=== PATIENT | female | born 1980 | race African-American/Black ===

== ENCOUNTER 2016-06-10 09:58 | Emergency (ER) | payer OTHER ==
[~2016-06-10] VITALS: Ht 154.9 cm; Wt 81.6 kg
[~2016-06-10 09:58] MED LIST: AZIT250T PO; BENZ100C PO; HYDR-971 PO; PRED50TA PO; PROAIR HFA8.5 GM INH; PROM118S2 PO; SULF1TAB24 PO
--- NOTE | 2016-06-10 10:29 | PHYS DOC ---
Past Medical History Past Medical History: No Pertinent History Past Surgical History: No Surgical History, Alcohol Use: None Drug Use: None Adult General Chief Complaint Chief Complaint: HEADACHE HPI HPI Patient is a 36 year old female who presents with back pain and headache. She states also roughly 2 days ago she started having some generalized body aches with a headache behind her eyes. She denies any neck pain fevers chills nausea or vomiting. She states it felt like "the flu" she states her back hurts in her high lumbar area and she states is on each side is not in the middle. She denies any constipation or diarrhea or dysuria. She took 800 mg of Motrin and states the headache has resolved but she feels like it "could be coming back on now" she denies any confusion. She was around her son who also had similar symptoms last week. She states she does have a history of migraines but this headache felt different than her normal migraines. Review of Systems Review of Systems Constitutional: Denies fever or chills [] Eyes: Denies change in visual acuity, redness, or eye pain [] HENT: Denies nasal congestion or sore throat [] Respiratory: Denies cough or shortness of breath [] Cardiovascular: No additional information not addressed in HPI [] GI: Denies abdominal pain, nausea, vomiting, bloody stools or diarrhea [] : Denies dysuria or hematuria [] Musculoskeletal: Positive for back pain [] Integument: Denies rash or skin lesions [] Neurologic: Denies headache, focal weakness or sensory changes [] Endocrine: Denies polyuria or polydipsia [] Current Medications Current Medications Current Medications Medications (Trade) Dose Ordered Sig/[facility] Start Time Stop Time Status Last Admin Dose Admin Acetaminophen (Tylenol) 1,000 mg 1X ONCE 06/10/16 11:00 06/10/16 11:01 DC 06/10/16 11:03 1,000 MG Allergies Allergies Allergies Coded Allergies Type Severity Reaction Last Updated Verified No Known Drug Allergies 01/11/14 No Physical Exam Physical Exam Constitutional: Well developed, well nourished, no acute distress, non-toxic appearance. [] HENT: Normocephalic, atraumatic, bilateral external ears normal, oropharynx moist, no oral exudates, nose normal. [] Eyes: PERRLA, EOMI, conjunctiva normal, no discharge. [] Neck: Normal range of motion, no tenderness, supple, no stridor. [] Cardiovascular:Heart rate regular rhythm, no murmur [] Lungs & Thorax: Bilateral breath sounds clear to auscultation [] Abdomen: Bowel sounds normal, soft, no tenderness, no masses, no pulsatile masses. [] Skin: Warm, dry, no erythema, no rash. [] Back: No tenderness midline, no CVA tenderness. [] Extremities: No tenderness, no cyanosis, no clubbing, ROM intact, no edema. [] Neurologic: Alert and oriented X 3, normal motor function, normal sensory function, no focal deficits noted. [] Psychologic: Affect normal, judgement normal, mood normal. [] Current Patient Data Vital Signs Vital Signs Date Time Temp Pulse Resp B/P Pulse Ox O2 Delivery O2 Flow Rate FiO2 06/10/16 10:35 98.5 99 18 125/91 100 Room Air 98.5 Lab Values Laboratory Tests Test 06/10/16 10:50 06/10/16 11:02 06/10/16 11:15 Urine Collection Type Unknown Urine Color Yellow Urine Clarity Clear Urine pH 7.0 Urine Specific [place] >=1.030 Urine Protein Negativemg/dL (NEG-TRACE) Urine Glucose (UA) Negativemg/dL (NEG) Urine Ketones (Stick) Tracemg/dL (NEG) Urine Blood Negative (NEG) Urine Nitrite Negative (NEG) Urine Bilirubin Negative (NEG) Urine Urobilinogen Dipstick 1.0mg/dL (0.2 mg/dL) Urine Leukocyte Esterase Small (NEG) Urine RBC 0/HPF (0-2) Urine WBC 5-10/HPF (0-4) Urine Squamous Epithelial Cells Many/LPF Urine Bacteria Few/HPF (0-FEW) Urine Mucus Marked/LPF Urine Yeast Present/HPF Urine Test Negative (NEG) Influenza Type A Antigen Negative (NEGATIVE) Influenza Type B Antigen Negative (NEGATIVE) White Blood Count 7.5x10^3/uL (4.0-11.0) Red Blood Count 4.55x10^6/uL (3.50-5.40) Hemoglobin 14.1g/dL (12.0-15.5) Hematocrit 41.7% (36.0-47.0) Mean Corpuscular Volume 92fL (79-100) Mean Corpuscular Hemoglobin 31pg (25-35) Mean Corpuscular Hemoglobin Concent 34g/dL (31-37) Red Cell Distribution Width 14.0% (11.5-14.5) Platelet Count 278x10^3/uL (140-400) Sodium Level 142mmol/L (136-145) Potassium Level 3.8mmol/L (3.5-5.1) Chloride Level 103mmol/L (98-107) Carbon Dioxide Level 30mmol/L (21-32) Anion Gap 9 (6-14) Blood Urea Nitrogen 19mg/dL (7-20) Creatinine 0.7mg/dL (0.6-1.0) Estimated GFR (Cockcroft-Gault) 114.6 BUN/Creatinine Ratio 27 (6-20) H Glucose Level 97mg/dL (70-99) Calcium Level 9.2mg/dL (8.5-10.1) Total Bilirubin 0.7mg/dL (0.2-1.0) Aspartate Amino Transferase (AST) 11U/L (15-37) L Alanine Aminotransferase (ALT) 17U/L (14-59) Alkaline Phosphatase 47U/L (46-116) Total Protein 8.1g/dL (6.4-8.2) Albumin 4.4g/dL (3.4-5.0) Albumin/Globulin Ratio 1.2 (1.0-1.7) Laboratory Tests 06/10/16 11:15 Laboratory Tests 06/10/16 11:15 EKG EKG [] Radiology/Procedures Radiology/Procedures [facility] [address] [place], [place] [id number] IMAGING REPORT Signed PATIENT: KEZIA COLLINS ACCOUNT: [id number] : 1980 LOCATION: ER AGE: 36 SEX: F EXAM STATUS: REG ER ORD. PHYSICIAN: DIANNE DIOP MD REASON: headache WAITING ON UCG. PROCEDURE: HEAD WO CONTRAST CT of the head without contrast, 06/10/2016: History: Headache Comparison is made to a study from 02/10/2008. The ventricles are within normal limits in size. There is no shift of the midline structures. There is no evidence of acute intracranial hemorrhage or mass effect. IMPRESSION: No acute intracranial abnormality is detected. PQRS Compliance Statement: One or more of the following individualized dose reduction techniques were utilized for this examination: 1. Automated exposure control 2. Adjustment of the mA and/or kV according to patient size 3. Use of iterative reconstruction technique DICTATED and SIGNED BY: CIARRA TERRY MD DATE: 06/10/16 1150 CC: DIANNE DIOP MD; NO PCP ~ Impressions: body aches Headache Course & Med Decision Making Course & Med Decision Making Pertinent Labs and Imaging studies reviewed. (See chart for details) Labs show any acute maladies. She is to follow-up with her primary care physician. She is return ER for fevers, confusion, neck stiffness or other concerns. She is instructed to take [id number] analgesics. Dragon Disclaimer Dragon Disclaimer This electronic medical record was generated, in whole or in part, using a voice recognition dictation system. Departure Departure Impression: Primary Impression: Viral syndrome Disposition: HOME, SELF-CARE Condition: STABLE Referrals: NO PCP (PCP) Patient Instructions: Viral Syndrome Additional Instructions: Influenza is negative in addition to your labs and urinalysis. Your not . You being discharged home. You can follow-up with her primary care physician. If you don not have one, the nurses will provide to a pamphlet with providers that you can follow-up with. He can take [id number] medicines for her bodyaches and other concerns. Return the ER for fevers, confusion, neck stiffness or other concerns. DIANNE DIOP MD Jun 10, 2016 10:29
[2016-06-10 10:56] LABS: NEG OBC UR NEG; POS OBC UR POS
[2016-06-10 11:00] LABS: BILIRUBIN,URINE NEGATIVE (NEG); GLUCOSE,URINE NEGATIVE (NEG); NITRITE,URINE NEGATIVE (NEG); PROTEIN,URINE NEGATIVE (NEG-TRACE)
[2016-06-10] MEDS ORDERED: ACETAMINOPHEN 500 MG TABLET PO ONE (11:00)
[2016-06-10 11:09] LABS: BACTERIA,URINE FEW /HPF (0-FEW); RBC,URINE 0 /HPF (0-2); SQUAMOUS EPITHELIAL CELL,UR MANY /LPF
[2016-06-10 11:10] LABS: YEAST,URINE PRESENT /HPF
[2016-06-10 11:25] LABS: HEMATOCRIT 41.7 % (36.0-47.0); HEMOGLOBIN 14.1 g/dL (12.0-15.5); RED BLOOD COUNT 4.55 x10^6/uL (3.50-5.40); WHITE BLOOD COUNT 7.5 x10^3/uL (4.0-11.0)
[2016-06-10 11:31] LABS: OBC FLU VALID
[2016-06-10 11:33] VITALS: BP 123/80
[2016-06-10 11:41] LABS: CALCIUM 9.2 mg/dL (8.5-10.1); CREATININE 0.7 mg/dL (0.6-1.0); GFR 114.6; POTASSIUM 3.8 mmol/L (3.5-5.1)
[2016-06-10 11:47] LABS: ALBUMIN 4.4 g/dL (3.4-5.0); ALBUMIN/GLOBULIN RATIO 1.2 (1.0-1.7); TOTAL BILIRUBIN 0.7 mg/dL (0.2-1.0); TOTAL PROTEIN 8.1 g/dL (6.4-8.2)
--- NOTE | 2016-06-10 11:54 | RAD ---
CT of the head without contrast, 06/10/2016: History: Headache Comparison is made to a study from 02/10/2008. The ventricles are within normal limits in size. There is no shift of the midline structures. There is no evidence of acute intracranial hemorrhage or mass effect. IMPRESSION: No acute intracranial abnormality is detected. PQRS Compliance Statement: One or more of the following individualized dose reduction techniques were utilized for this examination: 1. Automated exposure control 2. Adjustment of the mA and/or kV according to patient size 3. Use of iterative reconstruction technique
== END 2016-06-10 12:40 | disposition home or self-care (01) ==
LOC: ER 09:58
DX: B34.9 Viral infection, unspecified (principal); R51 Headache; G43.909 Migraine, unspecified, not intractable, without status migrainosus
CPT/HCPCS: 36415; 70450; 80053; 81001; 81025; 85027; 87086; 87804; 99285-25

== ENCOUNTER 2016-11-13 16:13 | Inpatient (IN) | payer OTHER ==
[~2016-11-13] VITALS: Ht 154.9 cm; Wt 85.3 kg
--- NOTE | 2016-11-13 17:24 | PHYS DOC ---
Past Medical History Past Medical History: No Pertinent History Past Surgical History: No Surgical History, Alcohol Use: Occasionally Drug Use: Marijuana Adult General Chief Complaint Chief Complaint: ABDOMINAL PAIN HPI HPI Patient is a 36 year old female presents to the emergency department stating that she is having generalized abdominal pain with nausea vomiting. She states that she has had a fever at home although did not take her temperature. Patient states that she was seen at [facility] today and had lab work done an ultrasound with everything negative. Patient states she continues to have complete abdominal pain and discomfort in spite of been provided with Zofran and Bentyl. Patient states at this time she is having white vaginal discharge. She states that she is sexually active with one partner she is concern for sexual transmitted infections. Patient continues to state that she has vomited 6 times within the last 24 hours. She states that there is been some blood specks noted in the saliva. Patient denies normal bowel movements with the last one being yesterday. Patient does state that she's on Suboxone with the last dose being yesterday. Patient states she is not having withdrawal as she is only taking Suboxone 2 days ago. Review of Systems Review of Systems Constitutional: Denies fever or chills [] Eyes: Denies change in visual acuity, redness, or eye pain [] HENT: Denies nasal congestion or sore throat [] Respiratory: Denies cough or shortness of breath [] Cardiovascular: No additional information not addressed in HPI [] GI: abdominal pain, nausea, vomiting, denies bloody stools or diarrhea [] : Denies dysuria or hematuria [] Musculoskeletal: Denies back pain or joint pain [] Integument: Denies rash or skin lesions [] Neurologic: Denies headache, focal weakness or sensory changes [] Endocrine: Denies polyuria or polydipsia [] Current Medications Current Medications Current Medications Medications (Trade) Dose Ordered Sig/[facility] Start Time Stop Time Status Last Admin Dose Admin Azithromycin (Zithromax) 1,000 mg 1X ONCE 11/13/16 17:30 11/13/16 17:31 DC 11/13/16 17:41 1,000 MG Ceftriaxone Sodium (Rocephin Im) 250 mg 1X ONCE 11/13/16 17:30 11/13/16 17:31 DC 11/13/16 17:40 250 MG Fentanyl Citrate (Fentanyl 2ml Vial) 50 mcg PRN Q15MIN PRN 11/13/16 18:00 11/14/16 17:59 11/13/16 18:48 50 MCG Info (Do NOT chart on this entry -- for MONITORING) 1 each PRN DAILY PRN 11/13/16 18:00 11/15/16 17:59 Iohexol (Omnipaque 240 Mg/ml) 30 ml 1X ONCE 11/13/16 18:00 11/13/16 18:01 DC 11/13/16 18:00 30 ML Iohexol (Omnipaque 300 Mg/ml) 75 ml 1X ONCE 11/13/16 18:00 11/13/16 18:01 DC 11/13/16 19:21 75 ML Metronidazole (Flagyl) 2,000 mg 1X ONCE 11/13/16 17:30 11/13/16 17:31 DC 11/13/16 17:41 2,000 MG Ondansetron HCl (Zofran) 4 mg 1X ONCE 11/13/16 18:00 11/13/16 18:01 DC 11/13/16 18:09 4 MG Promethazine HCl (Phenergan Im) 25 mg 1X ONCE 11/13/16 17:30 11/13/16 17:31 DC 11/13/16 17:40 25 MG Sodium Chloride 1,000 ml @ 1,000 mls/hr 1X ONCE 11/13/16 18:00 11/13/16 18:59 DC 11/13/16 18:10 1,000 MLS/HR Allergies Allergies Allergies Coded Allergies Type Severity Reaction Last Updated Verified No Known Drug Allergies 01/11/14 No Physical Exam Physical Exam Constitutional: Well developed, well nourished, no acute distress, non-toxic appearance. [] HENT: Normocephalic, atraumatic, bilateral external ears normal, oropharynx moist, no oral exudates, nose normal. [] Eyes: PERRLA, EOMI, conjunctiva normal, no discharge. [] Neck: Normal range of motion, no tenderness, supple, no stridor. [] Cardiovascular:Heart rate regular rhythm, no murmur [] Lungs & Thorax: Bilateral breath sounds clear to auscultation [] Abdomen: Bowel sounds hypoactive, soft, generalized abdominal tenderness, no masses, no pulsatile masses. [] Skin: Warm, dry, no erythema, no rash. [] Back: No tenderness Extremities: No tenderness, no cyanosis, no clubbing, ROM intact, no edema. [] Neurologic: Alert and oriented X 3, normal motor function, normal sensory function, no focal deficits noted. [] Psychologic: Affect normal, judgement normal, mood normal. [] Vaginal exam completed: Speculum exam patient with foul odor noted with white vaginal discharge. Manual exam bilateral adnexal tenderness, seemed to the noted. Exam completed with Laura MEREDITH at bedside Current Patient Data Vital Signs Vital Signs Date Time Temp Pulse Resp B/P (MAP) Pulse Ox O2 Delivery O2 Flow Rate FiO2 11/13/16 19:26 88 22 158/83 (108) 98 Room Air 11/13/16 16:40 99.7 99.7 Lab Values Laboratory Tests Test 11/13/16 16:26 11/13/16 16:59 11/13/16 17:15 POC Urine HCG, Qualitative Hcg negative (Negative) White Blood Count 22.3 x10^3/uL (4.0-11.0) H Red Blood Count 4.12 x10^6/uL (3.50-5.40) Hemoglobin 13.1 g/dL (12.0-15.5) Hematocrit 39.1 % (36.0-47.0) Mean Corpuscular Volume 95 fL (79-100) Mean Corpuscular Hemoglobin 32 pg (25-35) Mean Corpuscular Hemoglobin Concent 34 g/dL (31-37) Red Cell Distribution Width 13.9 % (11.5-14.5) Platelet Count 256 x10^3/uL (140-400) Neutrophils (%) (Auto) 84 % (31-73) H Lymphocytes (%) (Auto) 9 % (24-48) L Monocytes (%) (Auto) 6 % (0-9) Eosinophils (%) (Auto) 0 % (0-3) Basophils (%) (Auto) 0 % (0-3) Neutrophils # (Auto) 18.8 x10^3uL (1.8-7.7) H Lymphocytes # (Auto) 2.1 x10^3/uL (1.0-4.8) Monocytes # (Auto) 1.4 x10^3/uL (0.0-1.1) H Eosinophils # (Auto) 0.0 x10^3/uL (0.0-0.7) Basophils # (Auto) 0.1 x10^3/uL (0.0-0.2) Segmented Neutrophils % 86 % (35-66) H Lymphocytes % 6 % (24-48) L Monocytes % 7 % (0-10) Basophils % 1 % (0-3) Platelet Estimate Adequate (ADEQUATE) Sodium Level 136 mmol/L (136-145) Potassium Level 3.4 mmol/L (3.5-5.1) L Chloride Level 100 mmol/L (98-107) Carbon Dioxide Level 24 mmol/L (21-32) Anion Gap 12 (6-14) Blood Urea Nitrogen 13 mg/dL (7-20) Creatinine 0.6 mg/dL (0.6-1.0) Estimated GFR (Cockcroft-Gault) 136.9 BUN/Creatinine Ratio 22 (6-20) H Glucose Level 104 mg/dL (70-99) H Calcium Level 9.1 mg/dL (8.5-10.1) Total Bilirubin 1.4 mg/dL (0.2-1.0) H Aspartate Amino Transferase (AST) 16 U/L (15-37) Alanine Aminotransferase (ALT) 17 U/L (14-59) Alkaline Phosphatase 58 U/L (46-116) Total Protein 8.1 g/dL (6.4-8.2) Albumin 4.2 g/dL (3.4-5.0) Albumin/Globulin Ratio 1.1 (1.0-1.7) Urine Collection Type U cath Urine Color Yellow Urine Clarity Clear Urine pH 7.0 Urine Specific [place] >=1.030 Urine Protein 30 mg/dL (NEG-TRACE) Urine Glucose (UA) Negative mg/dL (NEG) Urine Ketones (Stick) 15 mg/dL (NEG) Urine Blood Small (NEG) Urine Nitrite Negative (NEG) Urine Bilirubin Negative (NEG) Urine Urobilinogen Dipstick 1.0 mg/dL (0.2 mg/dL) Urine Leukocyte Esterase Negative (NEG) Urine RBC 6-10 /HPF (0-2) Urine WBC Occ /HPF (0-4) Urine Squamous Epithelial Cells Few /LPF Urine Bacteria Few /HPF (0-FEW) Urine Mucus Mod /LPF Urine Opiates Screen Pos (NEG) Urine Methadone Screen Neg (NEG) Urine Barbiturates Neg (NEG) Urine Phencyclidine Screen Neg (NEG) Urine Amphetamine/Methamphetamine Neg (NEG) Urine Benzodiazepines Screen Neg (NEG) Urine Cocaine Screen Neg (NEG) Urine Cannabinoids Screen Pos (NEG) Urine Ethyl Alcohol Neg (NEG) Laboratory Tests 11/13/16 16:59 Laboratory Tests 11/13/16 16:59 Microbiology 11/13/16 Wet Prep - Final, Complete EKG EKG [] Radiology/Procedures Radiology/Procedures [] Course & Med Decision Making Course & Med Decision Making Pertinent Labs and Imaging studies reviewed. (See chart for details) Patient will be provided with Phenergan IM for nausea vomiting, she'll be provided with a CT scan for abdominal evaluation. CBC, CMP, UA with vaginal cultures. Patient will be treated with Rocephin and Zithromax and Flagyl. 1944 CT report positive for appendicitis, diameter of the appendix is 13 mm with no perforation or abscess noted. Hospitalist was notified as well as surgery. Patient will be admitted into the hospital. Spoke with Dr. Tamez in regards to surgery for this patient. Patient is to remain nothing by mouth patient is to be started on Zosyn and at the current time he is unsure of his estimated time of surgery as he is currently in surgery at this time. Patient was provided with CT results. She is aware that she will be admitted for possible surgery for an appendicitis. Patient was instructed to not have anything to eat or drink. Patient states that she needed to contact her family. [] Dragon Disclaimer Dragon Disclaimer This electronic medical record was generated, in whole or in part, using a voice recognition dictation system. Departure Departure Impression: Primary Impression: Appendicitis Disposition: 09 ADMITTED INPATIENT (ERASED) Admitting Physician: Other (spoke with Dr. Corral in regards to admission) Condition: STABLE Referrals: NO PCP (PCP) MORGAN MEZA [employer] Nov 13, 2016 17:24
[2016-11-13] MEDS ORDERED: AZITHROMYCIN 250 MG TABLET. PO ONE (17:30)
[2016-11-13] MEDS ORDERED: cefTRIAXone IM 250 MG VIAL IM ONE (17:30)
[2016-11-13] MEDS ORDERED: PROMETHAZINE IM 25 MG/ML VIAL IM ONE (17:30)
[2016-11-13] MEDS ORDERED: metroNIDAZOLE 500 MG TABLET PO ONE (17:30)
[2016-11-13 17:38] LABS: BASO # 0.1 x10^3/uL (0.0-0.2); BASO % 0 % (0-3); EOS % 0 % (0-3); HEMATOCRIT 39.1 % (36.0-47.0); HEMOGLOBIN 13.1 g/dL (12.0-15.5); LYMPH # 2.1 x10^3/uL (1.0-4.8); LYMPH % 9 % (24-48); MEAN CORPUSCULAR HEMOGLOBIN 32 pg (25-35); MEAN CORPUSCULAR HGB CONC 34 g/dL (31-37); MEAN CORPUSCULAR VOLUME 95 fL (79-100); MONO % 6 % (0-9); NEUT % 84 % (31-73); PLATELET COUNT 256 x10^3/uL (140-400); RED BLOOD COUNT 4.12 x10^6/uL (3.50-5.40); RED CELL DISTRIBUTION WIDTH 13.9 % (11.5-14.5); WHITE BLOOD COUNT 22.3 x10^3/uL (4.0-11.0)
[2016-11-13 17:38] LABS: BILIRUBIN,URINE NEGATIVE (NEG); GLUCOSE,URINE NEGATIVE (NEG); NITRITE,URINE NEGATIVE (NEG); PROTEIN,URINE 30 mg/dL (NEG-TRACE)
[2016-11-13 17:43] LABS: CALCIUM 9.1 mg/dL (8.5-10.1); CREATININE 0.6 mg/dL (0.6-1.0); GFR 136.9; POTASSIUM 3.4 mmol/L (3.5-5.1)
[2016-11-13 17:45] LABS: BARBITURATES NEG (NEG); BENZODIAZEPINES NEG (NEG); CANNABINOIDS POS (NEG); COCAINE NEG (NEG); METHADONE NEG (NEG); OPIATES POS (NEG); PHENCYCLIDINE NEG (NEG)
[2016-11-13 17:47] LABS: BACTERIA,URINE FEW /HPF (0-FEW); SQUAMOUS EPITHELIAL CELL,UR FEW /LPF; WBC,URINE OCC /HPF (0-4)
[2016-11-13 17:49] LABS: ALBUMIN 4.2 g/dL (3.4-5.0); ALBUMIN/GLOBULIN RATIO 1.1 (1.0-1.7); TOTAL BILIRUBIN 1.4 mg/dL (0.2-1.0); TOTAL PROTEIN 8.1 g/dL (6.4-8.2)
[2016-11-13] MEDS ORDERED: IOHEXOL 300 MG/ML 75 ML VIAL IV ONE (18:00)
[2016-11-13] MEDS ORDERED: CONTRAST GIVEN MC PRN (18:00)
[2016-11-13] MEDS ORDERED: IOHEXOL 240 MG/ML 50ML VIAL. PO ONE (18:00)
[2016-11-13] MEDS ORDERED: ONDANSETRON PF 4 MG/2 ML VIAL. IV ONE (18:00)
[2016-11-13] MEDS ORDERED: IV NORMAL SALINE 1000ML BAG 1,000 ML IV ONE (18:00)
[2016-11-13] MEDS: fentaNYL PF VIAL 100 MCG/2 ML VIAL IV PRN ×3 (18:09→19:58)
[2016-11-13 18:25] LABS: % BASOS 1 % (0-3); PLT ESTIMATE ADEQUATE (ADEQUATE)
[2016-11-13] MEDS: IV NORMAL SALINE 1000ML BAG 1,000 ML IV SCH ×2 (19:50→21:34)
[2016-11-13] MEDS ORDERED: ONDANSETRON PF 4 MG/2 ML VIAL. IV PRN (20:00)
[2016-11-13] MEDS ORDERED: fentaNYL PF VIAL 100 MCG/2 ML VIAL IV PRN (20:00)
[2016-11-13] MEDS ORDERED: PIPERACILLIN/TAZOBACTAM 3.375 GM in IV NORMAL SALINE 50ML 50 ML IV ONE (20:15)
[2016-11-13 20:30] VITALS: BP 115/77
[2016-11-13] MEDS ORDERED: ZOLPIDEM 5 MG TABLET. PO PRN (21:30)
[2016-11-13] MEDS ORDERED: HYDROmorphone 2 MG/ML VIAL IVP PRN (21:30)
[2016-11-13] MEDS ORDERED: oxyCODONE ER 10 MG TAB.ER.12H PO ONE (21:45)
[2016-11-13] MEDS: NICOTINE 21MG PATCH. TD SCH (22:14)
--- NOTE | 2016-11-13 22:27 | RAD ---
CT Abdomen and Pelvis With Intravenous Contrast: History: Severe right lower quadrant pain and vomiting. Comparison: None. Technique: After administration of oral and intravenous contrast administration, 75 mL Omnipaque-300, CT of the abdomen and pelvis was performed. Exposure: One or more of the following individualized dose reduction techniques were utilized for this examination: 1. Automated exposure control 2. Adjustment of the mA and/or kV according to patient size 3. Use of iterative reconstruction technique Findings: Liver, spleen, pancreas, gallbladder, and bilateral adrenal glands unremarkable. Bilateral kidneys enhance symmetrically. No bowel obstruction or inflammation is identified. Uterus is unremarkable. Urinary bladder is unremarkable. No free air is seen in the abdomen or pelvis. No abscess is seen. Appendix is enlarged and inflamed. Appendiceal diameter is 13 mm. Findings indicate acute appendicitis. Impression: 1. CT evidence of acute appendicitis. No perforation or abscess is seen. Electronically signed by: Marvel Sandoval MD (11/13/2016 10:24 PM)
--- NOTE | 2016-11-13 22:41 | PDOC1 ---
History and Physical Date of Admission Date of Admission DATE: 11/13/16 TIME: 22:00 Identification/Chief Complaint Chief Complaint Abd pain Problems: Source Source: Patient History of Present Illness History of Present Illness Mrs Gamboa is a 36 y/o woman who awoke with generalized abd pain at 4 AM this morning. pain was severe, especially in right lower quadrant , but radiating all over. This was associated with nausea and vomiting as well as fever. She initially presented to [facility] in the [employer], but was sent home without any abnormal findings and was advised to return if symptoms were recurrent. She decided to come to [facility] when symptoms persisted. Here, WBC wer 22,000, and CT was consistent with acute appendicitis. Past Medical History Past Medical History none Past Surgical History Past Surgical History: Family History Family History no GI/ issue known Social History ALCOHOL: occassional Drugs: Marijuana Current Problem List Problem List Problems Medical Problems: (1) Appendicitis Status: Acute Problems: Current Medications Current Medications Current Medications Ceftriaxone Sodium (Rocephin Im) 250 mg 1X ONCE IM Last administered on 17:40; Start 11/13/16 at 17:30; Stop 11/13/16 at 17:31; Status DC Metronidazole (Flagyl) 2,000 mg 1X ONCE PO Last administered on 11/13/16 17: 41; Start 11/13/16 at 17:30; Stop 11/13/16 at 17:31; Status DC Azithromycin (Zithromax) 1,000 mg 1X ONCE PO Last administered on 11/13/16 17 :41; Start 11/13/16 at 17:30; Stop 11/13/16 at 17:31; Status DC Promethazine HCl (Phenergan Im) 25 mg 1X ONCE IM Last administered on 17:40; Start 11/13/16 at 17:30; Stop 11/13/16 at 17:31; Status DC Iohexol (Omnipaque 300 Mg/ml) 75 ml 1X ONCE IV Last administered on 11/13/16 19:21; Start 11/13/16 at 18:00; Stop 11/13/16 at 18:01; Status DC Iohexol (Omnipaque 240 Mg/ml) 30 ml 1X ONCE PO Last administered on 11/13/16 18:00; Start 11/13/16 at 18:00; Stop 11/13/16 at 18:01; Status DC Info (Do NOT chart on this entry -- for MONITORING) 1 each PRN DAILY PRN MC SEE COMMENTS; Start 11/13/16 at 18:00; Stop 11/15/16 at 17:59 Sodium Chloride 1,000 ml @ 1,000 mls/hr 1X ONCE IV Last administered on 18:10; Start 11/13/16 at 18:00; Stop 11/13/16 at 18:59; Status DC Ondansetron HCl (Zofran) 4 mg 1X ONCE IV Last administered on 11/13/16 18:09 ; Start 11/13/16 at 18:00; Stop 11/13/16 at 18:01; Status DC Fentanyl Citrate (Fentanyl 2ml Vial) 50 mcg PRN Q15MIN PRN IV PAIN GREATER THAN 3/10 Last administered on 11/13/16 19:58; Start 11/13/16 at 18:00; Stop at 17:59 Ondansetron HCl (Zofran) 4 mg PRN Q8HRS PRN IV NAUSEA/VOMITING Last administered on 11/13/16 22:33; Start 11/13/16 at 20:00; Stop 11/14/16 at 19:59 Fentanyl Citrate (Fentanyl 2ml Vial) 50 mcg PRN Q1HR PRN IV PAIN Last administered on 11/13/16 21:33; Start 11/13/16 at 20:00; Stop 11/14/16 at 19:59 Sodium Chloride 1,000 ml @ 125 mls/hr Q8H IV Last administered on 11/13/16 21 :34; Start 11/13/16 at 19:50; Stop 11/14/16 at 19:49 Piperacillin Sod/ Tazobactam Sod 3.375 gm/Sodium Chloride 50 ml @ 100 mls/hr Q6HRS IV ; Start 11/14/16 at 00:00 Piperacillin Sod/ Tazobactam Sod 3.375 gm/Sodium Chloride 50 ml @ 100 mls/hr 1X ONCE IV Last administered on 11/13/16 20:17; Start 11/13/16 at 20:15; Stop 11/13/16 at 20:44; Status DC Nicotine (Nicoderm Cq 21mg) 1 patch DAILY TD Last administered on 11/13/16 22: 14; Start 11/13/16 at 21:30 Oxycodone HCl (OxyCONTIN) 10 mg 1X ONCE PO Last administered on 11/13/16 22: 14; Start 11/13/16 at 21:45; Stop 11/13/16 at 21:46; Status DC Zolpidem Tartrate (Ambien) 5 mg PRN QHS PRN PO INSOMNIA Last administered on 22:14; Start 11/13/16 at 21:30 Hydromorphone HCl (Dilaudid) 0.5 mg PRN Q4HRS PRN IVP PAIN Last administered on 11/13/16 22:34; Start 11/13/16 at 21:30 Active Scripts Active Bactrim Ds Tablet (Sulfamethoxazole/Trimethoprim) 1 Each Tablet 1 Tab PO BID [place] 5-325 Tablet (Acetaminophen/Hydrocodone Bitart) 1 Each Tablet 1-2 Tab PO Q4-6HRS Promethazine-Codeine Syrup (Promethazine Hcl/Codeine) 118 Ml Syrup 5 Ml PO Q4- 6HRS Zithromax (Azithromycin) 250 Mg Tablet 1 Pkg PO UD Proair Hfa Inhaler (Albuterol Sulfate) 8.5 Gm Hfa.aer.ad 1 Puff INH PRN Q6HRS PRN Tessalon Perle (Benzonatate) 100 Mg Capsule 1 Cap PO TID Prednisone 50 Mg Tablet 1 Tab PO DAILY Allergies Allergies: Coded Allergies: No Known Drug Allergies (Unverified , 01/11/14) Vitals Vitals Vital Signs Date Time Temp Pulse Resp B/P (MAP) Pulse Ox O2 Delivery O2 Flow Rate FiO2 11/13/16 22:34 16 93 11/13/16 22:14 Room Air 11/13/16 20:30 99.3 76 115/77 (90) 99.3 Labs Labs Laboratory Tests Test 11/13/16 16:26 11/13/16 16:59 11/13/16 17:15 Bedside Urine HCG, Qualitative Hcg negative (Negative) White Blood Count 22.3 x10^3/uL (4.0-11.0) Red Blood Count 4.12 x10^6/uL (3.50-5.40) Hemoglobin 13.1 g/dL (12.0-15.5) Hematocrit 39.1 % (36.0-47.0) Mean Corpuscular Volume 95 fL (79-100) Mean Corpuscular Hemoglobin 32 pg (25-35) Mean Corpuscular Hemoglobin Concent 34 g/dL (31-37) Red Cell Distribution Width 13.9 % (11.5-14.5) Platelet Count 256 x10^3/uL (140-400) Neutrophils (%) (Auto) 84 % (31-73) Lymphocytes (%) (Auto) 9 % (24-48) Monocytes (%) (Auto) 6 % (0-9) Eosinophils (%) (Auto) 0 % (0-3) Basophils (%) (Auto) 0 % (0-3) Neutrophils # (Auto) 18.8 x10^3uL (1.8-7.7) Lymphocytes # (Auto) 2.1 x10^3/uL (1.0-4.8) Monocytes # (Auto) 1.4 x10^3/uL (0.0-1.1) Eosinophils # (Auto) 0.0 x10^3/uL (0.0-0.7) Basophils # (Auto) 0.1 x10^3/uL (0.0-0.2) Segmented Neutrophils % 86 % (35-66) Lymphocytes % 6 % (24-48) Monocytes % 7 % (0-10) Basophils % 1 % (0-3) Platelet Estimate Adequate (ADEQUATE) Sodium Level 136 mmol/L (136-145) Potassium Level 3.4 mmol/L (3.5-5.1) Chloride Level 100 mmol/L (98-107) Carbon Dioxide Level 24 mmol/L (21-32) Anion Gap 12 (6-14) Blood Urea Nitrogen 13 mg/dL (7-20) Creatinine 0.6 mg/dL (0.6-1.0) Estimated GFR (Cockcroft-Gault) 136.9 BUN/Creatinine Ratio 22 (6-20) Glucose Level 104 mg/dL (70-99) Calcium Level 9.1 mg/dL (8.5-10.1) Total Bilirubin 1.4 mg/dL (0.2-1.0) Aspartate Amino Transf (AST/SGOT) 16 U/L (15-37) Alanine Aminotransferase (ALT/SGPT) 17 U/L (14-59) Alkaline Phosphatase 58 U/L (46-116) Total Protein 8.1 g/dL (6.4-8.2) Albumin 4.2 g/dL (3.4-5.0) Albumin/Globulin Ratio 1.1 (1.0-1.7) Urine Collection Type U cath Urine Color Yellow Urine Clarity Clear Urine pH 7.0 Urine Specific [place] >=1.030 Urine Protein 30 mg/dL (NEG-TRACE) Urine Glucose (UA) Negative mg/dL (NEG) Urine Ketones (Stick) 15 mg/dL (NEG) Urine Blood Small (NEG) Urine Nitrite Negative (NEG) Urine Bilirubin Negative (NEG) Urine Urobilinogen Dipstick 1.0 mg/dL (0.2 mg/dL) Urine Leukocyte Esterase Negative (NEG) Urine RBC 6-10 /HPF (0-2) Urine WBC Occ /HPF (0-4) Urine Squamous Epithelial Cells Few /LPF Urine Bacteria Few /HPF (0-FEW) Urine Mucus Mod /LPF Urine Opiates Screen Pos (NEG) Urine Methadone Screen Neg (NEG) Urine Barbiturates Neg (NEG) Urine Phencyclidine Screen Neg (NEG) Urine Amphetamine/Methamphetamine Neg (NEG) Urine Benzodiazepines Screen Neg (NEG) Urine Cocaine Screen Neg (NEG) Urine Cannabinoids Screen Pos (NEG) Urine Ethyl Alcohol Neg (NEG) Laboratory Tests Test 11/13/16 16:26 11/13/16 16:59 11/13/16 17:15 Bedside Urine HCG, Qualitative Hcg negative (Negative) White Blood Count 22.3 x10^3/uL (4.0-11.0) Red Blood Count 4.12 x10^6/uL (3.50-5.40) Hemoglobin 13.1 g/dL (12.0-15.5) Hematocrit 39.1 % (36.0-47.0) Mean Corpuscular Volume 95 fL (79-100) Mean Corpuscular Hemoglobin 32 pg (25-35) Mean Corpuscular Hemoglobin Concent 34 g/dL (31-37) Red Cell Distribution Width 13.9 % (11.5-14.5) Platelet Count 256 x10^3/uL (140-400) Neutrophils (%) (Auto) 84 % (31-73) Lymphocytes (%) (Auto) 9 % (24-48) Monocytes (%) (Auto) 6 % (0-9) Eosinophils (%) (Auto) 0 % (0-3) Basophils (%) (Auto) 0 % (0-3) Neutrophils # (Auto) 18.8 x10^3uL (1.8-7.7) Lymphocytes # (Auto) 2.1 x10^3/uL (1.0-4.8) Monocytes # (Auto) 1.4 x10^3/uL (0.0-1.1) Eosinophils # (Auto) 0.0 x10^3/uL (0.0-0.7) Basophils # (Auto) 0.1 x10^3/uL (0.0-0.2) Segmented Neutrophils % 86 % (35-66) Lymphocytes % 6 % (24-48) Monocytes % 7 % (0-10) Basophils % 1 % (0-3) Platelet Estimate Adequate (ADEQUATE) Sodium Level 136 mmol/L (136-145) Potassium Level 3.4 mmol/L (3.5-5.1) Chloride Level 100 mmol/L (98-107) Carbon Dioxide Level 24 mmol/L (21-32) Anion Gap 12 (6-14) Blood Urea Nitrogen 13 mg/dL (7-20) Creatinine 0.6 mg/dL (0.6-1.0) Estimated GFR (Cockcroft-Gault) 136.9 BUN/Creatinine Ratio 22 (6-20) Glucose Level 104 mg/dL (70-99) Calcium Level 9.1 mg/dL (8.5-10.1) Total Bilirubin 1.4 mg/dL (0.2-1.0) Aspartate Amino Transf (AST/SGOT) 16 U/L (15-37) Alanine Aminotransferase (ALT/SGPT) 17 U/L (14-59) Alkaline Phosphatase 58 U/L (46-116) Total Protein 8.1 g/dL (6.4-8.2) Albumin 4.2 g/dL (3.4-5.0) Albumin/Globulin Ratio 1.1 (1.0-1.7) Urine Collection Type U cath Urine Color Yellow Urine Clarity Clear Urine pH 7.0 Urine Specific [place] >=1.030 Urine Protein 30 mg/dL (NEG-TRACE) Urine Glucose (UA) Negative mg/dL (NEG) Urine Ketones (Stick) 15 mg/dL (NEG) Urine Blood Small (NEG) Urine Nitrite Negative (NEG) Urine Bilirubin Negative (NEG) Urine Urobilinogen Dipstick 1.0 mg/dL (0.2 mg/dL) Urine Leukocyte Esterase Negative (NEG) Urine RBC 6-10 /HPF (0-2) Urine WBC Occ /HPF (0-4) Urine Squamous Epithelial Cells Few /LPF Urine Bacteria Few /HPF (0-FEW) Urine Mucus Mod /LPF Urine Opiates Screen Pos (NEG) Urine Methadone Screen Neg (NEG) Urine Barbiturates Neg (NEG) Urine Phencyclidine Screen Neg (NEG) Urine Amphetamine/Methamphetamine Neg (NEG) Urine Benzodiazepines Screen Neg (NEG) Urine Cocaine Screen Neg (NEG) Urine Cannabinoids Screen Pos (NEG) Urine Ethyl Alcohol Neg (NEG) VTE Prophylaxis Ordered VTE Prophylaxis Devices: Yes VTE Pharmacological Prophylaxi: Contraindicated Assessment/Plan Assessment/Plan Mrs Gamboa is a 36 y/o woman presenting with appendicitis. Surgery has been consulted and she is tentatively scheduled for appendectomy tomorrow. will continue Zosyn. Main issue overnight will be pain control. Will give her a one-time dose of oxycontin 10 to hopefully allow he some sleep tonight. She is fentanyl PRN, which helps, but not long enough. Morphine did not help at all in the ER. trial of dilaudid 0.5 IV. Nausea will be addressed with Zofran and compazine PRN. cont IVF for now. BOB ARCE MD Nov 13, 2016 22:41
[2016-11-13 23:08] VITALS: BP 129/83
[2016-11-13] MEDS: PIPERACILLIN/TAZOBACTAM 3.375 GM in IV NORMAL SALINE 50ML 50 ML IV SCH (23:44)
[2016-11-14] VITALS (12 sets, daily range): BP systolic 108–127; BP diastolic 60–84
[2016-11-14] MEDS ORDERED: PROCHLORPERAZINE 10 MG/2 ML VIAL. IM PRN
[2016-11-14] MEDS: HYDROmorphone 2 MG/ML VIAL IVP PRN ×10 (02:29→22:51)
--- NOTE | 2016-11-14 03:31 | ACF ---
Admission Forms Criteria ABDOMINAL PAIN Clinical Indications for Admission to Inpatient Care (Place 'X' for any and all applicable criteria): Admission is indicated for ANY ONE of the following(1)(2)(3)(4)(5): [X]I. Inpatient admission required rather than observation care (Also use Abdominal Pain: Observation Care, as appropriate) because of ANY ONE of the following: [X]a) Severe pain requiring acute inpatient management [X]b) Identification of etiology/finding that requires inpatient care (eg, aortic dissection, free air) [ ]c) Absent bowel sounds with complete ileus(6) [ ]d) Suspected toxic megacolon [ ]e) Severe electrolyte abnormalities requiring inpatient care [ ]f) High fever or infection requiring inpatient admission as indicated by ANY ONE of following(7)(8): [ ] i) Appropriate outpatient or observational care antimicrobial treatment unavailable, not effective, or not feasible [ ] ii) Documented bacteremia [ ] iii) Temperature > 104.9 degrees F (oral) [ ] iv) T >103.1 F (oral) or < 96.8 F(rectal) that does not respond to all emergency treatment measures [ ]g) Signs of intestinal obstruction [B] [ ]h) Hemodynamic instability [ ]i) IV fluid to replace significant ongoing losses (greater than 3 L/m2 per day) (12)(13) [ ]j) Percutaneous or open drainage (eg, abscess, biliary tract ) procedures [ ]k) Parenteral nutrition regimen that must be implemented on inpatient basis [ ]l) Other condition,treatment or monitoring requiring inpatient admission. [ ]II. Peritoneal signs present [ ]III. Surgery needed that cannot be performed on an ambulatory basis. [ ]IV. Evaluation requires patient to not eat or drink for extended period ( eg, more than 24 hours). [ ]V. Contraindications and/or Inappropriate clinical situations for Observational Care in patients with abdominal pain, when ANY ONE of the following is required: [ ]a) Thorough evaluation is required to prevent catastrophic events due to delays in diagnosing (e.g.Mesenteric ischemia) 1,3 [ ]b) Patient with severe pathology or with chronic symptoms unlikely to improve in the ED stay (3) [ ]. General contraindications and/or Inappropriate clinical situations for Observational Care in patients with abdominal pain, when ANY ONE of the following is required: [ ]a) Prediction of prolongation of LOS based on ANY ONE of the following may be considered as a contraindication for observational care 2, 3, 4, 5, 6, 7, 8, 9, 10, 11 [ ]i) Age > 65 yrs. [ ]ii) Patient arriving by ambulance [ ]iii) Patient with high acuity [ ]iv) Patient requiring vital sign monitoring [ ]v) Patient on IV medication [ ]b) Systolic blood pressures 180mmHg 3,12 [ ]c) Patient with altered mental status including delirium and other alteration of consciousness, (3) [ ]d) Patient whose discharge disposition will be to a penitentiary home or rehabilitation home should not be managed in Emergency Department Observation Unit. CMS rule requires 3 days hospital stay before such placement.3,13 [ ]e) Patient with failure to thrive due to broad array of etiologies 3,16,17 [ ]f) Inability to ambulate 3,14 Extended stay beyond goal length of stay may be needed for(2)(3): [ ]a) Persistent abdominal pain with suspected intra-abdominal process [ ]b) Diagnosed condition requiring continued stay (e.g., pancreatitis, complicated diverticulitis) [ ]c) Surgery (e.g., colectomy) The original [facility] content created by [employer] has been revised. The portions of the content which have been revised are identified through the use of italic text or in bold, and [facility] has neither reviewed nor approved the modified material.All other unmodified content is copyright [employer]. Please see references footnoted in the original [facility] edition 2016 Admission Criteria Met?: Yes TRACIE FLOREZ Nov 14, 2016 03:31
[2016-11-14] MEDS: PIPERACILLIN/TAZOBACTAM 3.375 GM in IV NORMAL SALINE 50ML 50 ML IV SCH ×4 (06:13→22:50)
[2016-11-14] MEDS: IV NORMAL SALINE 1000ML BAG 1,000 ML IV SCH (06:18)
[2016-11-14] MEDS: NICOTINE 21MG PATCH. TD SCH (06:18)
--- NOTE | 2016-11-14 11:09 | PDOC ---
PROGRESS NOTES Chief Complaint Chief Complaint Acute appendicitis. Main issue overnight will be pain control. Will give her a one-time dose of oxycontin 10 to hopefully allow he some sleep tonight. She is fentanyl PRN, which helps, but not long enough. Morphine did not help at all in the ER. trial of dilaudid 0.5 IV. Nausea will be addressed with Zofran and compazine PRN. cont IVF for now. History of Present Illness History of Present Illness appendectomy today 12:30 will continue Zosyn. IV K+ 20 meq. check labs in AM before DC Vitals Vitals Vital Signs Date Time Temp Pulse Resp B/P (MAP) Pulse Ox O2 Delivery O2 Flow Rate FiO2 11/14/16 09:33 Room Air 11/14/16 07:00 97.7 80 20 116/69 (85) 93 97.7 Physical Exam General: Alert, Cooperative, mild distress Heart: Regular rate, Normal S1, No murmurs Lungs: Wheezing Abdomen: Normal bowel sounds, Soft (very tender RLQ, minimal pressure caused severe pain, w./ guarding, no peritoneal sign) Skin: No rashes Labs LABS Laboratory Tests Test 11/13/16 16:26 11/13/16 16:59 11/13/16 17:15 Bedside Urine HCG, Qualitative Hcg negative (Negative) White Blood Count 22.3 x10^3/uL (4.0-11.0) Red Blood Count 4.12 x10^6/uL (3.50-5.40) Hemoglobin 13.1 g/dL (12.0-15.5) Hematocrit 39.1 % (36.0-47.0) Mean Corpuscular Volume 95 fL (79-100) Mean Corpuscular Hemoglobin 32 pg (25-35) Mean Corpuscular Hemoglobin Concent 34 g/dL (31-37) Red Cell Distribution Width 13.9 % (11.5-14.5) Platelet Count 256 x10^3/uL (140-400) Neutrophils (%) (Auto) 84 % (31-73) Lymphocytes (%) (Auto) 9 % (24-48) Monocytes (%) (Auto) 6 % (0-9) Eosinophils (%) (Auto) 0 % (0-3) Basophils (%) (Auto) 0 % (0-3) Neutrophils # (Auto) 18.8 x10^3uL (1.8-7.7) Lymphocytes # (Auto) 2.1 x10^3/uL (1.0-4.8) Monocytes # (Auto) 1.4 x10^3/uL (0.0-1.1) Eosinophils # (Auto) 0.0 x10^3/uL (0.0-0.7) Basophils # (Auto) 0.1 x10^3/uL (0.0-0.2) Segmented Neutrophils % 86 % (35-66) Lymphocytes % 6 % (24-48) Monocytes % 7 % (0-10) Basophils % 1 % (0-3) Platelet Estimate Adequate (ADEQUATE) Sodium Level 136 mmol/L (136-145) Potassium Level 3.4 mmol/L (3.5-5.1) Chloride Level 100 mmol/L (98-107) Carbon Dioxide Level 24 mmol/L (21-32) Anion Gap 12 (6-14) Blood Urea Nitrogen 13 mg/dL (7-20) Creatinine 0.6 mg/dL (0.6-1.0) Estimated GFR (Cockcroft-Gault) 136.9 BUN/Creatinine Ratio 22 (6-20) Glucose Level 104 mg/dL (70-99) Calcium Level 9.1 mg/dL (8.5-10.1) Total Bilirubin 1.4 mg/dL (0.2-1.0) Aspartate Amino Transf (AST/SGOT) 16 U/L (15-37) Alanine Aminotransferase (ALT/SGPT) 17 U/L (14-59) Alkaline Phosphatase 58 U/L (46-116) Total Protein 8.1 g/dL (6.4-8.2) Albumin 4.2 g/dL (3.4-5.0) Albumin/Globulin Ratio 1.1 (1.0-1.7) Urine Collection Type U cath Urine Color Yellow Urine Clarity Clear Urine pH 7.0 Urine Specific [place] >=1.030 Urine Protein 30 mg/dL (NEG-TRACE) Urine Glucose (UA) Negative mg/dL (NEG) Urine Ketones (Stick) 15 mg/dL (NEG) Urine Blood Small (NEG) Urine Nitrite Negative (NEG) Urine Bilirubin Negative (NEG) Urine Urobilinogen Dipstick 1.0 mg/dL (0.2 mg/dL) Urine Leukocyte Esterase Negative (NEG) Urine RBC 6-10 /HPF (0-2) Urine WBC Occ /HPF (0-4) Urine Squamous Epithelial Cells Few /LPF Urine Bacteria Few /HPF (0-FEW) Urine Mucus Mod /LPF Urine Opiates Screen Pos (NEG) Urine Methadone Screen Neg (NEG) Urine Barbiturates Neg (NEG) Urine Phencyclidine Screen Neg (NEG) Urine Amphetamine/Methamphetamine Neg (NEG) Urine Benzodiazepines Screen Neg (NEG) Urine Cocaine Screen Neg (NEG) Urine Cannabinoids Screen Pos (NEG) Urine Ethyl Alcohol Neg (NEG) Review of Systems Review of Systems abd pain only no n.v/d is NPO Assessment and Plan Assessmemt and Plan Problems Medical Problems: (1) Appendicitis Status: Acute Problems: Comment Review of Relevant I have reviewed the following items kurtis (where applicable) has been applied. Labs Laboratory Tests Test 11/13/16 16:26 11/13/16 16:59 11/13/16 17:15 Bedside Urine HCG, Qualitative Hcg negative (Negative) White Blood Count 22.3 x10^3/uL (4.0-11.0) Red Blood Count 4.12 x10^6/uL (3.50-5.40) Hemoglobin 13.1 g/dL (12.0-15.5) Hematocrit 39.1 % (36.0-47.0) Mean Corpuscular Volume 95 fL (79-100) Mean Corpuscular Hemoglobin 32 pg (25-35) Mean Corpuscular Hemoglobin Concent 34 g/dL (31-37) Red Cell Distribution Width 13.9 % (11.5-14.5) Platelet Count 256 x10^3/uL (140-400) Neutrophils (%) (Auto) 84 % (31-73) Lymphocytes (%) (Auto) 9 % (24-48) Monocytes (%) (Auto) 6 % (0-9) Eosinophils (%) (Auto) 0 % (0-3) Basophils (%) (Auto) 0 % (0-3) Neutrophils # (Auto) 18.8 x10^3uL (1.8-7.7) Lymphocytes # (Auto) 2.1 x10^3/uL (1.0-4.8) Monocytes # (Auto) 1.4 x10^3/uL (0.0-1.1) Eosinophils # (Auto) 0.0 x10^3/uL (0.0-0.7) Basophils # (Auto) 0.1 x10^3/uL (0.0-0.2) Segmented Neutrophils % 86 % (35-66) Lymphocytes % 6 % (24-48) Monocytes % 7 % (0-10) Basophils % 1 % (0-3) Platelet Estimate Adequate (ADEQUATE) Sodium Level 136 mmol/L (136-145) Potassium Level 3.4 mmol/L (3.5-5.1) Chloride Level 100 mmol/L (98-107) Carbon Dioxide Level 24 mmol/L (21-32) Anion Gap 12 (6-14) Blood Urea Nitrogen 13 mg/dL (7-20) Creatinine 0.6 mg/dL (0.6-1.0) Estimated GFR (Cockcroft-Gault) 136.9 BUN/Creatinine Ratio 22 (6-20) Glucose Level 104 mg/dL (70-99) Calcium Level 9.1 mg/dL (8.5-10.1) Total Bilirubin 1.4 mg/dL (0.2-1.0) Aspartate Amino Transf (AST/SGOT) 16 U/L (15-37) Alanine Aminotransferase (ALT/SGPT) 17 U/L (14-59) Alkaline Phosphatase 58 U/L (46-116) Total Protein 8.1 g/dL (6.4-8.2) Albumin 4.2 g/dL (3.4-5.0) Albumin/Globulin Ratio 1.1 (1.0-1.7) Urine Collection Type U cath Urine Color Yellow Urine Clarity Clear Urine pH 7.0 Urine Specific [place] >=1.030 Urine Protein 30 mg/dL (NEG-TRACE) Urine Glucose (UA) Negative mg/dL (NEG) Urine Ketones (Stick) 15 mg/dL (NEG) Urine Blood Small (NEG) Urine Nitrite Negative (NEG) Urine Bilirubin Negative (NEG) Urine Urobilinogen Dipstick 1.0 mg/dL (0.2 mg/dL) Urine Leukocyte Esterase Negative (NEG) Urine RBC 6-10 /HPF (0-2) Urine WBC Occ /HPF (0-4) Urine Squamous Epithelial Cells Few /LPF Urine Bacteria Few /HPF (0-FEW) Urine Mucus Mod /LPF Urine Opiates Screen Pos (NEG) Urine Methadone Screen Neg (NEG) Urine Barbiturates Neg (NEG) Urine Phencyclidine Screen Neg (NEG) Urine Amphetamine/Methamphetamine Neg (NEG) Urine Benzodiazepines Screen Neg (NEG) Urine Cocaine Screen Neg (NEG) Urine Cannabinoids Screen Pos (NEG) Urine Ethyl Alcohol Neg (NEG) Laboratory Tests Test 11/13/16 16:26 11/13/16 16:59 11/13/16 17:15 Bedside Urine HCG, Qualitative Hcg negative (Negative) White Blood Count 22.3 x10^3/uL (4.0-11.0) Red Blood Count 4.12 x10^6/uL (3.50-5.40) Hemoglobin 13.1 g/dL (12.0-15.5) Hematocrit 39.1 % (36.0-47.0) Mean Corpuscular Volume 95 fL (79-100) Mean Corpuscular Hemoglobin 32 pg (25-35) Mean Corpuscular Hemoglobin Concent 34 g/dL (31-37) Red Cell Distribution Width 13.9 % (11.5-14.5) Platelet Count 256 x10^3/uL (140-400) Neutrophils (%) (Auto) 84 % (31-73) Lymphocytes (%) (Auto) 9 % (24-48) Monocytes (%) (Auto) 6 % (0-9) Eosinophils (%) (Auto) 0 % (0-3) Basophils (%) (Auto) 0 % (0-3) Neutrophils # (Auto) 18.8 x10^3uL (1.8-7.7) Lymphocytes # (Auto) 2.1 x10^3/uL (1.0-4.8) Monocytes # (Auto) 1.4 x10^3/uL (0.0-1.1) Eosinophils # (Auto) 0.0 x10^3/uL (0.0-0.7) Basophils # (Auto) 0.1 x10^3/uL (0.0-0.2) Segmented Neutrophils % 86 % (35-66) Lymphocytes % 6 % (24-48) Monocytes % 7 % (0-10) Basophils % 1 % (0-3) Platelet Estimate Adequate (ADEQUATE) Sodium Level 136 mmol/L (136-145) Potassium Level 3.4 mmol/L (3.5-5.1) Chloride Level 100 mmol/L (98-107) Carbon Dioxide Level 24 mmol/L (21-32) Anion Gap 12 (6-14) Blood Urea Nitrogen 13 mg/dL (7-20) Creatinine 0.6 mg/dL (0.6-1.0) Estimated GFR (Cockcroft-Gault) 136.9 BUN/Creatinine Ratio 22 (6-20) Glucose Level 104 mg/dL (70-99) Calcium Level 9.1 mg/dL (8.5-10.1) Total Bilirubin 1.4 mg/dL (0.2-1.0) Aspartate Amino Transf (AST/SGOT) 16 U/L (15-37) Alanine Aminotransferase (ALT/SGPT) 17 U/L (14-59) Alkaline Phosphatase 58 U/L (46-116) Total Protein 8.1 g/dL (6.4-8.2) Albumin 4.2 g/dL (3.4-5.0) Albumin/Globulin Ratio 1.1 (1.0-1.7) Urine Collection Type U cath Urine Color Yellow Urine Clarity Clear Urine pH 7.0 Urine Specific [place] >=1.030 Urine Protein 30 mg/dL (NEG-TRACE) Urine Glucose (UA) Negative mg/dL (NEG) Urine Ketones (Stick) 15 mg/dL (NEG) Urine Blood Small (NEG) Urine Nitrite Negative (NEG) Urine Bilirubin Negative (NEG) Urine Urobilinogen Dipstick 1.0 mg/dL (0.2 mg/dL) Urine Leukocyte Esterase Negative (NEG) Urine RBC 6-10 /HPF (0-2) Urine WBC Occ /HPF (0-4) Urine Squamous Epithelial Cells Few /LPF Urine Bacteria Few /HPF (0-FEW) Urine Mucus Mod /LPF Urine Opiates Screen Pos (NEG) Urine Methadone Screen Neg (NEG) Urine Barbiturates Neg (NEG) Urine Phencyclidine Screen Neg (NEG) Urine Amphetamine/Methamphetamine Neg (NEG) Urine Benzodiazepines Screen Neg (NEG) Urine Cocaine Screen Neg (NEG) Urine Cannabinoids Screen Pos (NEG) Urine Ethyl Alcohol Neg (NEG) Microbiology 11/13/16 Wet Prep - Final, Complete Medications Current Medications Ceftriaxone Sodium (Rocephin Im) 250 mg 1X ONCE IM Last administered on t 17:40; Start 11/13/16 at 17:30; Stop 11/13/16 at 17:31; Status DC Metronidazole (Flagyl) 2,000 mg 1X ONCE PO Last administered on 11/13/16 17: 41; Start 11/13/16 at 17:30; Stop 11/13/16 at 17:31; Status DC Azithromycin (Zithromax) 1,000 mg 1X ONCE PO Last administered on 11/13/16 17 :41; Start 11/13/16 at 17:30; Stop 11/13/16 at 17:31; Status DC Promethazine HCl (Phenergan Im) 25 mg 1X ONCE IM Last administered on 17:40; Start 11/13/16 at 17:30; Stop 11/13/16 at 17:31; Status DC Iohexol (Omnipaque 300 Mg/ml) 75 ml 1X ONCE IV Last administered on 11/13/16 19:21; Start 11/13/16 at 18:00; Stop 11/13/16 at 18:01; Status DC Iohexol (Omnipaque 240 Mg/ml) 30 ml 1X ONCE PO Last administered on 11/13/16 18:00; Start 11/13/16 at 18:00; Stop 11/13/16 at 18:01; Status DC Info (Do NOT chart on this entry -- for MONITORING) 1 each PRN DAILY PRN MC SEE COMMENTS; Start 11/13/16 at 18:00; Stop 11/15/16 at 17:59 Sodium Chloride 1,000 ml @ 1,000 mls/hr 1X ONCE IV Last administered on 18:10; Start 11/13/16 at 18:00; Stop 11/13/16 at 18:59; Status DC Ondansetron HCl (Zofran) 4 mg 1X ONCE IV Last administered on 11/13/16 18:09 ; Start 11/13/16 at 18:00; Stop 11/13/16 at 18:01; Status DC Fentanyl Citrate (Fentanyl 2ml Vial) 50 mcg PRN Q15MIN PRN IV PAIN GREATER THAN 3/10 Last administered on 11/13/16 19:58; Start 11/13/16 at 18:00; Stop at 17:59 Ondansetron HCl (Zofran) 4 mg PRN Q8HRS PRN IV NAUSEA/VOMITING Last administered on 11/13/16 22:33; Start 11/13/16 at 20:00; Stop 11/13/16 at 23:55 ; Status DC Fentanyl Citrate (Fentanyl 2ml Vial) 50 mcg PRN Q1HR PRN IV PAIN Last administered on 11/13/16 21:33; Start 11/13/16 at 20:00; Stop 11/14/16 at 19:59 Sodium Chloride 1,000 ml @ 125 mls/hr Q8H IV Last administered on 11/14/16 06 :18; Start 11/13/16 at 19:50; Stop 11/14/16 at 19:49 Piperacillin Sod/ Tazobactam Sod 3.375 gm/Sodium Chloride 50 ml @ 100 mls/hr Q6HRS IV Last administered on 11/14/16 06:13; Start 11/14/16 at 00:00 Piperacillin Sod/ Tazobactam Sod 3.375 gm/Sodium Chloride 50 ml @ 100 mls/hr 1X ONCE IV Last administered on 11/13/16 20:17; Start 11/13/16 at 20:15; Stop 11/13/16 at 20:44; Status DC Nicotine (Nicoderm Cq 21mg) 1 patch DAILY TD Last administered on 11/14/16 06: 18; Start 11/13/16 at 21:30 Oxycodone HCl (OxyCONTIN) 10 mg 1X ONCE PO Last administered on 11/13/16 22: 14; Start 11/13/16 at 21:45; Stop 11/13/16 at 21:46; Status DC Zolpidem Tartrate (Ambien) 5 mg PRN QHS PRN PO INSOMNIA Last administered on 22:14; Start 11/13/16 at 21:30 Hydromorphone HCl (Dilaudid) 0.5 mg PRN Q4HRS PRN IVP PAIN Last administered on 11/13/16 22:34; Start 11/13/16 at 21:30; Stop 11/13/16 at 23:55; Status DC Hydromorphone HCl (Dilaudid) 0.5 mg PRN Q2HR PRN IVP PAIN Last administered on 11/14/16 09:33; Start 11/14/16 at 00:00 Ondansetron HCl (Zofran) 4 mg PRN Q4HRS PRN IV NAUSEA/VOMITING Last administered on 11/14/16t 02:30; Start 11/14/16 at 00:00; Stop 11/14/16 at 23:59 Prochlorperazine Edisylate (Compazine) 10 mg PRN Q8HRS PRN IM NAUSEA/VOMITING; Start 11/14/16 at 00:00 Active Scripts Active Bactrim Ds Tablet (Sulfamethoxazole/Trimethoprim) 1 Each Tablet 1 Tab PO BID [place] 5-325 Tablet (Acetaminophen/Hydrocodone Bitart) 1 Each Tablet 1-2 Tab PO Q4-6HRS Promethazine-Codeine Syrup (Promethazine Hcl/Codeine) 118 Ml Syrup 5 Ml PO Q4- 6HRS Zithromax (Azithromycin) 250 Mg Tablet 1 Pkg PO UD Proair Hfa Inhaler (Albuterol Sulfate) 8.5 Gm Hfa.aer.ad 1 Puff INH PRN Q6HRS PRN Tessalon Perle (Benzonatate) 100 Mg Capsule 1 Cap PO TID Prednisone 50 Mg Tablet 1 Tab PO DAILY Vitals/I & O Vital Sign - Last 24 Hours 11/13/16 11/13/16 11/13/16 11/13/16 16:40 17:44 18:09 18:48 Temp 99.7 99.7 Pulse 96 96 Resp 18 20 B/P (MAP) 145/85 (105) 145/85 (105) Pulse Ox 99 98 98 98 O2 Delivery Room Air Room Air 11/13/16 11/13/16 11/13/16 11/13/16 19:26 19:53 19:58 20:30 Temp 99.3 99.3 Pulse 88 80 76 Resp 22 20 22 20 B/P (MAP) 158/83 (108) 171/84 (113) 115/77 (90) Pulse Ox 98 98 98 93 O2 Delivery Room Air Room Air Room Air 11/13/16 11/13/16 11/13/16 11/13/16 20:57 21:33 22:03 22:14 Resp 16 16 16 16 Pulse Ox 93 93 93 93 O2 Delivery Room Air 11/13/16 11/13/16 11/13/16 11/13/16 22:34 23:04 23:08 23:13 Temp 99.3 99.3 Pulse 94 Resp 16 16 20 B/P (MAP) 129/83 (98) Pulse Ox 93 93 93 O2 Delivery Room Air Room Air 11/14/16 11/14/16 11/14/16 11/14/16 02:14 02:29 03:10 05:05 Temp 98.4 98.4 Pulse 77 Resp 16 16 18 16 B/P (MAP) 113/70 (84) Pulse Ox 95 93 95 95 O2 Delivery Room Air Room Air Room Air Room Air 11/14/16 11/14/16 11/14/16 11/14/16 05:35 07:00 07:30 07:30 Temp 97.7 97.7 Pulse 80 Resp 16 20 B/P (MAP) 116/69 (85) Pulse Ox 95 93 O2 Delivery Room Air Room Air Room Air 11/14/16 11/14/16 08:00 09:33 O2 Delivery Room Air Room Air Intake and Output 11/13/16 11/13/16 11/14/16 15:00 23:00 07:00 Intake Total 0 ml 0 ml Output Total 600 ml Balance 0 ml -600 ml KAREN BLANDON MD Nov 14, 2016 11:09
[2016-11-14] MEDS: POTASSIUM CHLORIDE 10MEQ 100 ML IV SCH ×3 (11:28→16:45)
[2016-11-14] MEDS ORDERED: PROPOFOL 20 ML IV ONE (11:35)
[2016-11-14] MEDS ORDERED: BUPIVACAINE-EPI 0.5%-1:200000 50 ML VIAL. ONE (11:35)
[2016-11-14] MEDS ORDERED: DEXAMETHASONE SOD PHOS 20 MG/5 ML VIAL. ONE (11:35)
[2016-11-14] MEDS ORDERED: MIDAZOLAM HCL/PF 2 MG/2 ML VIAL. ONE (11:35)
[2016-11-14] MEDS ORDERED: SUCCINYLCHOLINE 200 MG/10 ML VIAL. ONE (11:35)
[2016-11-14] MEDS ORDERED: ROCURONIUM 50 MG/5 ML VIAL. ONE (11:35)
[2016-11-14] MEDS ORDERED: fentaNYL PF VIAL 100 MCG/2 ML VIAL ONE ×2 (11:35→12:39)
[2016-11-14] MEDS ORDERED: ONDANSETRON PF 4 MG/2 ML VIAL. ONE (11:35)
[2016-11-14] MEDS ORDERED: LIDOCAINE 2% PF Vial for OR 5 ML VIAL. ONE (11:35)
[2016-11-14] MEDS ORDERED: LIDOCAINE 1% 1 ML SYRINGE. ONE (11:51)
--- NOTE | 2016-11-14 12:18 | PDOC2 ---
CONSULT Date of Consult Date of Consult DATE: 11/14/16 TIME: 12:11 Reason for Consult Reason for Consult: RLQ abd pain, appendicitis Referring Physician Referring Physician: Ellis Identification/Chief Complaint Chief Complaint RLQ pain Problems: Source Source: Patient History of Present Illness Reason for Visit: 36 yo F with c/o acute onset RLQ pain yesterday morning, 4AM, awoken from sleep. Was seen at [facility], but sent home. Noted worsening abd pain, N/V. Presented to ER and found to have appendicitis. Pt notes persistent pain, despite abx and pain meds. Seen in Pre-op. Appears pleasant and reasonably comfortable. Past Medical History Pulmonary: Bronchitis Musculoskeletal: low back pain Renal/: UTI Past Surgical History Past Surgical History: Social History ALCOHOL: occassional Drugs: Marijuana Current Problem List Problem List Problems Medical Problems: (1) Appendicitis Status: Acute Current Medications Current Medications Current Medications Ceftriaxone Sodium (Rocephin Im) 250 mg 1X ONCE IM Last administered on 17:40; Start 11/13/16 at 17:30; Stop 11/13/16 at 17:31; Status DC Metronidazole (Flagyl) 2,000 mg 1X ONCE PO Last administered on 11/13/16 17: 41; Start 11/13/16 at 17:30; Stop 11/13/16 at 17:31; Status DC Azithromycin (Zithromax) 1,000 mg 1X ONCE PO Last administered on 11/13/16 17 :41; Start 11/13/16 at 17:30; Stop 11/13/16 at 17:31; Status DC Promethazine HCl (Phenergan Im) 25 mg 1X ONCE IM Last administered on 17:40; Start 11/13/16 at 17:30; Stop 11/13/16 at 17:31; Status DC Iohexol (Omnipaque 300 Mg/ml) 75 ml 1X ONCE IV Last administered on 11/13/16 19:21; Start 11/13/16 at 18:00; Stop 11/13/16 at 18:01; Status DC Iohexol (Omnipaque 240 Mg/ml) 30 ml 1X ONCE PO Last administered on 11/13/16 18:00; Start 11/13/16 at 18:00; Stop 11/13/16 at 18:01; Status DC Info (Do NOT chart on this entry -- for MONITORING) 1 each PRN DAILY PRN MC SEE COMMENTS; Start 11/13/16 at 18:00; Stop 11/15/16 at 17:59 Sodium Chloride 1,000 ml @ 1,000 mls/hr 1X ONCE IV Last administered on 18:10; Start 11/13/16 at 18:00; Stop 11/13/16 at 18:59; Status DC Ondansetron HCl (Zofran) 4 mg 1X ONCE IV Last administered on 11/13/16 18:09 ; Start 11/13/16 at 18:00; Stop 11/13/16 at 18:01; Status DC Fentanyl Citrate (Fentanyl 2ml Vial) 50 mcg PRN Q15MIN PRN IV PAIN GREATER THAN 3/10 Last administered on 11/13/16 19:58; Start 11/13/16 at 18:00; Stop at 17:59 Ondansetron HCl (Zofran) 4 mg PRN Q8HRS PRN IV NAUSEA/VOMITING Last administered on 11/13/16 22:33; Start 11/13/16 at 20:00; Stop 11/13/16 at 23:55 ; Status DC Fentanyl Citrate (Fentanyl 2ml Vial) 50 mcg PRN Q1HR PRN IV PAIN Last administered on 11/13/16 21:33; Start 11/13/16 at 20:00; Stop 11/14/16 at 19:59 Sodium Chloride 1,000 ml @ 125 mls/hr Q8H IV Last administered on 11/14/16 06 :18; Start 11/13/16 at 19:50; Stop 11/14/16 at 19:49 Piperacillin Sod/ Tazobactam Sod 3.375 gm/Sodium Chloride 50 ml @ 100 mls/hr Q6HRS IV Last administered on 11/14/16 11:27; Start 11/14/16 at 00:00 Piperacillin Sod/ Tazobactam Sod 3.375 gm/Sodium Chloride 50 ml @ 100 mls/hr 1X ONCE IV Last administered on 11/13/16 20:17; Start 11/13/16 at 20:15; Stop 11/13/16 at 20:44; Status DC Nicotine (Nicoderm Cq 21mg) 1 patch DAILY TD Last administered on 11/14/16 06: 18; Start 11/13/16 at 21:30 Oxycodone HCl (OxyCONTIN) 10 mg 1X ONCE PO Last administered on 11/13/16 22: 14; Start 11/13/16 at 21:45; Stop 11/13/16 at 21:46; Status DC Zolpidem Tartrate (Ambien) 5 mg PRN QHS PRN PO INSOMNIA Last administered on 22:14; Start 11/13/16 at 21:30 Hydromorphone HCl (Dilaudid) 0.5 mg PRN Q4HRS PRN IVP PAIN Last administered on 11/13/16 22:34; Start 11/13/16 at 21:30; Stop 11/13/16 at 23:55; Status DC Hydromorphone HCl (Dilaudid) 0.5 mg PRN Q2HR PRN IVP PAIN Last administered on 11/14/16 11:26; Start 11/14/16 at 00:00 Ondansetron HCl (Zofran) 4 mg PRN Q4HRS PRN IV NAUSEA/VOMITING Last administered on 11/14/16 02:30; Start 11/14/16 at 00:00; Stop 11/14/16 at 23:59 Prochlorperazine Edisylate (Compazine) 10 mg PRN Q8HRS PRN IM NAUSEA/VOMITING; Start 11/14/16 at 00:00 Potassium Chloride 100 ml @ 100 mls/hr Q1H IV ; Start 11/14/16 at 11:30; Stop 11/14/16 at 13:29 Dexamethasone Sodium Phosphate (Decadron) 20 mg STK-MED ONCE .ROUTE ; Start at 11:35; Stop 11/14/16 at 11:36; Status DC Ondansetron HCl (Zofran) 4 mg STK-MED ONCE .ROUTE ; Start 11/14/16 at 11:35; Stop 11/14/16 at 11:36; Status DC Propofol 20 ml @ As Directed STK-MED ONCE IV ; Start 11/14/16 at 11:35; Stop at 11:36; Status DC Lidocaine HCl (Lidocaine Pf 2% Vial) 5 ml STK-MED ONCE .ROUTE ; Start 11/14/16 at 11:35; Stop 11/14/16 at 11:36; Status DC Fentanyl Citrate (Fentanyl 2ml Vial) 100 mcg STK-MED ONCE .ROUTE ; Start at 11:35; Stop 11/14/16 at 11:36; Status DC Midazolam HCl (Versed) 2 mg STK-MED ONCE .ROUTE ; Start 11/14/16 at 11:35; Stop 11/14/16 at 11:36; Status DC Bupivacaine HCl/ Epinephrine Bitart (Marcaine-Epi 0.5%-1:[id number]) 50 ml STK-MED ONCE .ROUTE ; Start 11/14/16 at 11:35; Stop 11/14/16 at 11:36; Status DC Succinylcholine Chloride (Anectine) 200 mg STK-MED ONCE .ROUTE ; Start 11/14/16 at 11:35; Stop 11/14/16 at 11:36; Status DC Rocuronium [place]ford (Zemuron) 50 mg STK-MED ONCE .ROUTE ; Start 11/14/16 at 11:35 ; Stop 11/14/16 at 11:36; Status DC Lidocaine HCl 1 ml STK-MED ONCE .ROUTE ; Start 11/14/16 at 11:51; Stop 11/14/16 at 11:52; Status DC Active Scripts Active Bactrim Ds Tablet (Sulfamethoxazole/Trimethoprim) 1 Each Tablet 1 Tab PO BID [place] 5-325 Tablet (Acetaminophen/Hydrocodone Bitart) 1 Each Tablet 1-2 Tab PO Q4-6HRS Promethazine-Codeine Syrup (Promethazine Hcl/Codeine) 118 Ml Syrup 5 Ml PO Q4- 6HRS Zithromax (Azithromycin) 250 Mg Tablet 1 Pkg PO UD Proair Hfa Inhaler (Albuterol Sulfate) 8.5 Gm Hfa.aer.ad 1 Puff INH PRN Q6HRS PRN Tessalon Perle (Benzonatate) 100 Mg Capsule 1 Cap PO TID Prednisone 50 Mg Tablet 1 Tab PO DAILY Allergies Allergies: Coded Allergies: No Known Drug Allergies (Unverified , 01/11/14) ROS Gastrointestinal: Yes Nausea, Yes Vomiting, Yes Abdominal Pain Physical Exam General: Alert, Oriented X3, Cooperative, No acute distress HEENT: Atraumatic, EOMI, Mucous membr. moist/pink Lungs: Normal air movement Abdomen: Soft, Other (TTP diffusely, but especially RLQ) Extremities: No clubbing, No cyanosis, No edema Skin: No rashes, No breakdown Neuro: Normal speech, Strength at 5/5 X4 ext Psych/Mental Status: Mental status NL, Mood NL MUSCULOSKELETAL: No muscular tenderness noted, Full range of motion without pain Vitals VITALS Vital Signs Date Time Temp Pulse Resp B/P (MAP) Pulse Ox O2 Delivery O2 Flow Rate FiO2 11/14/16 11:33 Room Air 11/14/16 11:13 97.8 89 20 123/81 100 97.8 Labs Labs Laboratory Tests Test 11/13/16 16:26 11/13/16 16:59 11/13/16 17:15 Bedside Urine HCG, Qualitative Hcg negative (Negative) White Blood Count 22.3 x10^3/uL (4.0-11.0) Red Blood Count 4.12 x10^6/uL (3.50-5.40) Hemoglobin 13.1 g/dL (12.0-15.5) Hematocrit 39.1 % (36.0-47.0) Mean Corpuscular Volume 95 fL (79-100) Mean Corpuscular Hemoglobin 32 pg (25-35) Mean Corpuscular Hemoglobin Concent 34 g/dL (31-37) Red Cell Distribution Width 13.9 % (11.5-14.5) Platelet Count 256 x10^3/uL (140-400) Neutrophils (%) (Auto) 84 % (31-73) Lymphocytes (%) (Auto) 9 % (24-48) Monocytes (%) (Auto) 6 % (0-9) Eosinophils (%) (Auto) 0 % (0-3) Basophils (%) (Auto) 0 % (0-3) Neutrophils # (Auto) 18.8 x10^3uL (1.8-7.7) Lymphocytes # (Auto) 2.1 x10^3/uL (1.0-4.8) Monocytes # (Auto) 1.4 x10^3/uL (0.0-1.1) Eosinophils # (Auto) 0.0 x10^3/uL (0.0-0.7) Basophils # (Auto) 0.1 x10^3/uL (0.0-0.2) Segmented Neutrophils % 86 % (35-66) Lymphocytes % 6 % (24-48) Monocytes % 7 % (0-10) Basophils % 1 % (0-3) Platelet Estimate Adequate (ADEQUATE) Sodium Level 136 mmol/L (136-145) Potassium Level 3.4 mmol/L (3.5-5.1) Chloride Level 100 mmol/L (98-107) Carbon Dioxide Level 24 mmol/L (21-32) Anion Gap 12 (6-14) Blood Urea Nitrogen 13 mg/dL (7-20) Creatinine 0.6 mg/dL (0.6-1.0) Estimated GFR (Cockcroft-Gault) 136.9 BUN/Creatinine Ratio 22 (6-20) Glucose Level 104 mg/dL (70-99) Calcium Level 9.1 mg/dL (8.5-10.1) Total Bilirubin 1.4 mg/dL (0.2-1.0) Aspartate Amino Transf (AST/SGOT) 16 U/L (15-37) Alanine Aminotransferase (ALT/SGPT) 17 U/L (14-59) Alkaline Phosphatase 58 U/L (46-116) Total Protein 8.1 g/dL (6.4-8.2) Albumin 4.2 g/dL (3.4-5.0) Albumin/Globulin Ratio 1.1 (1.0-1.7) Urine Collection Type U cath Urine Color Yellow Urine Clarity Clear Urine pH 7.0 Urine Specific [place] >=1.030 Urine Protein 30 mg/dL (NEG-TRACE) Urine Glucose (UA) Negative mg/dL (NEG) Urine Ketones (Stick) 15 mg/dL (NEG) Urine Blood Small (NEG) Urine Nitrite Negative (NEG) Urine Bilirubin Negative (NEG) Urine Urobilinogen Dipstick 1.0 mg/dL (0.2 mg/dL) Urine Leukocyte Esterase Negative (NEG) Urine RBC 6-10 /HPF (0-2) Urine WBC Occ /HPF (0-4) Urine Squamous Epithelial Cells Few /LPF Urine Bacteria Few /HPF (0-FEW) Urine Mucus Mod /LPF Urine Opiates Screen Pos (NEG) Urine Methadone Screen Neg (NEG) Urine Barbiturates Neg (NEG) Urine Phencyclidine Screen Neg (NEG) Urine Amphetamine/Methamphetamine Neg (NEG) Urine Benzodiazepines Screen Neg (NEG) Urine Cocaine Screen Neg (NEG) Urine Cannabinoids Screen Pos (NEG) Urine Ethyl Alcohol Neg (NEG) Laboratory Tests Test 11/13/16 16:26 11/13/16 16:59 11/13/16 17:15 Bedside Urine HCG, Qualitative Hcg negative (Negative) White Blood Count 22.3 x10^3/uL (4.0-11.0) Red Blood Count 4.12 x10^6/uL (3.50-5.40) Hemoglobin 13.1 g/dL (12.0-15.5) Hematocrit 39.1 % (36.0-47.0) Mean Corpuscular Volume 95 fL (79-100) Mean Corpuscular Hemoglobin 32 pg (25-35) Mean Corpuscular Hemoglobin Concent 34 g/dL (31-37) Red Cell Distribution Width 13.9 % (11.5-14.5) Platelet Count 256 x10^3/uL (140-400) Neutrophils (%) (Auto) 84 % (31-73) Lymphocytes (%) (Auto) 9 % (24-48) Monocytes (%) (Auto) 6 % (0-9) Eosinophils (%) (Auto) 0 % (0-3) Basophils (%) (Auto) 0 % (0-3) Neutrophils # (Auto) 18.8 x10^3uL (1.8-7.7) Lymphocytes # (Auto) 2.1 x10^3/uL (1.0-4.8) Monocytes # (Auto) 1.4 x10^3/uL (0.0-1.1) Eosinophils # (Auto) 0.0 x10^3/uL (0.0-0.7) Basophils # (Auto) 0.1 x10^3/uL (0.0-0.2) Segmented Neutrophils % 86 % (35-66) Lymphocytes % 6 % (24-48) Monocytes % 7 % (0-10) Basophils % 1 % (0-3) Platelet Estimate Adequate (ADEQUATE) Sodium Level 136 mmol/L (136-145) Potassium Level 3.4 mmol/L (3.5-5.1) Chloride Level 100 mmol/L (98-107) Carbon Dioxide Level 24 mmol/L (21-32) Anion Gap 12 (6-14) Blood Urea Nitrogen 13 mg/dL (7-20) Creatinine 0.6 mg/dL (0.6-1.0) Estimated GFR (Cockcroft-Gault) 136.9 BUN/Creatinine Ratio 22 (6-20) Glucose Level 104 mg/dL (70-99) Calcium Level 9.1 mg/dL (8.5-10.1) Total Bilirubin 1.4 mg/dL (0.2-1.0) Aspartate Amino Transf (AST/SGOT) 16 U/L (15-37) Alanine Aminotransferase (ALT/SGPT) 17 U/L (14-59) Alkaline Phosphatase 58 U/L (46-116) Total Protein 8.1 g/dL (6.4-8.2) Albumin 4.2 g/dL (3.4-5.0) Albumin/Globulin Ratio 1.1 (1.0-1.7) Urine Collection Type U cath Urine Color Yellow Urine Clarity Clear Urine pH 7.0 Urine Specific [place] >=1.030 Urine Protein 30 mg/dL (NEG-TRACE) Urine Glucose (UA) Negative mg/dL (NEG) Urine Ketones (Stick) 15 mg/dL (NEG) Urine Blood Small (NEG) Urine Nitrite Negative (NEG) Urine Bilirubin Negative (NEG) Urine Urobilinogen Dipstick 1.0 mg/dL (0.2 mg/dL) Urine Leukocyte Esterase Negative (NEG) Urine RBC 6-10 /HPF (0-2) Urine WBC Occ /HPF (0-4) Urine Squamous Epithelial Cells Few /LPF Urine Bacteria Few /HPF (0-FEW) Urine Mucus Mod /LPF Urine Opiates Screen Pos (NEG) Urine Methadone Screen Neg (NEG) Urine Barbiturates Neg (NEG) Urine Phencyclidine Screen Neg (NEG) Urine Amphetamine/Methamphetamine Neg (NEG) Urine Benzodiazepines Screen Neg (NEG) Urine Cocaine Screen Neg (NEG) Urine Cannabinoids Screen Pos (NEG) Urine Ethyl Alcohol Neg (NEG) Images Images CT c/w appendicitis Assessment/Plan Assessment/Plan Appendicitis Pt started on IV abx, VSS TO OR for lap vs open appendectomy. Given elevated WBC on presentation, significant risk of perforation R/B/A d/w pt, she appears to understand, her questions are answered and she agrees to proceed. Thanks for consult! PHIL OVIEDO MD Nov 14, 2016 12:18
[2016-11-14] MEDS ORDERED: SEVOFLURANE 31 TO 60 MINUTES. IH ONE (12:50)
[2016-11-14] MEDS ORDERED: GLYCOPYRROLATE 1 MG/5 ML VIAL. ONE (13:00)
[2016-11-14] MEDS ORDERED: KETOROLAC 30 MG/ML INJ FOR OR. INJ ONE (13:00)
[2016-11-14] MEDS ORDERED: NEOSTIGMINE METHYLSULFATE 5 MG/5 ML SYRINGE. ONE (13:00)
[2016-11-14] MEDS ORDERED: MORPHINE SULFATE 2 MG/ML DISP.SYRIN. IV PRN ×2 (13:15→13:45)
[2016-11-14] MEDS ORDERED: 0.9 % SODIUM CHLORIDE 10 ML DISP.SYRIN. IV PRN (13:15)
[2016-11-14] MEDS ORDERED: ONDANSETRON PF 4 MG/2 ML VIAL. IV PRN ×2 (13:15)
[2016-11-14] MEDS: fentaNYL PF VIAL 100 MCG/2 ML VIAL IV PRN ×4 (13:30→14:08)
[2016-11-14] MEDS ORDERED: IV RINGERS,LACTATED 1000ML 1,000 ML IV SCH (13:30)
[2016-11-14] MEDS ORDERED: LIDOCAINE 1% 1 ML SYRINGE. ID PRN (13:45)
[2016-11-14] MEDS ORDERED: fentaNYL PF VIAL 100 MCG/2 ML VIAL IV PRN (13:45)
[2016-11-14] MEDS ORDERED: HYDROmorphone 2 MG/ML VIAL IV PRN (13:45)
[2016-11-14] MEDS ORDERED: PROCHLORPERAZINE 10 MG/2 ML VIAL. IV PRN (13:45)
[2016-11-14] MEDS: IV RINGERS,LACTATED 1000ML 1,000 ML IV SCH ×2 (14:30→22:50)
[2016-11-14] MEDS: HYDROcodone/APAP 5/325MG 1 TAB TABLET PO PRN ×2 (15:53→20:41)
[2016-11-14] MEDS: ENOXAPARIN 40 MG/0.4 ML SYRINGE. SQ SCH (15:56)
--- NOTE | 2016-11-14 17:45 | PDOC ---
BRIEF OPERATIVE NOTE Pre-Op Diagnosis Appendicitis Post-Op Diagnosis Perforated appendicitis Procedure Performed Laparoscopic appendectomy Surgeon Tristan Oviedo Anesthesia Type: General, Local Blood Loss 20 Specimens Obtained appendix Findings Localized peritonitis, perforated appendicitis. Complications none Additional Remarks Indication: 36 yo F presents with 1 day history of RLQ abdominal pain. Imaging is concerning for appendicitis. Elevated WBC concerning for perforation. Patient admitted and started on IV antibiotics. Patient is to be taken to the OR for laparoscopic versus open appendectomy. The risks, benefits and alternatives are discussed with the patient. Risks, including, but not limited to: bleeding, infection and damage to surrounding structures. Patient appears to understand and agrees to proceed. Procedure: After obtaining informed consent, patient was taken to the operating room and induced under GETA. Patient was prepped and drapped in the usual fashion over the abdominal wall. 0.5% Marcaine with epinephrine was injected into the left lower quadrant. An incision was made using 15 blade scapel. A 5 mm non bladed trocar was introduced under laparoscopic guidance. Pneumoperitoneum was thus established. Additional 12 port was placed in the supraumbelical area and a 5 mm port was placed in the suprapubic area. The abdominal cavity was explored. The liver was normal in appearance. The visceral was normal in appearance. There was no evidence of trocar injury. The appendix was identified coming off the cecum at the confluence of the taenia. It was noted to be enlarged, adherent to surrouding bowel and had a large amount of infection and purulence causing local peritonitis. It was bluntly dissected off the surrounding viscera. A defect was created in the mesoappendix. A general load GREGG was taken across the base of the appendix. The mesoappendix was divide by a vascular load GREGG. Additional hemostasis was obtained using clips. The appendix was brought out through the umbelical port and sent to pathology using an Endocatch bag. The abdominal cavity was copiously irrigated. All port were removed. There was no evidence of port site bleeding. The fascia defect in the supraumbelical area was reapproximated using 0 vicryl and a PMI device. All skin incisions were reapproximated using 4 0 monocryl in a subcuticular fashion. Sterile dressings were applied. All counts were correct. There were no immediate complications. TRISTAN OVIEDO MD Nov 14, 2016 17:45
[2016-11-14] MEDS: KETOROLAC TROMETHAMINE 30 MG/ML INJ. IV PRN (17:49)
[2016-11-14] MEDS: ZOLPIDEM 5 MG TABLET. PO PRN (20:41)
[2016-11-14] MEDS: DOCUSATE SODIUM 100 MG CAPSULE. PO SCH (20:41)
[2016-11-15] MEDS: HYDROcodone/APAP 5/325MG 1 TAB TABLET PO PRN ×2 (01:10→05:25)
[2016-11-15] MEDS: HYDROmorphone 2 MG/ML VIAL IVP PRN ×10 (01:10→21:47)
[2016-11-15] MEDS: BENZOCAINE/MENTHOL LOZENGE. PO PRN ×3 (03:33→12:02)
[2016-11-15] MEDS: PIPERACILLIN/TAZOBACTAM 3.375 GM in IV NORMAL SALINE 50ML 50 ML IV SCH ×3 (05:29→17:57)
[2016-11-15] MEDS ORDERED: IV RINGERS,LACTATED 1000ML 1,000 ML IV SCH ×2 (06:00)
[2016-11-15 06:42] LABS: BASO % 0 % (0-3); EOS % 0 % (0-3); HEMOGLOBIN 10.5 g/dL (12.0-15.5); LYMPH # 4.1 x10^3/uL (1.0-4.8); LYMPH % 26 % (24-48); MEAN CORPUSCULAR HEMOGLOBIN 32 pg (25-35); MEAN CORPUSCULAR HGB CONC 34 g/dL (31-37); MEAN CORPUSCULAR VOLUME 95 fL (79-100); MONO % 8 % (0-9); NEUT % 66 % (31-73); PLATELET COUNT 210 x10^3/uL (140-400); RED BLOOD COUNT 3.28 x10^6/uL (3.50-5.40); RED CELL DISTRIBUTION WIDTH 14.1 % (11.5-14.5); WHITE BLOOD COUNT 15.9 x10^3/uL (4.0-11.0)
[2016-11-15 07:00] VITALS: BP 122/86
[2016-11-15 07:20] LABS: CALCIUM 8.2 mg/dL (8.5-10.1); CREATININE 0.6 mg/dL (0.6-1.0); GFR 136.9; POTASSIUM 3.9 mmol/L (3.5-5.1)
[2016-11-15] MEDS: KETOROLAC TROMETHAMINE 30 MG/ML INJ. IV PRN (07:37)
--- NOTE | 2016-11-15 09:27 | PDOC ---
PROGRESS NOTES Chief Complaint Chief Complaint Acute appendicitis. w. peritonitis s/p surgery Sepsis obesity BMI 35 History of Present Illness History of Present Illness appendectomy yesterday peritonitis noted will continue Zosyn., vitals better, pain persists, will increase pain doses Vitals Vitals Vital Signs Date Time Temp Pulse Resp B/P (MAP) Pulse Ox O2 Delivery O2 Flow Rate FiO2 11/15/16 07:39 Room Air 11/15/16 07:00 98.8 74 18 122/86 (98) 95 98.8 11/14/16 20:00 10.0 Physical Exam General: Alert, Oriented X3, Cooperative, No acute distress Heart: Regular rate, Normal S1, No murmurs Lungs: Wheezing Abdomen: Soft, Other (TTP diffusely, but especially RLQ) Extremities: No clubbing, No cyanosis, No edema Skin: No rashes, No breakdown Labs LABS Laboratory Tests Test 11/15/16 05:24 White Blood Count 15.9 x10^3/uL (4.0-11.0) Red Blood Count 3.28 x10^6/uL (3.50-5.40) Hemoglobin 10.5 g/dL (12.0-15.5) Hematocrit 31.0 % (36.0-47.0) Mean Corpuscular Volume 95 fL (79-100) Mean Corpuscular Hemoglobin 32 pg (25-35) Mean Corpuscular Hemoglobin Concent 34 g/dL (31-37) Red Cell Distribution Width 14.1 % (11.5-14.5) Platelet Count 210 x10^3/uL (140-400) Neutrophils (%) (Auto) 66 % (31-73) Lymphocytes (%) (Auto) 26 % (24-48) Monocytes (%) (Auto) 8 % (0-9) Eosinophils (%) (Auto) 0 % (0-3) Basophils (%) (Auto) 0 % (0-3) Neutrophils # (Auto) 10.4 x10^3uL (1.8-7.7) Lymphocytes # (Auto) 4.1 x10^3/uL (1.0-4.8) Monocytes # (Auto) 1.3 x10^3/uL (0.0-1.1) Eosinophils # (Auto) 0.0 x10^3/uL (0.0-0.7) Basophils # (Auto) 0.0 x10^3/uL (0.0-0.2) Sodium Level 139 mmol/L (136-145) Potassium Level 3.9 mmol/L (3.5-5.1) Chloride Level 106 mmol/L (98-107) Carbon Dioxide Level 27 mmol/L (21-32) Anion Gap 6 (6-14) Blood Urea Nitrogen 15 mg/dL (7-20) Creatinine 0.6 mg/dL (0.6-1.0) Estimated GFR (Cockcroft-Gault) 136.9 Glucose Level 113 mg/dL (70-99) Calcium Level 8.2 mg/dL (8.5-10.1) Review of Systems Review of Systems no vomiting nausea and pain could not sleep family stress with kids today, emotional and tired Assessment and Plan Assessmemt and Plan Problems Medical Problems: (1) Appendicitis Status: Acute Problems: Comment Review of Relevant I have reviewed the following items kurtis (where applicable) has been applied. Labs Laboratory Tests Test 11/13/16 16:26 11/13/16 16:59 11/13/16 17:15 11/15/16 05:24 Bedside Urine HCG, Qualitative Hcg negative (Negative) White Blood Count 22.3 x10^3/uL (4.0-11.0) 15.9 x10^3/uL (4.0-11.0) Red Blood Count 4.12 x10^6/uL (3.50-5.40) 3.28 x10^6/uL (3.50-5.40) Hemoglobin 13.1 g/dL (12.0-15.5) 10.5 g/dL (12.0-15.5) Hematocrit 39.1 % (36.0-47.0) 31.0 % (36.0-47.0) Mean Corpuscular Volume 95 fL (79-100) 95 fL (79-100) Mean Corpuscular Hemoglobin 32 pg (25-35) 32 pg (25-35) Mean Corpuscular Hemoglobin Concent 34 g/dL (31-37) 34 g/dL (31-37) Red Cell Distribution Width 13.9 % (11.5-14.5) 14.1 % (11.5-14.5) Platelet Count 256 x10^3/uL (140-400) 210 x10^3/uL (140-400) Neutrophils (%) (Auto) 84 % (31-73) 66 % (31-73) Lymphocytes (%) (Auto) 9 % (24-48) 26 % (24-48) Monocytes (%) (Auto) 6 % (0-9) 8 % (0-9) Eosinophils (%) (Auto) 0 % (0-3) 0 % (0-3) Basophils (%) (Auto) 0 % (0-3) 0 % (0-3) Neutrophils # (Auto) 18.8 x10^3uL (1.8-7.7) 10.4 x10^3uL (1.8-7.7) Lymphocytes # (Auto) 2.1 x10^3/uL (1.0-4.8) 4.1 x10^3/uL (1.0-4.8) Monocytes # (Auto) 1.4 x10^3/uL (0.0-1.1) 1.3 x10^3/uL (0.0-1.1) Eosinophils # (Auto) 0.0 x10^3/uL (0.0-0.7) 0.0 x10^3/uL (0.0-0.7) Basophils # (Auto) 0.1 x10^3/uL (0.0-0.2) 0.0 x10^3/uL (0.0-0.2) Segmented Neutrophils % 86 % (35-66) Lymphocytes % 6 % (24-48) Monocytes % 7 % (0-10) Basophils % 1 % (0-3) Platelet Estimate Adequate (ADEQUATE) Sodium Level 136 mmol/L (136-145) 139 mmol/L (136-145) Potassium Level 3.4 mmol/L (3.5-5.1) 3.9 mmol/L (3.5-5.1) Chloride Level 100 mmol/L (98-107) 106 mmol/L (98-107) Carbon Dioxide Level 24 mmol/L (21-32) 27 mmol/L (21-32) Anion Gap 12 (6-14) 6 (6-14) Blood Urea Nitrogen 13 mg/dL (7-20) 15 mg/dL (7-20) Creatinine 0.6 mg/dL (0.6-1.0) 0.6 mg/dL (0.6-1.0) Estimated GFR (Cockcroft-Gault) 136.9 136.9 BUN/Creatinine Ratio 22 (6-20) Glucose Level 104 mg/dL (70-99) 113 mg/dL (70-99) Calcium Level 9.1 mg/dL (8.5-10.1) 8.2 mg/dL (8.5-10.1) Total Bilirubin 1.4 mg/dL (0.2-1.0) Aspartate Amino Transf (AST/SGOT) 16 U/L (15-37) Alanine Aminotransferase (ALT/SGPT) 17 U/L (14-59) Alkaline Phosphatase 58 U/L (46-116) Total Protein 8.1 g/dL (6.4-8.2) Albumin 4.2 g/dL (3.4-5.0) Albumin/Globulin Ratio 1.1 (1.0-1.7) Urine Collection Type U cath Urine Color Yellow Urine Clarity Clear Urine pH 7.0 Urine Specific [place] >=1.030 Urine Protein 30 mg/dL (NEG-TRACE) Urine Glucose (UA) Negative mg/dL (NEG) Urine Ketones (Stick) 15 mg/dL (NEG) Urine Blood Small (NEG) Urine Nitrite Negative (NEG) Urine Bilirubin Negative (NEG) Urine Urobilinogen Dipstick 1.0 mg/dL (0.2 mg/dL) Urine Leukocyte Esterase Negative (NEG) Urine RBC 6-10 /HPF (0-2) Urine WBC Occ /HPF (0-4) Urine Squamous Epithelial Cells Few /LPF Urine Bacteria Few /HPF (0-FEW) Urine Mucus Mod /LPF Urine Opiates Screen Pos (NEG) Urine Methadone Screen Neg (NEG) Urine Barbiturates Neg (NEG) Urine Phencyclidine Screen Neg (NEG) Urine Amphetamine/Methamphetamine Neg (NEG) Urine Benzodiazepines Screen Neg (NEG) Urine Cocaine Screen Neg (NEG) Urine Cannabinoids Screen Pos (NEG) Urine Ethyl Alcohol Neg (NEG) Laboratory Tests Test 11/15/16 05:24 White Blood Count 15.9 x10^3/uL (4.0-11.0) Red Blood Count 3.28 x10^6/uL (3.50-5.40) Hemoglobin 10.5 g/dL (12.0-15.5) Hematocrit 31.0 % (36.0-47.0) Mean Corpuscular Volume 95 fL (79-100) Mean Corpuscular Hemoglobin 32 pg (25-35) Mean Corpuscular Hemoglobin Concent 34 g/dL (31-37) Red Cell Distribution Width 14.1 % (11.5-14.5) Platelet Count 210 x10^3/uL (140-400) Neutrophils (%) (Auto) 66 % (31-73) Lymphocytes (%) (Auto) 26 % (24-48) Monocytes (%) (Auto) 8 % (0-9) Eosinophils (%) (Auto) 0 % (0-3) Basophils (%) (Auto) 0 % (0-3) Neutrophils # (Auto) 10.4 x10^3uL (1.8-7.7) Lymphocytes # (Auto) 4.1 x10^3/uL (1.0-4.8) Monocytes # (Auto) 1.3 x10^3/uL (0.0-1.1) Eosinophils # (Auto) 0.0 x10^3/uL (0.0-0.7) Basophils # (Auto) 0.0 x10^3/uL (0.0-0.2) Sodium Level 139 mmol/L (136-145) Potassium Level 3.9 mmol/L (3.5-5.1) Chloride Level 106 mmol/L (98-107) Carbon Dioxide Level 27 mmol/L (21-32) Anion Gap 6 (6-14) Blood Urea Nitrogen 15 mg/dL (7-20) Creatinine 0.6 mg/dL (0.6-1.0) Estimated GFR (Cockcroft-Gault) 136.9 Glucose Level 113 mg/dL (70-99) Calcium Level 8.2 mg/dL (8.5-10.1) Microbiology 11/13/16 Wet Prep - Final, Complete Medications Current Medications Ceftriaxone Sodium (Rocephin Im) 250 mg 1X ONCE IM Last administered on 17:40; Start 11/13/16 at 17:30; Stop 11/13/16 at 17:31; Status DC Metronidazole (Flagyl) 2,000 mg 1X ONCE PO Last administered on 11/13/16 17: 41; Start 11/13/16 at 17:30; Stop 11/13/16 at 17:31; Status DC Azithromycin (Zithromax) 1,000 mg 1X ONCE PO Last administered on 11/13/16 17 :41; Start 11/13/16 at 17:30; Stop 11/13/16 at 17:31; Status DC Promethazine HCl (Phenergan Im) 25 mg 1X ONCE IM Last administered on 17:40; Start 11/13/16 at 17:30; Stop 11/13/16 at 17:31; Status DC Iohexol (Omnipaque 300 Mg/ml) 75 ml 1X ONCE IV Last administered on 11/13/16 19:21; Start 11/13/16 at 18:00; Stop 11/13/16 at 18:01; Status DC Iohexol (Omnipaque 240 Mg/ml) 30 ml 1X ONCE PO Last administered on 11/13/16 18:00; Start 11/13/16 at 18:00; Stop 11/13/16 at 18:01; Status DC Info (Do NOT chart on this entry -- for MONITORING) 1 each PRN DAILY PRN MC SEE COMMENTS; Start 11/13/16 at 18:00; Stop 11/15/16 at 17:59 Sodium Chloride 1,000 ml @ 1,000 mls/hr 1X ONCE IV Last administered on 18:10; Start 11/13/16 at 18:00; Stop 11/13/16 at 18:59; Status DC Ondansetron HCl (Zofran) 4 mg 1X ONCE IV Last administered on 11/13/16 18:09 ; Start 11/13/16 at 18:00; Stop 11/13/16 at 18:01; Status DC Fentanyl Citrate (Fentanyl 2ml Vial) 50 mcg PRN Q15MIN PRN IV PAIN GREATER THAN 3/10 Last administered on 11/13/16 19:58; Start 11/13/16 at 18:00; Stop at 13:16; Status DC Ondansetron HCl (Zofran) 4 mg PRN Q8HRS PRN IV NAUSEA/VOMITING Last administered on 11/13/16 22:33; Start 11/13/16 at 20:00; Stop 11/13/16 at 23:55 ; Status DC Fentanyl Citrate (Fentanyl 2ml Vial) 50 mcg PRN Q1HR PRN IV PAIN Last administered on 11/13/16 21:33; Start 11/13/16 at 20:00; Stop 11/14/16 at 19:59 ; Status DC Sodium Chloride 1,000 ml @ 125 mls/hr Q8H IV Last administered on 11/14/16 06 :18; Start 11/13/16 at 19:50; Stop 11/14/16 at 13:19; Status DC Piperacillin Sod/ Tazobactam Sod 3.375 gm/Sodium Chloride 50 ml @ 100 mls/hr Q6HRS IV Last administered on 11/15/16 05:29; Start 11/14/16 at 00:00 Piperacillin Sod/ Tazobactam Sod 3.375 gm/Sodium Chloride 50 ml @ 100 mls/hr 1X ONCE IV Last administered on 11/13/16 20:17; Start 11/13/16 at 20:15; Stop 11/13/16 at 20:44; Status DC Nicotine (Nicoderm Cq 21mg) 1 patch DAILY TD Last administered on 11/14/16 06: 18; Start 11/13/16 at 21:30 Oxycodone HCl (OxyCONTIN) 10 mg 1X ONCE PO Last administered on 11/13/16 22: 14; Start 11/13/16 at 21:45; Stop 11/13/16 at 21:46; Status DC Zolpidem Tartrate (Ambien) 5 mg PRN QHS PRN PO INSOMNIA Last administered on 22:14; Start 11/13/16 at 21:30; Stop 11/14/16 at 20:06; Status DC Hydromorphone HCl (Dilaudid) 0.5 mg PRN Q4HRS PRN IVP PAIN Last administered on 11/13/16 22:34; Start 11/13/16 at 21:30; Stop 11/13/16 at 23:55; Status DC Hydromorphone HCl (Dilaudid) 0.5 mg PRN Q2HR PRN IVP PAIN Last administered on 11/15/16 07:31; Start 11/14/16 at 00:00; Stop 11/15/16 at 08:39; Status DC Ondansetron HCl (Zofran) 4 mg PRN Q4HRS PRN IV NAUSEA/VOMITING Last administered on 11/14/16t 02:30; Start 11/14/16 at 00:00; Stop 11/14/16 at 13:13 ; Status DC Prochlorperazine Edisylate (Compazine) 10 mg PRN Q8HRS PRN IM NAUSEA/VOMITING; Start 11/14/16 at 00:00 Potassium Chloride 100 ml @ 100 mls/hr Q1H IV Last administered on 11/14/16t 16:45; Start 11/14/16 at 11:30; Stop 11/14/16 at 13:29; Status DC Dexamethasone Sodium Phosphate (Decadron) 20 mg STK-MED ONCE .ROUTE ; Start at 11:35; Stop 11/14/16 at 11:36; Status DC Ondansetron HCl (Zofran) 4 mg STK-MED ONCE .ROUTE ; Start 11/14/16 at 11:35; Stop 11/14/16 at 11:36; Status DC Propofol 20 ml @ As Directed STK-MED ONCE IV ; Start 11/14/16 at 11:35; Stop at 11:36; Status DC Lidocaine HCl (Lidocaine Pf 2% Vial) 5 ml STK-MED ONCE .ROUTE ; Start 11/14/16 at 11:35; Stop 11/14/16 at 11:36; Status DC Fentanyl Citrate (Fentanyl 2ml Vial) 100 mcg STK-MED ONCE .ROUTE ; Start at 11:35; Stop 11/14/16 at 11:36; Status DC Midazolam HCl (Versed) 2 mg STK-MED ONCE .ROUTE ; Start 11/14/16 at 11:35; Stop 11/14/16 at 11:36; Status DC Bupivacaine HCl/ Epinephrine Bitart (Marcaine-Epi 0.5%-[id number]) 50 ml STK-MED ONCE .ROUTE ; Start 11/14/16 at 11:35; Stop 11/14/16 at 11:36; Status DC Succinylcholine Chloride (Anectine) 200 mg STK-MED ONCE .ROUTE ; Start 11/14/16 at 11:35; Stop 11/14/16 at 11:36; Status DC Rocuronium Cyclone (Zemuron) 50 mg STK-MED ONCE .ROUTE ; Start 11/14/16 at 11:35 ; Stop 11/14/16 at 11:36; Status DC Lidocaine HCl 1 ml STK-MED ONCE .ROUTE ; Start 11/14/16 at 11:51; Stop 11/14/16 at 11:52; Status DC Ringer's Solution 1,000 ml @ 125 mls/hr Q8H IV Last administered on 11/14/16 12:00; Start 11/15/16 at 06:00; Stop 11/15/16 at 06:00; Status DC Ringer's Solution 1,000 ml @ 125 mls/hr Q8H IV ; Start 11/15/16 at 06:00; Stop 11/15/16 at 11:59; Status Cancel Fentanyl Citrate (Fentanyl 2ml Vial) 100 mcg STK-MED ONCE .ROUTE ; Start at 12:39; Stop 11/14/16 at 12:40; Status DC Sevoflurane (Ultane) 30 ml STK-MED ONCE IH ; Start 11/14/16 at 12:50; Stop 11/14 at 12:51; Status DC Ketorolac Tromethamine (Toradol For Or Only) 30 mg STK-MED ONCE INJ ; Start at 13:00; Stop 11/14/16 at 13:01; Status DC Glycopyrrolate (Robinul) 1 mg STK-MED ONCE .ROUTE ; Start 11/14/16 at 13:00; Stop 11/14/16 at 13:01; Status DC Neostigmine Methylsulfate 5 mg STK-MED ONCE .ROUTE ; Start 11/14/16 at 13:00; Stop 11/14/16 at 13:01; Status DC Enoxaparin Sodium (Lovenox 40mg Syringe) 40 mg Q24H SQ Last administered on 15:56; Start 11/14/16 at 16:00 Sodium Chloride (Normal Saline Flush) 3 ml QSHIFT PRN IV AFTER MEDS AND BLOOD DRAWS; Start 11/14/16 at 13:15 Ringer's Solution 1,000 ml @ 100 mls/hr Q10H IV Last administered on 22:50; Start 11/14/16 at 14:00 Acetaminophen/ Hydrocodone Bitart (Lortab 5/325) 1 tab PRN Q4HRS PRN PO MILD PAIN Last administered on 11/15/16 05:25; Start 11/14/16 at 13:15; Stop at 08:39; Status DC Ketorolac Tromethamine (Toradol) 30 mg PRN Q6HRS PRN IV PAIN Last administered on 11/15/16 07:37; Start 11/14/16 at 13:15; Stop 11/19/16 at 13:14 Morphine Sulfate 1 mg PRN Q1HR PRN IV PAIN; Start 11/14/16 at 13:15 Docusate Sodium (Colace) 100 mg BID PO Last administered on 11/14/16 20:41; Start 11/14/16 at 21:00 Ondansetron HCl (Zofran) 4 mg PRN Q6HRS PRN IV NAUESA, 1ST CHOICE; Start at 13:15 Fentanyl Citrate (Fentanyl 2ml Vial) 25 mcg PRN Q5MIN PRN IV MILD PAIN; Start 11/14/16 at 13:45; Stop 11/14/16 at 23:01; Status DC Fentanyl Citrate (Fentanyl 2ml Vial) 50 mcg PRN Q5MIN PRN IV MODERATE PAIN Last administered on 11/14/16 14:08; Start 11/14/16 at 13:45; Stop 11/14/16 at 23:01; Status DC Morphine Sulfate 1 mg PRN Q10MIN PRN IV SEVERE PAIN; Start 11/14/16 at 13:45; Stop 11/14/16 at 23:01; Status DC Ringer's Solution 1,000 ml @ 30 mls/hr Q24H IV ; Start 11/14/16 at 13:30; Stop 11/15/16 at 23:00 Lidocaine HCl 2 ml PRN 1X PRN ID PRIOR TO IV START; Start 11/14/16 at 13:45; Stop 11/14/16 at 23:01; Status DC Hydromorphone HCl (Dilaudid) 0.5 mg PRN Q10MIN PRN IV SEV PAIN, Second choice; Start 11/14/16 at 13:45; Stop 11/14/16 at 23:01; Status DC Prochlorperazine Edisylate (Compazine) 5 mg PACU PRN PRN IV NAUSEA, MRX1; Start 11/14/16 at 13:45; Stop 11/14/16 at 23:01; Status DC Zolpidem Tartrate (Ambien) 5 mg PRN QHS PRN PO INSOMNIA Last administered on 20:41; Start 11/14/16 at 20:15 Throat Lozenges (Cepacol Sore Throat Lozenge) 1 rita PRN Q2HRS PRN PO SORE THROAT Last administered on 11/15/16 05:29; Start 11/15/16 at 03:15 Hydromorphone HCl (Dilaudid) 0.8 mg PRN Q2HR PRN IVP PAIN; Start 11/15/16 at 08 :45 Acetaminophen/ Hydrocodone Bitart (Lortab 10/325) 1 tab PRN Q4HRS PRN PO PAIN; Start 11/15/16 at 08:45 Active Scripts Active Bactrim Ds Tablet (Sulfamethoxazole/Trimethoprim) 1 Each Tablet 1 Tab PO BID Supply 5-325 Tablet (Acetaminophen/Hydrocodone Bitart) 1 Each Tablet 1-2 Tab PO Q4-6HRS Promethazine-Codeine Syrup (Promethazine Hcl/Codeine) 118 Ml Syrup 5 Ml PO Q4- 6HRS Zithromax (Azithromycin) 250 Mg Tablet 1 Pkg PO UD Proair Hfa Inhaler (Albuterol Sulfate) 8.5 Gm Hfa.aer.ad 1 Puff INH PRN Q6HRS PRN Tessalon Perle (Benzonatate) 100 Mg Capsule 1 Cap PO TID Prednisone 50 Mg Tablet 1 Tab PO DAILY Vitals/I & O Vital Sign - Last 24 Hours 11/14/16 11/14/16 11/14/16 11/14/16 09:33 11:00 11:13 11:26 Temp 98.1 97.8 98.1 97.8 Pulse 78 89 Resp 20 20 B/P (MAP) 120/77 (91) 123/81 Pulse Ox 97 100 O2 Delivery Room Air Room Air Room Air Room Air 11/14/16 11/14/16 11/14/16 11/14/16 13:16 13:16 13:30 13:31 Temp 98.6 98.6 Pulse 75 58 Resp 16 16 16 B/P (MAP) 134/83 147/81 Pulse Ox 100 100 100 O2 Delivery Mask Simple Mask Simple Mask Simple Mask O2 Flow Rate 10 10 10.0 10 11/14/16 11/14/16 11/14/16 11/14/16 13:40 13:46 13:56 14:01 Temp 99.6 99.6 Pulse 70 73 Resp 16 18 18 16 B/P (MAP) 133/85 130/82 Pulse Ox 100 98 98 98 O2 Delivery Simple Mask Room Air Room Air Room Air O2 Flow Rate 10.0 11/14/16 11/14/16 11/14/16 11/14/16 14:08 14:30 14:39 14:45 Temp 98.4 98.4 98.4 98.4 Pulse 72 75 Resp 16 18 20 B/P (MAP) 118/72 (87) 127/84 (98) Pulse Ox 98 99 99 O2 Delivery Room Air Room Air Room Air Room Air 11/14/16 11/14/16 11/14/16 11/14/16 15:00 15:15 15:45 15:53 Temp 98.4 98.4 98.4 98.4 98.4 98.4 Pulse 83 78 87 Resp 18 18 18 B/P (MAP) 119/78 (92) 114/74 (87) 123/68 (86) Pulse Ox 99 98 98 O2 Delivery Room Air Room Air Room Air Room Air 11/14/16 11/14/16 11/14/16 11/14/16 16:15 16:44 17:15 18:45 Temp 98.4 98.4 98.4 98.4 Pulse 85 86 Resp 18 18 B/P (MAP) 120/76 (91) 122/76 (91) Pulse Ox 98 98 O2 Delivery Room Air Room Air Room Air Room Air 11/14/16 11/14/16 11/14/16 11/14/16 19:15 20:00 20:41 20:42 Temp 98.4 98.4 Pulse 79 Resp 16 20 20 B/P (MAP) 108/60 (76) Pulse Ox 96 98 98 O2 Delivery Room Air Mask Room Air Room Air O2 Flow Rate 10.0 6/29/17 6/29/17 6/30/17 6/30/17 22:51 23:15 01:10 01:10 Temp 99.0 99.0 Pulse 89 Resp 20 16 20 20 B/P (MAP) 116/72 (87) Pulse Ox 98 97 97 97 O2 Delivery Room Air Room Air Room Air Room Air 11/15/16 11/15/16 11/15/16 11/15/16 02:10 03:11 03:41 05:25 Resp 20 20 20 20 Pulse Ox 97 97 97 97 O2 Delivery Room Air Room Air 11/15/16 11/15/16 11/15/16 11/15/16 05:25 07:00 07:31 07:39 Temp 98.8 98.8 Pulse 74 Resp 20 18 B/P (MAP) 122/86 (98) Pulse Ox 97 95 O2 Delivery Room Air Room Air Room Air Room Air 11/15/16 07:39 O2 Delivery Room Air Intake and Output 11/14/16 11/14/16 11/15/16 15:00 23:00 07:00 Intake Total 1650 ml 1320 ml Output Total 260 ml 300 ml Balance 1390 ml -300 ml 1320 ml KAREN BLANDON MD Nov 15, 2016 09:27
[2016-11-15] MEDS: HYDROcodone/APAP 10/325 1 TAB TABLET PO PRN ×4 (09:58→22:40)
[2016-11-15] MEDS: NICOTINE 21MG PATCH. TD SCH ×3 (09:59→12:15)
[2016-11-15] MEDS: DOCUSATE SODIUM 100 MG CAPSULE. PO SCH ×3 (09:59→20:25)
[2016-11-15] MEDS: IV RINGERS,LACTATED 1000ML 1,000 ML IV SCH (10:01)
[2016-11-15 11:00] VITALS: BP 118/80
[2016-11-15] MEDS: NICOTINE POLACRILEX 2MG GUM PACKAGE of 12. BC PRN ×2 (13:10→18:31)
--- NOTE | 2016-11-15 13:40 | PDOC ---
ALLA LEMOS [employer]IAN 11/15/16 1340: SURGICAL PROGRESS NOTE Subjective incisional pain, back and right shoulder pain ambulating to BR Vital Signs Vital Signs Date Time Temp Pulse Resp B/P (MAP) Pulse Ox O2 Delivery O2 Flow Rate FiO2 11/15/16 13:13 Room Air 11/15/16 11:00 97.5 60 18 118/80 (93) 100 97.5 11/14/16 20:00 10.0 I&O Intake and Output 11/15/16 06:59 Intake Total 2970 ml Output Total 560 ml Balance 2410 ml Intake Oral 840 ml IV Total 2130 ml Output Urine Total 550 ml Estimated Blood Loss 10 ml # Voids 4 General: Alert, Oriented X3, Cooperative, No acute distress Abdomen: Soft, Other (dressing dry, incisional TTP) Labs Laboratory Tests Test 11/13/16 16:26 11/13/16 16:59 11/13/16 17:15 11/15/16 05:24 Bedside Urine HCG, Qualitative Hcg negative (Negative) White Blood Count 22.3 x10^3/uL (4.0-11.0) 15.9 x10^3/uL (4.0-11.0) Red Blood Count 4.12 x10^6/uL (3.50-5.40) 3.28 x10^6/uL (3.50-5.40) Hemoglobin 13.1 g/dL (12.0-15.5) 10.5 g/dL (12.0-15.5) Hematocrit 39.1 % (36.0-47.0) 31.0 % (36.0-47.0) Mean Corpuscular Volume 95 fL (79-100) 95 fL (79-100) Mean Corpuscular Hemoglobin 32 pg (25-35) 32 pg (25-35) Mean Corpuscular Hemoglobin Concent 34 g/dL (31-37) 34 g/dL (31-37) Red Cell Distribution Width 13.9 % (11.5-14.5) 14.1 % (11.5-14.5) Platelet Count 256 x10^3/uL (140-400) 210 x10^3/uL (140-400) Neutrophils (%) (Auto) 84 % (31-73) 66 % (31-73) Lymphocytes (%) (Auto) 9 % (24-48) 26 % (24-48) Monocytes (%) (Auto) 6 % (0-9) 8 % (0-9) Eosinophils (%) (Auto) 0 % (0-3) 0 % (0-3) Basophils (%) (Auto) 0 % (0-3) 0 % (0-3) Neutrophils # (Auto) 18.8 x10^3uL (1.8-7.7) 10.4 x10^3uL (1.8-7.7) Lymphocytes # (Auto) 2.1 x10^3/uL (1.0-4.8) 4.1 x10^3/uL (1.0-4.8) Monocytes # (Auto) 1.4 x10^3/uL (0.0-1.1) 1.3 x10^3/uL (0.0-1.1) Eosinophils # (Auto) 0.0 x10^3/uL (0.0-0.7) 0.0 x10^3/uL (0.0-0.7) Basophils # (Auto) 0.1 x10^3/uL (0.0-0.2) 0.0 x10^3/uL (0.0-0.2) Segmented Neutrophils % 86 % (35-66) Lymphocytes % 6 % (24-48) Monocytes % 7 % (0-10) Basophils % 1 % (0-3) Platelet Estimate Adequate (ADEQUATE) Sodium Level 136 mmol/L (136-145) 139 mmol/L (136-145) Potassium Level 3.4 mmol/L (3.5-5.1) 3.9 mmol/L (3.5-5.1) Chloride Level 100 mmol/L (98-107) 106 mmol/L (98-107) Carbon Dioxide Level 24 mmol/L (21-32) 27 mmol/L (21-32) Anion Gap 12 (6-14) 6 (6-14) Blood Urea Nitrogen 13 mg/dL (7-20) 15 mg/dL (7-20) Creatinine 0.6 mg/dL (0.6-1.0) 0.6 mg/dL (0.6-1.0) Estimated GFR (Cockcroft-Gault) 136.9 136.9 BUN/Creatinine Ratio 22 (6-20) Glucose Level 104 mg/dL (70-99) 113 mg/dL (70-99) Calcium Level 9.1 mg/dL (8.5-10.1) 8.2 mg/dL (8.5-10.1) Total Bilirubin 1.4 mg/dL (0.2-1.0) Aspartate Amino Transf (AST/SGOT) 16 U/L (15-37) Alanine Aminotransferase (ALT/SGPT) 17 U/L (14-59) Alkaline Phosphatase 58 U/L (46-116) Total Protein 8.1 g/dL (6.4-8.2) Albumin 4.2 g/dL (3.4-5.0) Albumin/Globulin Ratio 1.1 (1.0-1.7) Urine Collection Type U cath Urine Color Yellow Urine Clarity Clear Urine pH 7.0 Urine Specific [place] >=1.030 Urine Protein 30 mg/dL (NEG-TRACE) Urine Glucose (UA) Negative mg/dL (NEG) Urine Ketones (Stick) 15 mg/dL (NEG) Urine Blood Small (NEG) Urine Nitrite Negative (NEG) Urine Bilirubin Negative (NEG) Urine Urobilinogen Dipstick 1.0 mg/dL (0.2 mg/dL) Urine Leukocyte Esterase Negative (NEG) Urine RBC 6-10 /HPF (0-2) Urine WBC Occ /HPF (0-4) Urine Squamous Epithelial Cells Few /LPF Urine Bacteria Few /HPF (0-FEW) Urine Mucus Mod /LPF Urine Opiates Screen Pos (NEG) Urine Methadone Screen Neg (NEG) Urine Barbiturates Neg (NEG) Urine Phencyclidine Screen Neg (NEG) Urine Amphetamine/Methamphetamine Neg (NEG) Urine Benzodiazepines Screen Neg (NEG) Urine Cocaine Screen Neg (NEG) Urine Cannabinoids Screen Pos (NEG) Urine Ethyl Alcohol Neg (NEG) Laboratory Tests Test 11/15/16 05:24 White Blood Count 15.9 x10^3/uL (4.0-11.0) Red Blood Count 3.28 x10^6/uL (3.50-5.40) Hemoglobin 10.5 g/dL (12.0-15.5) Hematocrit 31.0 % (36.0-47.0) Mean Corpuscular Volume 95 fL (79-100) Mean Corpuscular Hemoglobin 32 pg (25-35) Mean Corpuscular Hemoglobin Concent 34 g/dL (31-37) Red Cell Distribution Width 14.1 % (11.5-14.5) Platelet Count 210 x10^3/uL (140-400) Neutrophils (%) (Auto) 66 % (31-73) Lymphocytes (%) (Auto) 26 % (24-48) Monocytes (%) (Auto) 8 % (0-9) Eosinophils (%) (Auto) 0 % (0-3) Basophils (%) (Auto) 0 % (0-3) Neutrophils # (Auto) 10.4 x10^3uL (1.8-7.7) Lymphocytes # (Auto) 4.1 x10^3/uL (1.0-4.8) Monocytes # (Auto) 1.3 x10^3/uL (0.0-1.1) Eosinophils # (Auto) 0.0 x10^3/uL (0.0-0.7) Basophils # (Auto) 0.0 x10^3/uL (0.0-0.2) Sodium Level 139 mmol/L (136-145) Potassium Level 3.9 mmol/L (3.5-5.1) Chloride Level 106 mmol/L (98-107) Carbon Dioxide Level 27 mmol/L (21-32) Anion Gap 6 (6-14) Blood Urea Nitrogen 15 mg/dL (7-20) Creatinine 0.6 mg/dL (0.6-1.0) Estimated GFR (Cockcroft-Gault) 136.9 Glucose Level 113 mg/dL (70-99) Calcium Level 8.2 mg/dL (8.5-10.1) Problem List Problems Medical Problems: (1) Appendicitis Status: Acute Assessment/Plan s/p lap appy, perforated continue abx, pain management wbc improved 15.9 down from 22.3 Problems: LUIS MIGUEL VARELA MD 11/16/16 1651: SURGICAL PROGRESS NOTE Assessment/Plan Agree with above Problems: ALLA LEMOS [employer] 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
[2016-11-15 15:47] VITALS: BP 131/83
--- NOTE | 2016-11-15 15:56 | PDOC2 ---
EVY SANDERSON APRN 11/15/16 2214: Consult: DICTATION DOWN Consulted 11/15/2016 Referring physician: Dr. Selby for peritonitis HPI: This is a 36 year old female who presented with acute onset of RLQ pain and N/V associated with leukocytosis. An CT abdomen/pelvis showed enlarged and inflamed appendix. No free air or abscess. She underwent an lap appendectomy performed by Dr. Tamez on 11/14. A perforated appendix with localized peritonitis was found. She is currently on Zosyn. Patient is c/o upper abdominal and back pain. + flatus. Denies N/V or BM. Tolerating regular diet. No fever, chills or sweats. + vaginal discharge. Pelvic exam in ER. Treated empirically for STDs. PMH: No significant PMH PSH: . SH: + marijuana use. Sexually active. ALL: NKDA MEDS: Reviewed JUL. Include Zosyn. One time dose metronidazole, Rocephin and azithromycin in ER for potential STDs. ROS: per HPI, otherwise all other ROS negative. PHYSICAL EXAM: GENERAL: Prop[ped up in bed, relaxed appearance, NAD VS: Afebrile. Stable HENT: PERRL. OP/OC clear NECK: Supple LUNGS: Clear CV: Normal S1 and S2. ABDOMEN: Distended, BS present, soft, mildly tender to light palpation. small incisions without drainage/redness. + binder. EXT: No edema or cyanosis. SKIN: Without rash Peripheral IV: ok LABS: Reviewed. WBC down to 15,900 from 22,300. Cr. 0.6. Urine tox + cannabinoids and opiates. Chlamydia/gonorrhea pending WET PREP Final YEAST NONE SEEN TRICHOMONAS NONE SEEN CLUE CELLS NONE SEEN WBCS OCCASIONAL RBCS NO RBCS SEEN SQUAMOUS EPS FEW IMPRESSION Perforated appendix. s/p lap appendectomy, 11/14. Localized peritonitis Leukocytosis Vaginal discharge. Treated empirically for STDs Substance abuse PLAN Agree with Zosyn Monitor lab values Supportive care Thank you IAN HAMLIN MD 11/15/16 0942: Attending Co-Sign The patient was seen and interviewed as well as examined at the bedside. The chart was reviewed. The case was discussed. Agree with the plan of care. EVY SANDERSON APRN Nov 15, 2016 15:56 IAN HAMLIN MD Nov 15, 2016 15:58
[2016-11-15] MEDS: ENOXAPARIN 40 MG/0.4 ML SYRINGE. SQ SCH (16:00)
[2016-11-15] MEDS: oxyCODONE/APAP 5/325 1 TAB TABLET PO PRN ×2 (18:25→22:41)
[2016-11-15 19:00] VITALS: BP 147/92
[2016-11-15] MEDS: ZOLPIDEM 5 MG TABLET. PO PRN (20:25)
[2016-11-15 23:00] VITALS: BP 136/94
[2016-11-15] MEDS ORDERED: diphenhydrAMINE HCL 25 MG CAPSULE PO PRN (23:45)
[2016-11-16] MEDS: PIPERACILLIN/TAZOBACTAM 3.375 GM in IV NORMAL SALINE 50ML 50 ML IV SCH ×4 (00:14→18:17)
[2016-11-16] MEDS: HYDROmorphone 2 MG/ML VIAL IVP PRN ×4 (01:15→14:11)
[2016-11-16] MEDS: HYDROcodone/APAP 10/325 1 TAB TABLET PO PRN ×3 (02:58→13:01)
[2016-11-16] MEDS: oxyCODONE/APAP 5/325 1 TAB TABLET PO PRN ×3 (02:58→16:18)
[2016-11-16 03:00] VITALS: BP 140/94
[2016-11-16 07:00] VITALS: BP 141/80
[2016-11-16] MEDS: NICOTINE 21MG PATCH. TD SCH (08:07)
[2016-11-16] MEDS: NICOTINE POLACRILEX 2MG GUM PACKAGE of 12. BC PRN ×3 (08:08→16:45)
[2016-11-16] MEDS: DOCUSATE SODIUM 100 MG CAPSULE. PO SCH ×2 (09:00→20:16)
[2016-11-16 09:18] LABS: BASO # 0.1 x10^3/uL (0.0-0.2); BASO % 1 % (0-3); EOS % 1 % (0-3); HEMATOCRIT 32.6 % (36.0-47.0); HEMOGLOBIN 11.3 g/dL (12.0-15.5); LYMPH # 4.7 x10^3/uL (1.0-4.8); LYMPH % 48 % (24-48); MEAN CORPUSCULAR HEMOGLOBIN 32 pg (25-35); MEAN CORPUSCULAR HGB CONC 35 g/dL (31-37); MEAN CORPUSCULAR VOLUME 93 fL (79-100); MONO % 7 % (0-9); NEUT % 42 % (31-73); PLATELET COUNT 250 x10^3/uL (140-400); RED CELL DISTRIBUTION WIDTH 13.6 % (11.5-14.5); WHITE BLOOD COUNT 9.8 x10^3/uL (4.0-11.0)
[2016-11-16 09:33] LABS: CALCIUM 8.4 mg/dL (8.5-10.1); CREATININE 0.8 mg/dL (0.6-1.0); GFR 98.2; POTASSIUM 3.6 mmol/L (3.5-5.1)
--- NOTE | 2016-11-16 10:01 | PDOC ---
ALLA LEMOS REVIEW SPECIALIST 11/16/16 1001: SURGICAL PROGRESS NOTE Subjective continued RLQ pain, it is slightly improved from yesterday it does hurt to walk, move, etc she reports she has been walking in halls she does take percocet at home for pain needs at times Vital Signs Vital Signs Date Time Temp Pulse Resp B/P (MAP) Pulse Ox O2 Delivery O2 Flow Rate FiO2 11/16/16 09:06 Room Air 11/16/16 07:00 99.0 65 16 141/80 (100) 95 99.0 I&O Intake and Output 11/16/16 06:59 # Voids 3 General: Alert, Oriented X3, Cooperative, No acute distress Abdomen: Soft, Other (ND, tender RLQ, no gaurding or rebound , lap sites c/d/i , no erythema ) Labs Laboratory Tests Test 11/15/16 05:24 11/16/16 09:10 White Blood Count 15.9 x10^3/uL (4.0-11.0) 9.8 x10^3/uL (4.0-11.0) Red Blood Count 3.28 x10^6/uL (3.50-5.40) 3.50 x10^6/uL (3.50-5.40) Hemoglobin 10.5 g/dL (12.0-15.5) 11.3 g/dL (12.0-15.5) Hematocrit 31.0 % (36.0-47.0) 32.6 % (36.0-47.0) Mean Corpuscular Volume 95 fL (79-100) 93 fL (79-100) Mean Corpuscular Hemoglobin 32 pg (25-35) 32 pg (25-35) Mean Corpuscular Hemoglobin Concent 34 g/dL (31-37) 35 g/dL (31-37) Red Cell Distribution Width 14.1 % (11.5-14.5) 13.6 % (11.5-14.5) Platelet Count 210 x10^3/uL (140-400) 250 x10^3/uL (140-400) Neutrophils (%) (Auto) 66 % (31-73) 42 % (31-73) Lymphocytes (%) (Auto) 26 % (24-48) 48 % (24-48) Monocytes (%) (Auto) 8 % (0-9) 7 % (0-9) Eosinophils (%) (Auto) 0 % (0-3) 1 % (0-3) Basophils (%) (Auto) 0 % (0-3) 1 % (0-3) Neutrophils # (Auto) 10.4 x10^3uL (1.8-7.7) 4.1 x10^3uL (1.8-7.7) Lymphocytes # (Auto) 4.1 x10^3/uL (1.0-4.8) 4.7 x10^3/uL (1.0-4.8) Monocytes # (Auto) 1.3 x10^3/uL (0.0-1.1) 0.7 x10^3/uL (0.0-1.1) Eosinophils # (Auto) 0.0 x10^3/uL (0.0-0.7) 0.1 x10^3/uL (0.0-0.7) Basophils # (Auto) 0.0 x10^3/uL (0.0-0.2) 0.1 x10^3/uL (0.0-0.2) Sodium Level 139 mmol/L (136-145) 140 mmol/L (136-145) Potassium Level 3.9 mmol/L (3.5-5.1) 3.6 mmol/L (3.5-5.1) Chloride Level 106 mmol/L (98-107) 104 mmol/L (98-107) Carbon Dioxide Level 27 mmol/L (21-32) 28 mmol/L (21-32) Anion Gap 6 (6-14) 8 (6-14) Blood Urea Nitrogen 15 mg/dL (7-20) 11 mg/dL (7-20) Creatinine 0.6 mg/dL (0.6-1.0) 0.8 mg/dL (0.6-1.0) Estimated GFR (Cockcroft-Gault) 136.9 98.2 Glucose Level 113 mg/dL (70-99) 117 mg/dL (70-99) Calcium Level 8.2 mg/dL (8.5-10.1) 8.4 mg/dL (8.5-10.1) Laboratory Tests Test 11/16/16 09:10 White Blood Count 9.8 x10^3/uL (4.0-11.0) Red Blood Count 3.50 x10^6/uL (3.50-5.40) Hemoglobin 11.3 g/dL (12.0-15.5) Hematocrit 32.6 % (36.0-47.0) Mean Corpuscular Volume 93 fL (79-100) Mean Corpuscular Hemoglobin 32 pg (25-35) Mean Corpuscular Hemoglobin Concent 35 g/dL (31-37) Red Cell Distribution Width 13.6 % (11.5-14.5) Platelet Count 250 x10^3/uL (140-400) Neutrophils (%) (Auto) 42 % (31-73) Lymphocytes (%) (Auto) 48 % (24-48) Monocytes (%) (Auto) 7 % (0-9) Eosinophils (%) (Auto) 1 % (0-3) Basophils (%) (Auto) 1 % (0-3) Neutrophils # (Auto) 4.1 x10^3uL (1.8-7.7) Lymphocytes # (Auto) 4.7 x10^3/uL (1.0-4.8) Monocytes # (Auto) 0.7 x10^3/uL (0.0-1.1) Eosinophils # (Auto) 0.1 x10^3/uL (0.0-0.7) Basophils # (Auto) 0.1 x10^3/uL (0.0-0.2) Sodium Level 140 mmol/L (136-145) Potassium Level 3.6 mmol/L (3.5-5.1) Chloride Level 104 mmol/L (98-107) Carbon Dioxide Level 28 mmol/L (21-32) Anion Gap 8 (6-14) Blood Urea Nitrogen 11 mg/dL (7-20) Creatinine 0.8 mg/dL (0.6-1.0) Estimated GFR (Cockcroft-Gault) 98.2 Glucose Level 117 mg/dL (70-99) Calcium Level 8.4 mg/dL (8.5-10.1) Problem List Problems Medical Problems: (1) Appendicitis Status: Acute Assessment/Plan s/p lap appy, perforated, peritonitis wbc normal, afebrile RLQ, although some improvement--could be high pain tolerance/postop pain vs developing abscess--typically takes 4 days to see abscess development on CT-- would continue IV abx(per ID) reviewed meds--she has currently ordered and receiving 10 mg of [place] and 5mg of percocet ---would be best to eliminate one of those--will defer to [facility], who is ordering meds Problems: LUIS MIGUEL VARELA MD 11/16/16 1651: SURGICAL PROGRESS NOTE Assessment/Plan Agree with above Problems: ALLA LEMOS APRN Nov 16, 2016 10:01 LUIS MIGUEL VARELA MD Nov 16, 2016 16:51
[2016-11-16 11:00] VITALS: BP 127/83
--- NOTE | 2016-11-16 12:11 | PDOC ---
Infectious Disease Note Subjective Subjective Comfortable at the moment, pain mostly localized to RLQ Ambulated earlier + BM Appetite good, tolerating regular diet ROS ROS GEN: Denies fevers, chills, sweats CV: Denies chest pain RESP: Denies shortness of air, cough GI: Denies n/v/d Vital Sign Vital Signs Vital Signs Date Time Temp Pulse Resp B/P (MAP) Pulse Ox O2 Delivery O2 Flow Rate FiO2 11/16/16 11:35 Room Air 11/16/16 11:00 98.4 70 16 127/83 (98) 98 98.4 Physical Exam PHYSICAL EXAM GENERAL: Propped up in bed, eating, NAD HLUNGS: Clear CV: Normal S1 and S2. ABDOMEN: Distended, BS present, soft, mildly tender to light palpation. small incisions without drainage/redness. + binder. EXT: No edema or cyanosis. SKIN: Without rash Peripheral IV: ok Labs Lab Laboratory Tests Test 11/16/16 09:10 White Blood Count 9.8 x10^3/uL (4.0-11.0) Red Blood Count 3.50 x10^6/uL (3.50-5.40) Hemoglobin 11.3 g/dL (12.0-15.5) Hematocrit 32.6 % (36.0-47.0) Mean Corpuscular Volume 93 fL (79-100) Mean Corpuscular Hemoglobin 32 pg (25-35) Mean Corpuscular Hemoglobin Concent 35 g/dL (31-37) Red Cell Distribution Width 13.6 % (11.5-14.5) Platelet Count 250 x10^3/uL (140-400) Neutrophils (%) (Auto) 42 % (31-73) Lymphocytes (%) (Auto) 48 % (24-48) Monocytes (%) (Auto) 7 % (0-9) Eosinophils (%) (Auto) 1 % (0-3) Basophils (%) (Auto) 1 % (0-3) Neutrophils # (Auto) 4.1 x10^3uL (1.8-7.7) Lymphocytes # (Auto) 4.7 x10^3/uL (1.0-4.8) Monocytes # (Auto) 0.7 x10^3/uL (0.0-1.1) Eosinophils # (Auto) 0.1 x10^3/uL (0.0-0.7) Basophils # (Auto) 0.1 x10^3/uL (0.0-0.2) Sodium Level 140 mmol/L (136-145) Potassium Level 3.6 mmol/L (3.5-5.1) Chloride Level 104 mmol/L (98-107) Carbon Dioxide Level 28 mmol/L (21-32) Anion Gap 8 (6-14) Blood Urea Nitrogen 11 mg/dL (7-20) Creatinine 0.8 mg/dL (0.6-1.0) Estimated GFR (Cockcroft-Gault) 98.2 Glucose Level 117 mg/dL (70-99) Calcium Level 8.4 mg/dL (8.5-10.1) Objective Assessment Perforated appendix. s/p lap appendectomy, 11/14. Localized peritonitis Leukocytosis, improved Vaginal discharge. Treated empirically for STDs. Chlamydia/gonorrhea neg Substance abuse Plan Plan of Care Zosyn Ambulation Supportive care Attending Co-Sign The patient was seen and interviewed as well as examined at the bedside. The chart was reviewed. The case was discussed. Agree with the plan of care. EVY SANDERSON APRN Nov 16, 2016 12:11 IAN HAMLIN MD Nov 16, 2016 13:52
[2016-11-16 15:00] VITALS: BP 127/81
--- NOTE | 2016-11-16 15:11 | PDOC ---
PROGRESS NOTES Chief Complaint Chief Complaint Acute appendicitis ASSESSMENT AND PLAN: 1. Appendicitis with perf: s/p lap mere.y on 11/13. recovering appropriately 2. Peritonitis: on Zosyn; ID following 3. Pain control: d/w pt - plan to establish PO regimen for anticipated D/C home soon. She prefers oxy over hydrocodone. Dilaudid 0.5 q5 as last resort. has toradol as well. pt agreeable. 4. Anxiety: stress over family situation (her kids staying with irresponsible mother) causing minor meltdown, wants to leave AMA. calmed down, ativan x1 5. Obesity BMI 35 6. Dispo: home w/PO abx when cleared by surgery History of Present Illness History of Present Illness pain control ok. tolerating PO w/o N/V. pain in RLQ Vitals Vitals Vital Signs Date Time Temp Pulse Resp B/P (MAP) Pulse Ox O2 Delivery O2 Flow Rate FiO2 11/16/16 14:56 Room Air 11/16/16 11:00 98.4 70 16 127/83 (98) 98 98.4 Physical Exam General: Alert, Oriented X3, Cooperative, No acute distress Heart: Regular rate, No murmurs Lungs: Clear Abdomen: Normal bowel sounds, Soft, Other (ND, tender RLQ, no guarding or rebound , lap sites c/d/i, no erythema ) Extremities: No clubbing, No cyanosis, No edema Skin: No rashes Labs LABS Laboratory Tests Test 11/16/16 09:10 White Blood Count 9.8 x10^3/uL (4.0-11.0) Red Blood Count 3.50 x10^6/uL (3.50-5.40) Hemoglobin 11.3 g/dL (12.0-15.5) Hematocrit 32.6 % (36.0-47.0) Mean Corpuscular Volume 93 fL (79-100) Mean Corpuscular Hemoglobin 32 pg (25-35) Mean Corpuscular Hemoglobin Concent 35 g/dL (31-37) Red Cell Distribution Width 13.6 % (11.5-14.5) Platelet Count 250 x10^3/uL (140-400) Neutrophils (%) (Auto) 42 % (31-73) Lymphocytes (%) (Auto) 48 % (24-48) Monocytes (%) (Auto) 7 % (0-9) Eosinophils (%) (Auto) 1 % (0-3) Basophils (%) (Auto) 1 % (0-3) Neutrophils # (Auto) 4.1 x10^3uL (1.8-7.7) Lymphocytes # (Auto) 4.7 x10^3/uL (1.0-4.8) Monocytes # (Auto) 0.7 x10^3/uL (0.0-1.1) Eosinophils # (Auto) 0.1 x10^3/uL (0.0-0.7) Basophils # (Auto) 0.1 x10^3/uL (0.0-0.2) Sodium Level 140 mmol/L (136-145) Potassium Level 3.6 mmol/L (3.5-5.1) Chloride Level 104 mmol/L (98-107) Carbon Dioxide Level 28 mmol/L (21-32) Anion Gap 8 (6-14) Blood Urea Nitrogen 11 mg/dL (7-20) Creatinine 0.8 mg/dL (0.6-1.0) Estimated GFR (Cockcroft-Gault) 98.2 Glucose Level 117 mg/dL (70-99) Calcium Level 8.4 mg/dL (8.5-10.1) BOB ARCE MD Nov 16, 2016 15:11
[2016-11-16] MEDS ORDERED: KETOROLAC TROMETHAMINE 60 MG/2 ML INJ. IM ONE (15:15)
[2016-11-16] MEDS ORDERED: LORazepam 0.5 MG TABLET PO ONE (16:15)
[2016-11-16] MEDS: ENOXAPARIN 40 MG/0.4 ML SYRINGE. SQ SCH (16:19)
[2016-11-16] MEDS ORDERED: oxyCODONE/APAP 5/325 1 TAB TABLET PO PRN (16:45)
[2016-11-16] MEDS ORDERED: HYDROmorphone 2 MG/ML VIAL IVP PRN (18:21)
[2016-11-16 19:20] VITALS: BP 116/62
[2016-11-16] MEDS: ZOLPIDEM 5 MG TABLET. PO PRN (20:16)
[2016-11-16 23:25] VITALS: BP 117/59
[2016-11-17] MEDS: PIPERACILLIN/TAZOBACTAM 3.375 GM in IV NORMAL SALINE 50ML 50 ML IV SCH ×2 (00:10→05:19)
[2016-11-17] MEDS: oxyCODONE/APAP 5/325 1 TAB TABLET PO PRN ×2 (00:12→05:19)
[2016-11-17 03:15] VITALS: BP 148/78
[2016-11-17 07:13] LABS: HEMATOCRIT 37.1 % (36.0-47.0); HEMOGLOBIN 12.4 g/dL (12.0-15.5); RED BLOOD COUNT 3.89 x10^6/uL (3.50-5.40); RED CELL DISTRIBUTION WIDTH 13.3 % (11.5-14.5); WHITE BLOOD COUNT 9.3 x10^3/uL (4.0-11.0)
[2016-11-17 07:27] LABS: CALCIUM 8.8 mg/dL (8.5-10.1); CREATININE 0.8 mg/dL (0.6-1.0); GFR 98.2; POTASSIUM 3.5 mmol/L (3.5-5.1)
[2016-11-17] MEDS: DOCUSATE SODIUM 100 MG CAPSULE. PO SCH (09:00)
[2016-11-17] MEDS: NICOTINE 21MG PATCH. TD SCH (09:00)
[2016-11-17] MEDS ORDERED: NON FORMULARY ITEM (Albuterol Sulfate (Proair Hfa Inhaler) 1 PUFF) INH PRN (17:00)
--- NOTE | 2016-11-17 17:04 | PDOC3 ---
Discharge Summary* Date of Admission: Dec 13, 2016 Date of Discharge: Nov 17, 2016 Admitting Diagnosis (1) Appendicitis Status: Acute Problems: Final Diagnosis Appendicitis with perforation CONSULTS Surgery Procedures lap appendectomy Brief Hospital Course Mrs Gamboa is a 36 y/o woman who awoke with generalized abd pain at 4 AM on day of admit. pain was severe, especially in right lower quadrant, but radiating all over. This was associated with nausea and vomiting as well as fever. She initially presented to [facility] in the [facility], but was sent home without any abnormal findings and was advised to return if symptoms were recurrent. She decided to come to [facility] when symptoms persisted. Here, WBC wer 22,000, and CT was consistent with acute appendicitis. 1. Appendicitis with perf: s/p lap mere.y on 11/13. recovering appropriately 2. Peritonitis: on Zosyn; switched to augmentin at time of discharge 3. Pain control: Percocet increased to 10mg q4h PRN. 4. Anxiety: stress over family situation (her kids staying with irresponsible mother) causing minor meltdown on 11/16; same issue prompted almost AMA on 11/17 5. Obesity BMI 35 6. Dispo: home on PO abx and percocet, with F/U with surgery in 10 days Disposition/Orders: D/C to Home CONDITION AT DISCHARGE: Improved Diet: Regular Scheduled Azithromycin (Zithromax), 1 PKG PO UD Benzonatate (Tessalon Perle), 1 CAP PO TID Hydrocodone/Apap 5-325 ([place] 5-325 Tablet), 1-2 TAB PO Q4-6HRS Prednisone (Prednisone), 1 TAB PO DAILY Promethazine Hcl/Codeine (Promethazine-Codeine Syrup), 5 ML PO Q4-6HRS Sulfamethoxazole/Trimethoprim (Bactrim Ds Tablet), 1 TAB PO BID Scheduled PRN Albuterol Sulfate (Proair Hfa Inhaler), 1 PUFF INH PRN Q6HRS PRN for SHORTNESS OF BREATH FOLLOW UP APPOINTMENT: Dr Tamez in 10 days BOB ARCE MD Nov 17, 2016 17:04
[2016-11-17] MEDS ORDERED: ALBUTEROL SULFATE 2.5 MG/3 ML NEBU. NEB PRN (17:15)
--- NOTE | 2016-11-18 08:41 | PATHOLOGY ---
PATHOLOGY REPORT * * * * * * * * FINAL DIAGNOSIS: Appendix, laparoscopic appendectomy: - Acute appendicitis with serosal exudate. COMMENT: There is no evidence of malignancy. (JPM/db; 11/16/2016) REPORT ELECTRONICALLY SIGNED BY: Barron Santiago M.D. DATE/TIME: 11/18/2016 08:41 * * * * * * * * GROSS PATHOLOGY: Received in two parts, in formalin labeled "Kezia Gamboa, appendix," is an appendix. The proximal segment measures 5.2 cm in length and 0.8 cm in diameter with a small amount of attached mesoappendix. The distal end of the segment is shaggy and irregular. The distal segment measures 3.4 cm in length and 0.8 cm in diameter. The proximal and distal ends of this segment are covered by a thin layer of pacheco riddle exudate. The serosal surface of both segments are pink-riddle, smooth and glistening. The proximal margin is inked with black ink. The visible serosal surfaces of the distal segment are differentially inked with blue ink. Sectioning reveals a pink riddle, pinpoint lumen. Package Car Driver sections are submitted in cassette A1. (JPM; 11/14/16) INITIAL CPT CODE(S): A; 94653 Professional services performed by [facility] [place] [address] Technical services performed by [facility] at [address] [place] [address] [address], [place] [address]. SPECIMEN(S) RECEIVED: A.Appendix CLINICAL HISTORY: Abdominal pain, appendicitis PATIENT: KEZIA GAMBOA /AGE: 1 1980 (Age: 36) PATIENT #: [id number] ALT CASE #: SPECIMEN COLLECTION DATE: 11/14/2016 SPECIMEN RECEIVED DATE: 11/14/2016 [facility] - [address] [place] [address] - PHONE: [phone] * * * END OF REPORT * * *
== END 2016-11-17 08:45 | disposition home or self-care (01) | DRG 853 ==
LOC: ER 16:13 → 4 NORTH 19:19
PROVIDERS: ADMIT Internal Medicine Hematology & Oncology; ATTEND Internal Medicine Hematology & Oncology
PROC: 0DTJ4ZZ Resection of Appendix, Percutaneous Endoscopic Approach (ICD-10-PCS; principal; 2016-11-17)
DX: A41.9 Sepsis, unspecified organism (principal); K35.3 Acute appendicitis with localized peritonitis; F41.9 Anxiety disorder, unspecified; F12.90 Cannabis use, unspecified, uncomplicated; E66.9 Obesity, unspecified; K66.8 Other specified disorders of peritoneum; N89.8 Other specified noninflammatory disorders of vagina; Z79.2 Long term (current) use of antibiotics; Z87.440 Personal history of urinary (tract) infections; Z79.899 Other long term (current) drug therapy; Z68.35 Body mass index [BMI] 35.0-35.9, adult
CPT/HCPCS: 36415; 74177; 80048; 80053; 81001; 81025; 85007; 85027; 87491; 87591; 88304; 96361; 96372; 96374; 96375; A6539; G0481; J0330; J0696; J1100; J1170; J1650; J1885; J2001; J2250; J2405; J2543; J2550; J2704; J2710; J3010; J3480; J3490; J7030; J7120; Q0111; Q0144; Q0163; Q9966; Q9967; 99285-25

== ENCOUNTER 2017-04-23 16:14 | Emergency (ER) | payer OTHER ==
[~2017-04-23] VITALS: Ht 154.9 cm; Wt 81.6 kg
[2017-04-23 16:53] LABS: BILIRUBIN,URINE NEGATIVE (NEG); GLUCOSE,URINE NEGATIVE (NEG); NITRITE,URINE NEGATIVE (NEG); PROTEIN,URINE NEGATIVE (NEG-TRACE); UROBILINOGEN,URINE 0.2 mg/dL (0.2 mg/dL)
[2017-04-23 17:02] LABS: RBC,URINE RARE /HPF (0-2)
[2017-04-23 17:03] LABS: BACTERIA,URINE MODERATE /HPF (0-FEW); NEG OBC UR NEG; POS OBC UR POS; SQUAMOUS EPITHELIAL CELL,UR MANY /LPF
[2017-04-23 17:14] LABS: BASO # 0.1 x10^3/uL (0.0-0.2); BASO % 1 % (0-3); EOS % 1 % (0-3); HEMATOCRIT 39.7 % (36.0-47.0); HEMOGLOBIN 13.1 g/dL (12.0-15.5); LYMPH # 4.2 x10^3/uL (1.0-4.8); LYMPH % 39 % (24-48); MEAN CORPUSCULAR HEMOGLOBIN 31 pg (25-35); MEAN CORPUSCULAR HGB CONC 33 g/dL (31-37); MEAN CORPUSCULAR VOLUME 94 fL (79-100); MONO % 5 % (0-9); NEUT % 54 % (31-73); PLATELET COUNT 310 x10^3/uL (140-400); RED BLOOD COUNT 4.21 x10^6/uL (3.50-5.40); WHITE BLOOD COUNT 10.9 x10^3/uL (4.0-11.0)
[2017-04-23 17:26] LABS: CALCIUM 9.2 mg/dL (8.5-10.1); CREATININE 0.8 mg/dL (0.6-1.0); GFR 98.2; POTASSIUM 3.6 mmol/L (3.5-5.1)
[2017-04-23 17:32] LABS: ALBUMIN 3.9 g/dL (3.4-5.0); ALBUMIN/GLOBULIN RATIO 1.1 (1.0-1.7); TOTAL BILIRUBIN 0.2 mg/dL (0.2-1.0); TOTAL PROTEIN 7.6 g/dL (6.4-8.2)
[2017-04-23] MEDS ORDERED: MORPHINE SULFATE 4 MG/ML DISP.SYRIN. IV ONE (17:45)
[2017-04-23] MEDS ORDERED: ONDANSETRON PF 4 MG/2 ML VIAL. IV ONE (17:45)
[2017-04-23] MEDS ORDERED: IOHEXOL 300 MG/ML 100ML VIAL. IV ONE (18:00)
[2017-04-23] MEDS ORDERED: CONTRAST GIVEN MC PRN (18:00)
--- NOTE | 2017-04-23 18:12 | PHYS DOC ---
Past Medical History Past Medical History: No Pertinent History Past Surgical History: Appendectomy, Alcohol Use: None Drug Use: Marijuana Adult General Chief Complaint Chief Complaint: FLANK PAIN HPI HPI Patient is a 36 year old female presents with persistent suprapubic pain times one month. Patient reports some localization to right lower quadrant. Denies fever, chills, nausea, vomiting and sweats. Pain is described as dull and cramping with occasional sharp component. Patient had appendicitis with appendix removed 4 months ago. Denies post operative complications. Denies urinary frequency urgency and burning. No flank pain or hematuria. Last menstrual period was 3 weeks ago. He is appendectomy, no other surgeries. Patient does not currently have a primary care physician. [] Review of Systems Review of Systems Review symptoms as per history of present illness. All other review symptoms are negative. [] All other systems were reviewed and found to be within normal limits, except as documented in this note. Current Medications Current Medications Current Medications Medications (Trade) Dose Ordered Sig/Christian Start Time Stop Time Status Last Admin Dose Admin Info (Do NOT chart on this entry -- for MONITORING) 1 each PRN DAILY PRN 04/23/17 18:00 04/25/17 17:59 Iohexol (Omnipaque 300 Mg/ml) 75 ml 1X ONCE 04/23/17 18:00 04/23/17 18:01 DC 04/23/17 18:00 75 ML Morphine Sulfate 5 mg 1X ONCE 04/23/17 18:45 04/23/17 18:46 DC 04/23/17 18:45 5 MG Ondansetron HCl (Zofran) 4 mg 1X ONCE 04/23/17 17:45 04/23/17 17:46 DC 04/23/17 17:51 4 MG Allergies Allergies Allergies Coded Allergies Type Severity Reaction Last Updated Verified No Known Drug Allergies 11/14/16 No Physical Exam Physical Exam Constitutional: Well developed, well nourished, no acute distress, non-toxic appearance. [] HENT: Normocephalic, atraumatic, bilateral external ears normal, oropharynx moist, no oral exudates, nose normal. [] Eyes: PERRLA, EOMI, conjunctiva normal, no discharge. [] Neck: Normal range of motion, no tenderness, supple, no stridor. [] Cardiovascular:Heart rate regular rhythm, no murmur [] Lungs & Thorax: Bilateral breath sounds clear to auscultation [] Abdomen: Bowel sounds normal, soft, suprapubic pain, no rebound rigidity or guarding. [] Skin: Warm, dry, no erythema, no rash. [] Back: No tenderness, no CVA tenderness. [] Extremities: No tenderness, no cyanosis, no clubbing, ROM intact, no edema. [] Neurologic: Alert and oriented X 3, normal motor function, normal sensory function, no focal deficits noted. [] Psychologic: Affect normal, judgement normal, mood normal. [] Current Patient Data Vital Signs Vital Signs Date Time Temp Pulse Resp B/P (MAP) Pulse Ox O2 Delivery O2 Flow Rate FiO2 04/23/17 18:45 Room Air 04/23/17 16:30 97.9 92 18 145/95 (112) 100 97.9 Lab Values Laboratory Tests Test 04/23/17 16:30 04/23/17 17:00 Urine Collection Type Unknown Urine Color Yellow Urine Clarity Clear Urine pH 6.0 Urine Specific [place] 1.015 Urine Protein Negative mg/dL (NEG-TRACE) Urine Glucose (UA) Negative mg/dL (NEG) Urine Ketones (Stick) Negative mg/dL (NEG) Urine Blood Trace (NEG) Urine Nitrite Negative (NEG) Urine Bilirubin Negative (NEG) Urine Urobilinogen Dipstick 0.2 mg/dL (0.2 mg/dL) Urine Leukocyte Esterase Trace (NEG) Urine RBC Rare /HPF (0-2) Urine WBC 1-4 /HPF (0-4) Urine Squamous Epithelial Cells Many /LPF Urine Bacteria Moderate /HPF (0-FEW) Urine Mucus Slight /LPF Urine Test Negative (NEG) White Blood Count 10.9 x10^3/uL (4.0-11.0) Red Blood Count 4.21 x10^6/uL (3.50-5.40) Hemoglobin 13.1 g/dL (12.0-15.5) Hematocrit 39.7 % (36.0-47.0) Mean Corpuscular Volume 94 fL (79-100) Mean Corpuscular Hemoglobin 31 pg (25-35) Mean Corpuscular Hemoglobin Concent 33 g/dL (31-37) Red Cell Distribution Width 15.0 % (11.5-14.5) H Platelet Count 310 x10^3/uL (140-400) Neutrophils (%) (Auto) 54 % (31-73) Lymphocytes (%) (Auto) 39 % (24-48) Monocytes (%) (Auto) 5 % (0-9) Eosinophils (%) (Auto) 1 % (0-3) Basophils (%) (Auto) 1 % (0-3) Neutrophils # (Auto) 5.9 x10^3uL (1.8-7.7) Lymphocytes # (Auto) 4.2 x10^3/uL (1.0-4.8) Monocytes # (Auto) 0.6 x10^3/uL (0.0-1.1) Eosinophils # (Auto) 0.1 x10^3/uL (0.0-0.7) Basophils # (Auto) 0.1 x10^3/uL (0.0-0.2) Sodium Level 140 mmol/L (136-145) Potassium Level 3.6 mmol/L (3.5-5.1) Chloride Level 103 mmol/L (98-107) Carbon Dioxide Level 25 mmol/L (21-32) Anion Gap 12 (6-14) Blood Urea Nitrogen 14 mg/dL (7-20) Creatinine 0.8 mg/dL (0.6-1.0) Estimated GFR (Cockcroft-Gault) 98.2 BUN/Creatinine Ratio 18 (6-20) Glucose Level 109 mg/dL (70-99) H Calcium Level 9.2 mg/dL (8.5-10.1) Total Bilirubin 0.2 mg/dL (0.2-1.0) Aspartate Amino Transferase (AST) 13 U/L (15-37) L Alanine Aminotransferase (ALT) 19 U/L (14-59) Alkaline Phosphatase 64 U/L (46-116) C-Reactive Protein, Quantitative 4.2 mg/L (0-3.3) H Total Protein 7.6 g/dL (6.4-8.2) Albumin 3.9 g/dL (3.4-5.0) Albumin/Globulin Ratio 1.1 (1.0-1.7) Laboratory Tests 04/23/17 17:00 Laboratory Tests 04/23/17 17:00 EKG EKG [] Radiology/Procedures Radiology/Procedures [CT abdomen pelvis: No acute process per radiology report.] Course & Med Decision Making Course & Med Decision Making Pertinent Labs and Imaging studies reviewed. (See chart for details) [Tremendous Soft, nonsurgical, nonspecific lower abdominal pain for the past several weeks. Lab work imaging studies unremarkable. Recommend following up with PCP/WAREHOUSE CHECKER.] Dragon Disclaimer Dragon Disclaimer This electronic medical record was generated, in whole or in part, using a voice recognition dictation system. Departure Departure Impression: Primary Impression: Abdominal pain Disposition: HOME, SELF-CARE Condition: GOOD Referrals: NO PCP (PCP) LALO PARKER DO Apr 23, 2017 18:12
--- NOTE | 2017-04-23 18:36 | RAD ---
CT abdomen and pelvis with contrast 04/23/2017 Clinical indication: Right lower quadrant abdominal pain adjacent to the incision site. COMPARISON: CT abdomen and pelvis 11/13/2016 TECHNIQUE: Multiple CT images of the abdomen and pelvis were obtained following the intravenous administration of 75 mL Omnipaque 300. *One or more of the following individualized dose reduction techniques were utilized for this examination: 1. Automated exposure control. 2. Adjustment of the mA and/or kV according to patient size. 3. Use of iterative reconstruction technique. FINDINGS: Heart size is normal. Visualized lung bases are clear. Liver is normal in size and morphology. There is a stable 0.3 cm hypodensity in hepatic segment 3 series 2/image 23 which is too small to definitively characterize.. Gallbladder, spleen, adrenal glands and pancreas are unremarkable. Both kidneys present and unremarkable without hydronephrosis. Abdominal aorta is normal in caliber. Major portal, splenic and visualized. Mesenteric veins are patent. Interval appendectomy. No abdominal free fluid or pneumoperitoneum. No loculated intra-abdominal gas/fluid collection. No retroperitoneal or mesenteric lymphadenopathy. Multiple pelvic phleboliths. Mildly distended urinary bladder unremarkable. Uterus is present though incompletely evaluated by CT. No iliac or inguinal lymphadenopathy. No pelvic free fluid. There are no destructive osseous lesions. IMPRESSION: Interval appendectomy with no acute abdominal or pelvic process. Specifically, no drainable abscess, pneumoperitoneum or free fluid. Electronically signed by: Noel Tran MD (04/23/2017 6:34 PM) [facility]
[2017-04-23] MEDS ORDERED: MORPHINE SULFATE 10 MG/ML VIAL. IV ONE (18:45)
[2017-04-23 19:00] VITALS: BP 139/96
== END 2017-04-23 18:57 | disposition home or self-care (01) ==
LOC: ER 16:14
DX: R10.31 Right lower quadrant pain (principal); Z90.49 Acquired absence of other specified parts of digestive tract; Z98.890 Other specified postprocedural states; F12.10 Cannabis abuse, uncomplicated
CPT/HCPCS: 36415; 74177; 80053; 81001; 81025; 85025; 86140; 87086; 96374; 96375; 96376; 99285; J2270; J2405; Q9967

== ENCOUNTER 2017-07-10 06:30 | Emergency (ER) | payer OTHER ==
[2017-07-10] MEDS: IBUPROFEN 600 MG TABLET. PO ×2 (06:57)
[2017-07-10 07:29] LABS: INFLUENZA A PATIENT NEGATIVE (NEGATIVE); INFLUENZA B PATIENT NEGATIVE (NEGATIVE); OBC FLU VALID
[2017-07-10 07:37] LABS: NEGATIVE OBC STREP NEG; POSITIVE OBC STREP POS
[2017-07-10] MEDS: LIDOCAINE 2% VISCOUS 15 ML SOLUTION. SWSW ×2 (07:41)
[2017-07-10] MEDS: DEXAMETHASONE 4 MG TABLET PO ×2 (08:10)
== END 2017-07-10 08:22 | disposition home or self-care (01) ==
LOC: ER 06:30
DX: J02.9 Acute pharyngitis, unspecified (principal); R05 Cough; M79.1 Myalgia; F12.10 Cannabis abuse, uncomplicated; F17.210 Nicotine dependence, cigarettes, uncomplicated
CPT/HCPCS: 87070; 87804; 87804-59; 87880; 99284; J8540

== ENCOUNTER 2018-11-23 14:42 | Emergency (ER) | payer OTHER ==
[~2018-11-23] VITALS: Ht 154.9 cm; Wt 90.7 kg
[~2018-11-23 14:42] MED LIST changes: +ALBU2.5V8 INH; +HYDR-3164 PO; -HYDR-971 PO; -PROAIR HFA8.5 GM INH; -PROM118S2 PO; +PROM118S5 PO
[2018-11-23 15:00] VITALS: BP 139/80
[2018-11-23] MEDS ORDERED: AMOX1TAB61 PO (15:13)
--- NOTE | 2018-11-23 15:13 | PHYS DOC ---
Past Medical History Past Medical History: No Pertinent History Past Surgical History: No Surgical History Alcohol Use: None Drug Use: Marijuana Adult General Chief Complaint Chief Complaint: SORE THROAT HPI HPI Patient is a 38 year old female who presents with bilateral ear pain, sore throat, and dental pain. The pain has been ongoing for 3 days. Denies any associated symptoms. Rates her pain as 8 out of 10 in severity and throbbing. Review of Systems Review of Systems Constitutional: Denies fever or chills [] Eyes: Denies change in visual acuity, redness, or eye pain [] HENT: Denies nasal congestion but reports sore throat, ear pain, and tooth pain. Respiratory: Denies cough or shortness of breath [] Cardiovascular: No additional information not addressed in HPI [] GI: Denies abdominal pain, nausea, vomiting, bloody stools or diarrhea [] : Denies dysuria or hematuria [] Musculoskeletal: Denies back pain or joint pain [] Integument: Denies rash or skin lesions [] Neurologic: Denies headache, focal weakness or sensory changes [] Endocrine: Denies polyuria or polydipsia [] Complete systems were reviewed and found to be within normal limits, except as documented in this note. Current Medications Current Medications Current Medications Medications (Trade) Dose Ordered Sig/Christian Start Time Stop Time Status Last Admin Dose Admin Ketorolac Tromethamine (Toradol 30mg Vial) 30 mg 1X ONCE 11/23/18 15:15 11/23/18 15:16 Allergies Allergies Allergies Coded Allergies Type Severity Reaction Last Updated Verified No Known Drug Allergies 11/14/16 No Physical Exam Physical Exam Constitutional: Well developed, well nourished, no acute distress, non-toxic appearance. [] HENT: Normocephalic, atraumatic, bilateral external ears normal, tympanic membranes are slightly errythematous bilaterally, oropharynx moist, tonsils are 2+/4, nose normal. Appears to be tooth #30 has dental abscess. Eyes: PERRLA, EOMI, conjunctiva normal, no discharge. [] Neck: Normal range of motion, no tenderness, supple, no stridor. [] Cardiovascular:Heart rate regular rhythm, no murmur [] Lungs & Thorax: Bilateral breath sounds clear to auscultation [] Skin: Warm, dry, no erythema, no rash. [] Back: No tenderness, no CVA tenderness. [] Extremities: No tenderness, no cyanosis, no clubbing, ROM intact, no edema. [] Neurologic: Alert and oriented X 3, normal motor function, normal sensory function, no focal deficits noted. [] Psychologic: Affect normal, judgement normal, mood normal. [] Current Patient Data Vital Signs Vital Signs Date Time Temp Pulse Resp B/P (MAP) Pulse Ox O2 Delivery O2 Flow Rate FiO2 11/23/18 15:00 98.4 104 16 139/80 (99) 98 Room Air 98.4 EKG EKG [] Radiology/Procedures Radiology/Procedures [] Course & Med Decision Making Course & Med Decision Making Pertinent Labs and Imaging studies reviewed. (See chart for details) Discussed symptoms with patient and clinical exam. Appears to have dental abscess, throat is swollen and tympanic membrane is slightly red. Will prescribe Augmentin for dental abscess which would also cover Otitis Media and Strep. Dragon Disclaimer Dragon Disclaimer This electronic medical record was generated, in whole or in part, using a voice recognition dictation system. Departure Departure Impression: Primary Impression: Dental abscess Disposition: HOME, SELF-CARE Condition: STABLE Referrals: NO PCP (PCP) Patient Instructions: Dental Abscess Additional Instructions: Thank you for visiting [facility]. We appreciate you trusting us with your care. If any additional problems come up don't hesitate to return to visit us. Please follow up with your primary care provider so they can plan additional care if needed and know about the problem that you had. If symptoms worsen come back to the Emergency Department. Any concerning symptoms that start such as chest pain, shortness of air, weakness or numbness on one side of the body, running high fevers or any other concerning symptoms return to the ER. Scripts Amoxicillin/Potassium Clav (AUGMENTIN 875-125 TABLET) 1 Each Tablet 1 TAB PO BID for 7 Days, #14 TAB Prov: TARYN BATES APRN 11/23/18 TARYN BATES APRN Nov 23, 2018 15:13
[2018-11-23] MEDS ORDERED: KETOROLAC 30 MG/ML VIAL. IM ONE (15:15)
== END 2018-11-23 15:24 | disposition home or self-care (01) ==
LOC: ER 14:42
DX: K04.7 Periapical abscess without sinus (principal); H92.03 Otalgia, bilateral; J02.9 Acute pharyngitis, unspecified
CPT/HCPCS: 99283

== ENCOUNTER 2019-04-23 12:52 | Emergency (ER) | payer OTHER ==
[~2019-04-23] VITALS: Ht 154.9 cm; Wt 90.7 kg
[~2019-04-23 12:52] MED LIST changes: +AMOX1TAB61 PO
--- NOTE | 2019-04-23 13:40 | PHYS DOC ---
Past Medical History Past Medical History: No Pertinent History Past Surgical History: No Surgical History Alcohol Use: None Drug Use: Marijuana Adult General Chief Complaint Chief Complaint: SKIN PROBLEM [facility] Patient is a 38 year old AA female, accompanied by her son who presents to the emergency department with complaints of itchy irritated skin near her toes on both feet for about a week. Patient denies any bleeding, drainage, or crusting of the affected toes. Patient denies any new chemical exposures, lotions, soaps, or detergents. She currently rates her discomfort an 8 out of 10 on the pain scale describes it as intense itching. She denies any alleviating factors. All other ROS is neg unless otherwise noted in HPI. Review of Systems Review of Systems See Above Allergies Allergies Allergies Coded Allergies Type Severity Reaction Last Updated Verified No Known Drug Allergies 11/14/16 No Physical Exam Physical Exam See Above Constitutional: Well developed, well nourished, no acute distress, non-toxic appearance. [] HENT: Normocephalic, atraumatic, bilateral external ears normal, nose normal. [] Eyes: PERRLA, EOMI, conjunctiva normal, no discharge. [] Neck: Normal range of motion, no stridor. [] Cardiovascular:Heart rate regular rhythm Lungs & Thorax: Respirations even and unlabored, no retractions, no respiratory distress Skin: Warm, dry; erythemic, flaky, dry skin noted between crevices of was on bilateral feet consistent with tinea pedis, no active drainage or bleeding Extremities: No tenderness, no cyanosis, no clubbing, ROM intact, no edema. [] Neurologic: Alert and oriented X 3, no focal deficits noted. [] Psychologic: Affect normal, judgement normal, mood normal. [] Current Patient Data Vital Signs Vital Signs Date Time Temp Pulse Resp B/P (MAP) Pulse Ox O2 Delivery O2 Flow Rate FiO2 04/23/19 13:42 97.6 79 16 131/75 (93) 98 Room Air 97.6 EKG EKG [] Radiology/Procedures Radiology/Procedures [] Course & Med Decision Making Course & Med Decision Making Pertinent Labs and Imaging studies reviewed. (See chart for details) Discussed athlete's foot diagnosis with the patient, recommended over the counter Tinactin spray. Encourage patient to leave feet open to the air when not required to wear shoes. Make sure to dry feet thoroughly after bathing. Follow- up with primary care doctor symptoms persist. Return to the ER symptoms worsen. Pt verbalized an understanding of home care, medications, follow-up, and return to ED instructions and was in agreement with the plan of care. [] Dragon Disclaimer Dragon Disclaimer This electronic medical record was generated, in whole or in part, using a voice recognition dictation system. Departure Departure Impression: Primary Impression: Athlete's foot Disposition: HOME, SELF-CARE Condition: STABLE Referrals: NO PCP (PCP) Problem Qualifiers Primary Impression: Athlete's foot Laterality: bilateral Qualified Codes: B35.3 - ELIZABETH Guzman CONSULAR OFFICER Apr 23, 2019 13:40
[2019-04-23 13:42] VITALS: BP 131/75
== END 2019-04-23 13:45 | disposition home or self-care (01) ==
LOC: ER 12:52
DX: B35.3 Tinea pedis (principal)
CPT/HCPCS: 99281

== ENCOUNTER 2019-12-29 20:56 | Emergency (ER) | payer OTHER ==
[~2019-12-29] VITALS: Ht 154.9 cm; Wt 81.8 kg
[2019-12-29 22:01] VITALS: BP 135/89
--- NOTE | 2019-12-29 23:05 | PHYS DOC ---
Past Medical History Past Medical History: No Pertinent History (ELIZABETH TRACY APRN) Past Surgical History: No Surgical History (ELIZABETH TRACY APRN) Smoking Status: Current Every Day Smoker Alcohol Use: None Drug Use: Marijuana (ELIZABETH TRACY APRN) General Adult EDM: Chief Complaint: LOWER EXT PAIN HPI: HPI: Patient is a 39 year old female who presents to the emergency department with complaints of bilateral foot pain for 2 weeks and dark spots on both of her feet that have been draining clear fluid when she squeezes on them for the last week. She also reports discoloration of the toenails on both of her feet and bilateral foot itching. She denies any chemical exposure or lorenz. She denies any fever, body aches, numbness, tingling, or decreased sensation in her feet. She currently rates her pain a 10 out of 10 on the pain scale, she denies any alleviating factors, the pain is worse if she is weightbearing or touches the affected areas. (ELIZABETH TRACY APRN) Review of Systems: Review of Systems: Constitutional: Denies fever or chills. [] Musculoskeletal: Denies back pain or joint pain. [] Integument: See HPI Neurologic: Denies focal weakness or sensory changes. [] Psychiatric: Denies depression or anxiety. [] (ELIZABETH TRACY APRN) Heart Score: Risk Factors: Risk Factors: DM, Current or recent (<one month) smoker, HTN, HLP, family history of CAD, obesity. Risk Scores: Score 0 - 3: 2.5% MACE over next 6 weeks - Discharge Home Score 4 - 6: 20.3% MACE over next 6 weeks - Admit for Clinical Observation Score 7 - 10: 72.7% MACE over next 6 weeks - Early Invasive Strategies (ELIZABETH TRACY APRN) Allergies: Allergies: Allergies Coded Allergies Type Severity Reaction Last Updated Verified No Known Drug Allergies 11/14/16 No (ELIZABETH TRACY APRN) Physical Exam: PE: Constitutional: Well developed, well nourished, no acute distress, non-toxic appearance, obese. [] HENT: Normocephalic, atraumatic, bilateral external ears normal, nose normal. [] Eyes: PERRLA, EOMI, conjunctiva normal, no discharge. [] Neck: Normal range of motion, no stridor. [] Cardiovascular:Heart rate regular rhythm Lungs & Thorax: Respirations even and unlabored, no retractions, no respiratory distress Skin: Warm, dry; plantar surface of bilateral feet has heavy amount of calluses with dark brown circular areas consistent with plantars warts; bilateral webbing of toes is scaly, cracked, and erythemic without drainage consistent with tinea pedis; bilateral toenails are thickened with yellow discoloration consistent with a toenail fungus. Extremities: Bilateral feet: No cyanosis, no bony tenderness, ROM intact, no edema. [] Neurologic: Alert and oriented X 3, no focal deficits noted. [] Psychologic: Affect normal, judgement normal, mood normal. [] (ELIZABETH TRACY APRN) Current Patient Data: Vital Signs: Vital Signs Date Time Temp Pulse Resp B/P (MAP) Pulse Ox O2 Delivery O2 Flow Rate FiO2 12/29/19 22:01 98.8 94 20 135/89 (104) 97 Room Air 98.8 (ELIZABETH TRACY APRN) EKG: EKG: [] (ELIZABETH TRACY APRN) Radiology/Procedures: Radiology/Procedures: [] (ELIZABETH TRACY APRN) Course & Med Decision Making: Course & Med Decision Making Pertinent Labs and Imaging studies reviewed. (See chart for details) After exam and evaluation of this patient I advised her that she has athlete's foot of bilateral feet and possible plantars warts. I advised her that she needs to try an [id number] antifungal such as Lamisil for treatment of the athlete's foot. I informed her that it is likely that she will need to be evaluated and treated by a household coordinator as the extent of the athlete's foot and the plantars warts is great and will likely require treatment by a specialist. The patient left the department with only verbal discharge instructions provided, she left prior to written discharge instructions being given. [] (ELIZABETH TRACY APRN) Dragon Disclaimer: Dragon Disclaimer: This electronic medical record was generated, in whole or in part, using a voice recognition dictation system. (ELIZABETH TRACY APRN) Departure Departure Impression: Primary Impression: Athlete's foot Qualified Codes: B35.3 - Tinea pedis Additional Impression: Bilateral plantar wart Disposition: HOME, SELF-CARE Condition: STABLE Referrals: NO PCP (PCP) MALLORIE CANTU DPM Patient Instructions: Athlete's Foot, [id number], Plantar Fasciitis (Heel Spur Syndrome) with [facility] Additional Instructions: Recommend [id number] antifungal such as Lamisil for treatment of athlete's foot. Follow-up with a household coordinator, Dr. Cantu's information has been provided. Return to the ER if symptoms worsen. Justicifation of Admission Dx: Justifications for Admission: Justification of Admission Dx: N/A (ELIZABETH TRACY APRN) Attending Signature Attending Signature I have reviewed the PA/RETAIL MANAGER IN TRAINING's note and plan of care. I was available for consultation as needed during the patient's visit in the emergency department. I agree with the clinical impression, plan, and disposition. (TARYN PITTS DO) ELIZABETH TRACY APRN Dec 29, 2019 23:05 TARYN PITTS DO Dec 30, 2019 01:48
== END 2019-12-29 23:01 | disposition home or self-care (01) ==
LOC: ER 20:56
DX: B35.3 Tinea pedis (principal); B07.0 Plantar wart; F17.200 Nicotine dependence, unspecified, uncomplicated
CPT/HCPCS: 99282

== ENCOUNTER 2020-01-02 08:32 | Emergency (ER) | payer OTHER ==
[~2020-01-02] VITALS: Ht 154.9 cm; Wt 80.0 kg
[2020-01-02 08:40] VITALS: BP 157/89
[2020-01-02] MEDS ORDERED: KETOROLAC 60 MG/2 ML VIAL. IM ONE (09:00)
--- NOTE | 2020-01-02 09:03 | PHYS DOC ---
Past Medical History Past Medical History: No Pertinent History Past Surgical History: No Surgical History Smoking Status: Current Every Day Smoker Alcohol Use: None Drug Use: Marijuana General Adult EDM: Chief Complaint: TOE PROBLEM HPI: HPI: Patient is a 39-year-old female who presents with severe right great toe pain. She does not recall injuring the toe. She states the pain became so bad yesterday that she has been unable to walk on it. She states she has chronically infected toenails but this is no different than it has been in the past. She is never had gout in the past. She said the pain is sharp and occurs on the inside of the right great toe [] Review of Systems: Review of Systems: Constitutional: Denies fever or chills. [] Eyes: Denies change in visual acuity. [] HENT: Denies nasal congestion or sore throat. [] Respiratory: Denies cough or shortness of breath. [] Cardiovascular: Denies chest pain or edema. [] GI: Denies abdominal pain, nausea, vomiting, bloody stools or diarrhea. [] : Denies dysuria. [] Musculoskeletal: Reports right great toe pain. [] Integument: Reports chronic fungus to the toenails. [] Neurologic: Denies headache, focal weakness or sensory changes. [] Endocrine: Denies polyuria or polydipsia. [] Lymphatic: Denies swollen glands. [] Psychiatric: Reports anxiety. [] Heart Score: Risk Factors: Risk Factors: DM, Current or recent (<one month) smoker, HTN, HLP, family history of CAD, obesity. Risk Scores: Score 0 - 3: 2.5% MACE over next 6 weeks - Discharge Home Score 4 - 6: 20.3% MACE over next 6 weeks - Admit for Clinical Observation Score 7 - 10: 72.7% MACE over next 6 weeks - Early Invasive Strategies Current Medications: Current Medications Medications (Trade) Dose Ordered Sig/Christian Start Time Stop Time Status Last Admin Dose Admin Ketorolac Tromethamine (Toradol Im) 60 mg 1X ONCE 01/02/20 09:00 01/02/20 09:01 Allergies: Allergies: Allergies Coded Allergies Type Severity Reaction Last Updated Verified No Known Drug Allergies 11/14/16 No Physical Exam: PE: Constitutional: Well developed, well nourished, mild to moderate distress, non- toxic appearance. [] HENT: Normocephalic, atraumatic, bilateral external ears normal, oropharynx moist, no oral exudates, nose normal. [] Eyes: PERRLA, EOMI, conjunctiva normal, no discharge. [] Neck: Normal range of motion, no tenderness, supple, no stridor. [] Cardiovascular:Heart rate regular rhythm, no murmur [] Lungs & Thorax: Bilateral breath sounds clear to auscultation [] Abdomen: Bowel sounds normal, soft, no tenderness, no masses, no pulsatile masses. [] Skin: Warm, dry, no erythema, no rash. [] Back: No tenderness, no CVA tenderness. [] Extremities: Right great toe is very tender mildly swollen no significant e rythema decreased range of motion secondary to pain no obvious deformity [] Neurologic: Alert and oriented X 3, normal motor function, normal sensory function, no focal deficits noted. [] Psychologic: Anxious [] Current Patient Data: Vital Signs: Vital Signs Date Time Temp Pulse Resp B/P (MAP) Pulse Ox O2 Delivery O2 Flow Rate FiO2 01/02/20 08:40 98.7 85 16 157/89 (111) 98 Room Air 98.7 EKG: EKG: [] Radiology/Procedures: Radiology/Procedures: []REASON: right great toe pain PROCEDURE: TOES RIGHT Examination: TOES RIGHT History: Reason: right great toe pain / Spl. Instructions: / History: Comparison/Correlation: None Findings: A total of 3 images of the right great toe were obtained including AP view of the right foot. Mild remodeling of the right first metatarsophalangeal joint is present. No fracture or bone destruction. Soft tissues are unremarkable. Other joint spaces are unremarkable. Impression: First metatarsophalangeal joint remodeling is present and advanced for patient's age. Course & Med Decision Making: Course & Med Decision Making Pertinent Labs and Imaging studies reviewed. (See chart for details) [] Dragon Disclaimer: Warren Disclaimer: This electronic medical record was generated, in whole or in part, using a voice recognition dictation system. Departure Departure Impression: Primary Impression: Gout attack Qualified Codes: M10.071 - Idiopathic gout, right ankle and foot Additional Impression: Tinea pedis of both feet Disposition: 01 HOME, SELF-CARE Condition: STABLE Referrals: NO PCP (PCP) Patient Instructions: Gout, Ringworm - Nail Additional Instructions: I recommend following up with a clinical trials specialist at your earliest convenience. Take all medication as directed. Return to the emergency department with any new or concerning symptoms. Also, use Lotrimin ultra twice daily on all your toes for the next 2 weeks. Scripts Prednisone (PREDNISONE) 20 Mg Tablet 1 TAB PO TID PRN for GOUT for 5 Days, #15 TAB Prov: CASIE STOKES DO 01/02/20 Clindamycin Hcl (CLINDAMYCIN HCL) 300 Mg Capsule 1 CAP PO TID for Infection, #30 CAP Prov: CASIE STOKES DO 01/02/20 Justicifation of Admission Dx: Justifications for Admission: Justification of Admission Dx: No CASIE STOKES DO Jan 02, 2020 09:03
--- NOTE | 2020-01-02 09:22 | RAD ---
Examination: TOES RIGHT History: Reason: right great toe pain / Spl. Instructions: / History: Comparison/Correlation: None Findings: A total of 3 images of the right great toe were obtained including AP view of the right foot. Mild remodeling of the right first metatarsophalangeal joint is present. No fracture or bone destruction. Soft tissues are unremarkable. Other joint spaces are unremarkable. Impression: First metatarsophalangeal joint remodeling is present and advanced for patient's age. Electronically signed by: Jay Boss MD (01/02/2020 9:20 AM) [id number]
[2020-01-02] MEDS ORDERED: CLIN300C8 PO (09:23)
[2020-01-02] MEDS ORDERED: PRED20TA PO (09:23)
== END 2020-01-02 10:02 | disposition home or self-care (01) ==
LOC: ER 08:32
DX: M10.071 Idiopathic gout, right ankle and foot (principal); B35.3 Tinea pedis; F17.200 Nicotine dependence, unspecified, uncomplicated; F12.90 Cannabis use, unspecified, uncomplicated
CPT/HCPCS: 73660; 96372; 99283; J1885

== ENCOUNTER 2020-05-24 06:11 | Emergency (ER) | payer OTHER ==
[~2020-05-24] VITALS: Ht 154.9 cm; Wt 88.8 kg
[~2020-05-24 06:11] MED LIST changes: +CLIN300C9 PO; +PRED20TA PO
[2020-05-24 06:15] VITALS: BP 149/71
--- NOTE | 2020-05-24 06:20 | PHYS DOC ---
Past Medical History Past Medical History: No Pertinent History Past Surgical History: No Surgical History Smoking Status: Current Every Day Smoker Alcohol Use: None Drug Use: Marijuana General Adult EDM: Chief Complaint: DENTAL PROBLEM HPI: HPI: Patient is a 39 year old female presents with left lower molar pain with radiation to left ear x1 month. Patient reports has been worse over the last couple days. Patient reports she has been taking 800 mg of ibuprofen without relief. Denies any fever or chills. Patient reports she thinks that her "filling has broken off ". Patient reports she just got off work and had her bring her to the emergency department for evaluation. Review of Systems: Review of Systems: Constitutional: Denies fever or chills Eyes: Denies redness or eye pain HENT: Denies nasal congestion or sore throat; reports dentalgia Respiratory: Denies cough or shortness of breath Cardiovascular: Denies chest pain or palpitations GI: Denies abdominal pain, nausea, or vomiting : Denies dysuria or hematuria Musculoskeletal: Denies back pain or joint pain Integument: Denies rash or skin lesions Neurologic: Denies headache, focal weakness or sensory changes Complete systems were reviewed and found to be within normal limits, except as documented in this note. Allergies: Allergies: Allergies Coded Allergies Type Severity Reaction Last Updated Verified No Known Drug Allergies 11/14/16 No Physical Exam: PE: Constitutional: Well developed, well nourished, no acute distress, non-toxic appearance HENT: Normocephalic, atraumatic, severe dental billie to left mandibular 2nd molar with lateral enamel missing, no drainable abscess noted. Eyes: Conjunctiva normal, no discharge Neck: Normal range of motion, no tenderness, supple Lungs & Thorax: No respiratory distress, equal chest rise and fall Skin: Warm, dry, no erythema, no rash Extremities: No tenderness, no edema Neurologic: Alert and oriented X 3, no focal deficits noted Psychologic: Affect normal, judgment normal EKG: EKG: [] Radiology/Procedures: Radiology/Procedures: [] Course & Med Decision Making: Course & Med Decision Making Patient presents with report of dentalgia x30 days which has become worse over the last 2 days. Severe dental caries with dental fracture appreciated. No drainable abscess noted. Symptomatic treatment provided. Empiric antibiotic initiated. Patient stable for discharge with outpatient follow-up with PCP/dentist. Dental resources provided. Discussed findings and plan with patient, who acknowledges understanding and agreement. Warren Disclaimer: Warren Disclaimer: This electronic medical record was generated, in whole or in part, using a voice recognition dictation system. Departure Departure Impression: Primary Impression: Dentalgia Additional Impression: Dental caries Disposition: 01 DC HOME SELF CARE/HOMELESS Condition: STABLE Referrals: NO PCP (PCP) Patient Instructions: Dental Caries, Toothache-Brief Scripts Hydrocodone Bit/Acetaminophen (HYDROCODONE-APAP 5-325 ) 1 Tab Tablet 0.5-1 TAB PO PRN Q6HRS PRN for PAIN, #10 TAB 0 Refills Prov: TARYN PITTS DO 05/24/20 Chlorhexidine Gluconate (PERIDEX) 15 Ml Mouthwash 15 ML PO BID for 7 Days, #473 ML 0 Refills Prov: TARYN PITTS DO 05/24/20 Prednisone (PREDNISONE) 20 Mg Tablet 2 TAB PO DAILY for 4 Days, #8 TAB Start this prescription tomorrow, 05/25/20 Prov: TARYN PITTS DO 05/24/20 Amoxicillin/Potassium Clav (AUGMENTIN 875-125 TABLET) 1 Each Tablet 1 TAB PO BID for 7 Days, #14 TAB Prov: TARYN PITTS DO 05/24/20 TARYN PITTS DO May 24, 2020 06:20
[2020-05-24] MEDS ORDERED: CHLO15MO2 PO (06:35)
[2020-05-24] MEDS ORDERED: HYDR-2761 PO (06:35)
[2020-05-24] MEDS ORDERED: PRED20TA PO (06:35)
[2020-05-24] MEDS ORDERED: AMOX1TAB61 PO (06:35)
[2020-05-24] MEDS ORDERED: HYDROcodone/APAP 5/325MG 1 TAB TABLET PO ONE (07:00)
[2020-05-24] MEDS ORDERED: AMOXICILLIN/K CLAV 875/125MG TABLET. PO ONE (07:00)
[2020-05-24] MEDS ORDERED: DEXAMETHASONE 4 MG TABLET PO ONE (07:00)
[2020-05-25] MEDS ORDERED: BENZ57SP MM (01:17)
== END 2020-05-24 06:50 | disposition home or self-care (01) ==
LOC: ER 06:11
DX: K02.9 Dental caries, unspecified (principal); K08.89 Other specified disorders of teeth and supporting structures; F17.200 Nicotine dependence, unspecified, uncomplicated
CPT/HCPCS: 99284

== ENCOUNTER 2020-05-25 00:13 | Emergency (ER) | payer OTHER ==
[~2020-05-25] VITALS: Ht 154.9 cm; Wt 86.0 kg
[~2020-05-25 00:13] MED LIST changes: +CHLO15MO2 PO; +HYDR-2761 PO
[2020-05-25 00:20] VITALS: BP 135/85
--- NOTE | 2020-05-25 00:55 | ED.ADGEN ---
Past Medical History Past Medical History: No Pertinent History Past Surgical History: No Surgical History Smoking Status: Current Every Day Smoker Additional Information: 1PK/DAY Alcohol Use: None Drug Use: Marijuana General Adult EDM: Chief Complaint: DENTAL PROBLEM HPI: HPI: Patient is a 39 year old female presenting with right-sided facial pain secondary to dental infection. Patient was seen in this emergency department 18 hours prior to arrival and given a prescription for Augmentin, [place], and a steroid. Patient states she has had 2 doses of the Augmentin. Patient states the pain is worsening pain medications 6 hours ago. Denies any new symptoms Review of Systems: Review of Systems: All other systems within normal limits except for as noted in the HPI Current Medications: Current Medications Medications (Trade) Dose Ordered Sig/Christian Start Time Stop Time Status Last Admin Dose Admin Benzocaine (Hurricaine One) 1 spray 1X ONCE 05/25/20 01:00 05/25/20 01:01 DC 05/25/20 01:05 1 SPRAY Ketorolac Tromethamine (Toradol Im) 60 mg 1X ONCE 05/25/20 01:30 05/25/20 01:31 05/25/20 01:06 60 MG Allergies: Allergies: Allergies Coded Allergies Type Severity Reaction Last Updated Verified No Known Drug Allergies 11/14/16 No Physical Exam: PE: Constitutional: Well developed, well nourished, no acute distress, non-toxic appearance. [] HENT: Normocephalic, atraumatic, bilateral external ears normal, oropharynx moist, no oral exudates, nose normal. Multiple dental caries in the molars. No signs of abscess or facial swelling. TMs normal [] Eyes: PERRLA, EOMI, conjunctiva normal, no discharge. [] Neck: Normal range of motion, no tenderness, supple, no stridor. [] Cardiovascular:Heart rate regular rhythm, no murmur [] Lungs & Thorax: Bilateral breath sounds clear to auscultation [] Abdomen: Bowel sounds normal, soft, no tenderness, no masses, no pulsatile masses. [] Skin: Warm, dry, no erythema, no rash. [] Back: No tenderness, no CVA tenderness. [] Extremities: No tenderness, no cyanosis, no clubbing, ROM intact, no edema. [] Neurologic: Alert and oriented X 3, normal motor function, normal sensory function, no focal deficits noted. [] Psychologic: Affect normal, judgement normal, mood normal. [] Current Patient Data: Vital Signs: Vital Signs Date Time Temp Pulse Resp B/P (MAP) Pulse Ox O2 Delivery O2 Flow Rate FiO2 05/25/20 00:20 98.1 93 18 135/85 (102) 99 Room Air 98.1 EKG: EKG: [] Heart Score: Risk Factors: Risk Factors: DM, Current or recent (<one month) smoker, HTN, HLP, family hist ory of CAD, obesity. Risk Scores: Score 0 - 3: 2.5% MACE over next 6 weeks - Discharge Home Score 4 - 6: 20.3% MACE over next 6 weeks - Admit for Clinical Observation Score 7 - 10: 72.7% MACE over next 6 weeks - Early Invasive Strategies Radiology/Procedures: Radiology/Procedures: [] Course & Med Decision Making: Course & Med Decision Making Pertinent Labs and Imaging studies reviewed. (See chart for details) [] Dragon Disclaimer: Dragon Disclaimer: This electronic medical record was generated, in whole or in part, using a voice recognition dictation system. Departure Departure Impression: Primary Impression: Dental infection Disposition: 01 DC HOME SELF CARE/HOMELESS Condition: STABLE Referrals: NO PCP (PCP) Patient Instructions: Dental Abscess Additional Instructions: Follow-up with a dentist from the list provided Scripts Benzocaine (HURRICAINE) 57 Gm Neely 57 GM MM PRN Q6HRS PRN for PAIN for 5 Days, #57 GM Prov: WILFREDO GMÓEZ MD 05/25/20 WILFREDO GÓMEZ MD May 25, 2020 00:55
[2020-05-25] MEDS ORDERED: BENZOCAINE ONE 20% MUCOSAL SPRAY. MM (01:00)
[2020-05-25] MEDS ORDERED: BENZ57SP MM (01:17)
[2020-05-25] MEDS ORDERED: KETOROLAC 60 MG/2 ML VIAL. IM ONE (01:30)
== END 2020-05-25 01:37 | disposition home or self-care (01) ==
LOC: ER 00:13
DX: K04.7 Periapical abscess without sinus (principal); R51.9 Headache, unspecified; F17.200 Nicotine dependence, unspecified, uncomplicated; F12.90 Cannabis use, unspecified, uncomplicated
CPT/HCPCS: 96372; 99283; J1885

== ENCOUNTER 2020-12-16 15:01 | Emergency (ER) | payer OTHER ==
[~2020-12-16] VITALS: Ht 157.5 cm; Wt 81.8 kg
[~2020-12-16 15:01] MED LIST changes: +BENZ57SP MM; +METH5TAB6 PO
--- NOTE | 2020-12-16 15:54 | RAD ---
EXAM: Chest, single view. HISTORY: Chest wall pain. COMPARISON: 11/19/2020 FINDINGS: A frontal view of the chest is obtained. There is no infiltrate, pleural effusions or pneum othorax. The heart is normal in size. IMPRESSION: No acute pulmonary finding. Electronically signed by: Jacinta Gill MD (12/16/2020 3:52 PM) [facility]
[2020-12-16] MEDS ORDERED: KETOROLAC 60 MG/2 ML VIAL. IM ONE (16:15)
[2020-12-16 16:40] VITALS: BP 121/70
[2020-12-16] MEDS ORDERED: IBUPROFEN 400 MG TABLET. PO ONE (16:45)
--- NOTE | 2020-12-16 17:03 | PHYS DOC ---
Past Medical History Past Medical History: No Pertinent History Additional Past Medical Histor: THYROID MASS Past Surgical History: No Surgical History Smoking Status: Current Every Day Smoker Alcohol Use: Occasionally Drug Use: Marijuana General Adult EDM: Chief Complaint: BACK PAIN OR INJURY HPI: HPI: Patient is a 40 year old female who presented to the ER for evaluation of muscle pain on her shoulders bilaterally. She denied any injury. The symptoms has been going on for several days. Patient denies any chest pain, no abdominal pain, no nausea vomiting. Patient denies any fever or cough. Patient denies any headache, notes neck pain. Review of Systems: Review of Systems: Constitutional: Denies fever or chills. [] Eyes: Denies change in visual acuity. [] HENT: Denies nasal congestion or sore throat. [] Respiratory: Denies cough or shortness of breath. [] Cardiovascular: Denies chest pain or edema. [] GI: Denies abdominal pain, nausea, vomiting, bloody stools or diarrhea. [] : Denies dysuria. [] Musculoskeletal: Denies back pain or joint pain. Positive for muscle pain. Integument: Denies rash. [] Neurologic: Denies headache, focal weakness or sensory changes. [] Endocrine: Denies polyuria or polydipsia. [] Lymphatic: Denies swollen glands. [] Psychiatric: Denies depression or anxiety. [] Heart Score: C/O Chest Pain: N/A Risk Factors: Risk Factors: DM, Current or recent (<one month) smoker, HTN, HLP, family history of CAD, obesity. Risk Scores: Score 0 - 3: 2.5% MACE over next 6 weeks - Discharge Home Score 4 - 6: 20.3% MACE over next 6 weeks - Admit for Clinical Observation Score 7 - 10: 72.7% MACE over next 6 weeks - Early Invasive Strategies Current Medications: Current Medications Medications (Trade) Dose Ordered Sig/Christian Start Time Stop Time Status Last Admin Dose Admin Ibuprofen (Motrin) 800 mg 1X ONCE 12/16/20 16:45 12/16/20 16:46 DC 12/16/20 16:48 800 MG Ketorolac Tromethamine (Toradol Im) 60 mg 1X ONCE 12/16/20 16:15 12/16/20 16:39 DC Allergies: Allergies: Allergies Coded Allergies Type Severity Reaction Last Updated Verified No Known Drug Allergies 11/14/16 No Physical Exam: PE: Constitutional: Well developed, well nourished, no acute distress, non-toxic appearance. [] HENT: Normocephalic, atraumatic, bilateral external ears normal, oropharynx moist, no oral exudates, nose normal. [] Eyes: PERRLA, EOMI, conjunctiva normal, no discharge. [] Neck: Normal range of motion, no tenderness, supple, no stridor. [] Cardiovascular:Heart rate regular rhythm, no murmur [] Lungs & Thorax: Bilateral breath sounds clear to auscultation [] Abdomen: Bowel sounds normal, soft, no tenderness, no masses, no pulsatile masses. [] Skin: Warm, dry, no erythema, no rash. [] Back: No tenderness, no CVA tenderness. [] Extremities: No tenderness, no cyanosis, no clubbing, ROM intact, no edema. [] Neurologic: Alert and oriented X 3, normal motor function, normal sensory function, no focal deficits noted. [] Psychologic: Affect normal, judgement normal, mood normal. [] Current Patient Data: Labs: Laboratory Tests Test 12/16/20 15:12 POC Urine HCG, Qualitative Hcg negative (Negative) Vital Signs: Vital Signs Date Time Temp Pulse Resp B/P (MAP) Pulse Ox O2 Delivery O2 Flow Rate FiO2 12/16/20 15:10 97.6 111 15 138/81 (91) 98 Room Air 97.6 EKG: EKG: [] Radiology/Procedures: Radiology/Procedures: [facility] [address] [place] [address] IMAGING REPORT Signed PATIENT: KEZIA COLLINS ACCOUNT: [id number] : 1980 LOCATION: ER AGE: 40 SEX: F EXAM STATUS: PRE ER ORD. PHYSICIAN: CLEMENTINA JOHNSON DO REASON: UPPER CHEST WALL PAIN PROCEDURE: CHEST AP ONLY EXAM: Chest, single view. HISTORY: Chest wall pain. COMPARISON: 11/19/2020 FINDINGS: A frontal view of the chest is obtained. There is no infiltrate, pleural effusions or pneumothorax. The heart is normal in size. IMPRESSION: No acute pulmonary finding. Electronically signed by: Jacinta Gill MD (12/16/2020 3:52 PM) [facility] DICTATED and SIGNED BY: JACINTA GILL MD DATE: 12/16/20 [id number] Course & Med Decision Making: Course & Med Decision Making Pertinent Labs and Imaging studies reviewed. (See chart for details) [] Dragon Disclaimer: Dragon Disclaimer: This electronic medical record was generated, in whole or in part, using a voice recognition dictation system. Departure Departure Impression: Primary Impression: Myalgia Disposition: HOME / SELF CARE / HOMELESS Condition: STABLE Referrals: NO PCP (PCP) Patient Instructions: Myalgia, Adult Additional Instructions: Thank you for visiting our Emergency Department. We appreciate you trusting us with your care. If any additional problems come up don't hesitate to return to visit us. Please follow up with your primary care provider so they can plan additional care if needed and know about the problem that you had. If symptoms worsen come back to the Emergency Department. Any concerning symptoms that start such as chest pain, shortness of air, weakness or numbness on one side of the body, running high fevers or any other concerning symptoms return to the ER. CLEMENTINA JOHNSON DO Dec 16, 2020 17:03
== END 2020-12-16 17:11 | disposition home or self-care (01) ==
LOC: ER 15:01
DX: M25.511 Pain in right shoulder (principal); M25.512 Pain in left shoulder; R07.89 Other chest pain; F17.200 Nicotine dependence, unspecified, uncomplicated
CPT/HCPCS: 71045; 81025; 99283

== ENCOUNTER 2021-01-08 07:20 | Observation (INO) | payer OTHER ==
[~2021-01-08] VITALS: Ht 154.9 cm; Wt 82.5 kg
[~2021-01-08 07:20] MED LIST changes: +CLIN-94 PO; -CLIN300C9 PO
[2021-01-08] MEDS ORDERED: MORPHINE SULFATE 10 MG/ML VIAL. IV ONE (07:45)
[2021-01-08] MEDS ORDERED: IV NORMAL SALINE 1000ML BAG 1,000 ML IV SCH (07:45)
--- NOTE | 2021-01-08 07:45 | PHYS DOC ---
Past Medical History Additional Past Medical Histor: THYROID MASS Past Surgical History: No Surgical History Smoking Status: Current Every Day Smoker Alcohol Use: Occasionally Drug Use: Marijuana General Adult EDM: Chief Complaint: WEAKNESS/GENERALIZED HPI: HPI: 40-year-old female with a history of thyroid mass presents to the emergency department complaining of left-sided neck pain, numbness in the left hand and left foot without motor changes for the past 6 hours. She reports 6 hours ago the symptoms started and have not subsided. She denies any trouble with her face including no numbness or weakness of the face. She reports that her thyroid mass is benign, but it is pushing on her trachea, and also affects her vertebral artery. She complains of pain in this area that is moderate. He also complains of some blood in her urine. Her last menstrual cycle was approximately 1 week ago. The patient denies nausea, vomiting, fever, chills, chest pain, shortness of breath, abdominal pain, urinary symptoms, cough, recent trauma, or any other complaints. Review of Systems: Review of Systems: Constitutional: Denies fever or chills. Eyes: Denies change in vision, pain. HENT: Denies congestion or sore throat. Neck: Admits to neck pain and left side, denies any trauma Respiratory: Denies cough or shortness of breath. Cardiovascular: Denies chest pain or edema. GI: Denies abdominal pain, nausea. : Admits to bloody urine, denies dysuria. Musculoskeletal: Denies extremity pain, or trauma. Skin: Denies rash, skin change. Neurologic: Denies headache, focal weakness. Denies numbness of the left hand and left foot Psychiatric: Denies depression or anxiety. All other systems reviewed as negative except for what was mentioned in the HPI. Heart Score: C/O Chest Pain: No HEART Score for Chest Pain: HEART Score for Chest Pain Response (Comments) Value History Moderately Suspicious 1 ECG Normal 0 Age < 45 0 Risk Factors 1 or 2 Risk Factors 1 Troponin < Normal Limit 0 Total 2 Allergies: Allergies: Allergies Coded Allergies Type Severity Reaction Last Updated Verified No Known Drug Allergies 11/14/16 No Physical Exam: PE: Constitutional: No acute distress, non-toxic appearance. HENT: Atraumatic, bilateral external ears normal, nose normal. Eyes: PERRLA, EOMI, conjunctiva normal, no discharge. Neck: Normal range of motion, supple, no stridor. Cardiovascular: Heart rate regular rhythm. 2+ radial pulses Lungs & Thorax: No respiratory distress, symmetrical expansion. Bilateral breath sounds clear to auscultation Abdomen: Soft, no tenderness Skin: Warm, dry. Extremities: No tenderness, no cyanosis, ROM intact, no edema. Neurologic: Alert and oriented X 3, normal motor function, patient complains of abnormal sensation on the left foot and left hand compared to the right on exam, no focal deficits noted. Non ataxic gait. GCS 15. No dysdiadochokinesia, no pronator drift, [id number] intact Psychologic: Affect normal, judgment normal, mood normal. Current Patient Data: Labs: Laboratory Tests Test 01/08/21 08:11 01/08/21 09:19 Urine Collection Type Void Urine Color Rose Marie Urine Clarity Cloudy Urine pH 6.0 (<5.0-8.0) Urine Specific [place] 1.020 (1.000-1.030) Urine Protein 30 mg/dL (NEG-TRACE) Urine Glucose (UA) Negative mg/dL (NEG) Urine Ketones (Stick) 15 mg/dL (NEG) Urine Blood Large (NEG) Urine Nitrite Negative (NEG) Urine Bilirubin Negative (NEG) Urine Urobilinogen Dipstick 1.0 mg/dL (0.2 mg/dL) Urine Leukocyte Esterase Small (NEG) Urine RBC 6-10 /HPF (0-2) Urine WBC 11-20 /HPF (0-4) Urine Squamous Epithelial Cells Many /LPF Urine Bacteria Many /HPF (0-FEW) Urine Mucus Marked /LPF Urine Test Negative (NEG) White Blood Count 6.2 x10^3/uL (4.0-11.0) Red Blood Count 4.10 x10^6/uL (3.50-5.40) Hemoglobin 13.9 g/dL (12.0-15.5) Hematocrit 39.6 % (36.0-47.0) Mean Corpuscular Volume 97 fL (79-100) Mean Corpuscular Hemoglobin 34 pg (25-35) Mean Corpuscular Hemoglobin Concent 35 g/dL (31-37) Red Cell Distribution Width 14.6 % (11.5-14.5) Platelet Count 258 x10^3/uL (140-400) Neutrophils (%) (Auto) 50 % (31-73) Lymphocytes (%) (Auto) 39 % (24-48) Monocytes (%) (Auto) 9 % (0-9) Eosinophils (%) (Auto) 1 % (0-3) Basophils (%) (Auto) 1 % (0-3) Neutrophils # (Auto) 3.1 x10^3/uL (1.8-7.7) Lymphocytes # (Auto) 2.4 x10^3/uL (1.0-4.8) Monocytes # (Auto) 0.6 x10^3/uL (0.0-1.1) Eosinophils # (Auto) 0.1 x10^3/uL (0.0-0.7) Basophils # (Auto) 0.1 x10^3/uL (0.0-0.2) Sodium Level 137 mmol/L (136-145) Potassium Level 3.8 mmol/L (3.5-5.1) Chloride Level 101 mmol/L (98-107) Carbon Dioxide Level 28 mmol/L (21-32) Anion Gap 8 (6-14) Blood Urea Nitrogen 9 mg/dL (7-20) Creatinine 0.7 mg/dL (0.6-1.0) Estimated GFR (Cockcroft-Gault) 112.1 Glucose Level 95 mg/dL (70-99) Calcium Level 9.1 mg/dL (8.5-10.1) Magnesium Level 2.1 mg/dL (1.8-2.4) Troponin I Quantitative < 0.017 ng/mL (0.000-0.055) GG-Ljq-I-Type Natriuretic Peptide 9 pg/mL (0-124) Thyroid Stimulating Hormone (TSH) 0.377 uIU/mL (0.358-3.74) Vital Signs: Vital Signs Date Time Temp Pulse Resp B/P (MAP) Pulse Ox O2 Delivery O2 Flow Rate FiO2 01/08/21 13:47 Room Air 01/08/21 13:05 114 137/78 (97) 97 Room Air 01/08/21 12:43 110 11 145/84 (104) 95 Room Air 01/08/21 12:13 110 18 145/89 (107) 99 Room Air 01/08/21 11:43 110 13 156/96 (116) 97 Room Air 01/08/21 11:13 162/93 (116) Room Air 01/08/21 10:48 102 22 148/86 (106) 98 Room Air 01/08/21 10:42 16 96 Room Air 01/08/21 10:33 106 20 140/89 (106) 98 Room Air 01/08/21 10:18 102 18 147/92 (110) 97 Room Air 01/08/21 10:12 16 99 Room Air 01/08/21 10:03 102 22 139/85 (103) 100 Room Air 01/08/21 09:48 108 21 153/99 (117) 99 Room Air 01/08/21 09:33 112 15 152/96 (114) 100 Room Air 01/08/21 09:21 17 96 Room Air 01/08/21 09:18 96 19 149/97 (114) 98 Room Air 01/08/21 09:03 106 20 150/96 (114) 97 Room Air 01/08/21 08:51 17 98 Room Air 01/08/21 08:48 104 21 153/97 (115) 98 Room Air 01/08/21 08:33 106 24 143/85 (104) 99 Room Air 01/08/21 08:18 108 22 155/93 (113) 100 Room Air 01/08/21 08:13 155/97 (116) Room Air 01/08/21 07:33 145/83 (103) 99 Room Air 01/08/21 07:26 98.1 115 17 151/103 (87) 99 Room Air 98.1 EKG: EKG: Sinus tachycardia rate of 127, no ST-T wave changes, no ectopic beats, normal axis, normal NV, QRS, and QTc intervals. Impression: Sinus tachycardia, no STEMI. interpreted by meMitchell D.O. Radiology/Procedures: Radiology/Procedures: EXAM: CT angiography of the chest with intravenous contrast. HISTORY: Chest pain. Suspected dissection. TECHNIQUE: Computed tomographic images of the chest were obtained following the administration of intravenous contrast according to angiography protocol. Multiplanar reformatting was performed and three dimensional maximum intensity projection images were obtained. *One or more of the following individualized dose reduction techniques were utilized for this examination: 1. Automated exposure control. 2. Adjustment of the mA and/or kV according to patient size. 3. Use of iterative reconstruction technique. COMPARISON: 11/19/2020 and 11/13/2016. FINDINGS: Evaluation of the ascending aorta is limited due to cardiac motion. There is no convincing aortic dissection. There is no aneurysm. The heart is no rmal in size. There is a common origin of the right innominate and left common carotid arteries, a normal arch branching variant. There is a heterogeneous enlarged left thyroid lobe containing multiple nodules and calcifications and extending into the superior mediastinum. There is also a heterogeneous multinodular right thyroid lobe. The left thyroid lobe result in rightward devia tion of the trachea. The airway remains patent. There are prominent mediastinal and hilar lymph nodes. These are not pathologic ally enlarged and may be physiologic or reactive in etiology. There is no pneumothorax or pleural effusion. There is bilateral posterior dependent and basilar atelectasis. There are few tiny solid and groundglass nodular opacities within both lungs. For reference purposes, there is a 5 mm groundglass nodular opacity within the anterior left lower lobe (series 8, image 1110). There is a 5 mm nodule within the superior segment of the right lower lobe (series 8, image 1008). There are a few additional tiny 2 to 3 mm pleural-based nodules which are stable in appearance. There is no acute or suspicious osseous lesion. There are few osseous hemangiomas and bone islands. This includes a bone island within the right aspect of the manubrium. Evaluation of the upper abdomen demonstrates a 2.2 cm enhancing lesion within the right hepatic lobe. IMPRESSION: 1. No evidence of thoracic aortic dissection. There is limited evaluation of the ascending aorta due to cardiac motion. 2. Multiple pulmonary nodules measuring up to 5 mm. These are stable compared to the prior study. Follow up can be performed in one year to confirm stability. 3. Heterogeneously enlarged left greater than right thyroid lobe containing multiple nodules and associated with extension to the superior mediastinum and rightward deviation of the trachea. 4. 2.2 cm enhancing lesion within the liver. This is stable compared to a CT p erformed 11/13/2016, favoring a benign etiology such as a hemangioma. This can be assessed with a liver sonogram or liver protocol MRI. Electronically signed by: Jacinta Gill MD (01/08/2021 12:11 PM EXAM: CT angiogram of the head and neck with intravenous contrast. HISTORY: Left-sided neck pain and left hand and foot numbness. TECHNIQUE: Computed tomographic images of the head and neck were obtained following the administration of intravenous contrast. Three-dimensional maximum intensity projection images were obtained. *One or more of the following individualized dose reduction techniques were utilized for this examination: 1. Automated exposure control. 2. Adjustment of the mA and/or kV according to patient size. 3. Use of iterative reconstruction technique. COMPARISON: None. FINDINGS: The aortic arch is normal in caliber. There is a common origin of the right innominate and left common carotid arteries, a normal aortic arch branching variant. The left common carotid artery is deviated laterally due to intrathoracic extension of a heterogeneously enlarged multinodular left thyroid lobe. The right thyroid lobe is also heterogeneous and nodular and mildly enlarged. There is rightward deviation of the trachea due to the aforementioned left thyroid lobe. The airway remains patent. There are nonspecific mediastinal lymph nodes. These are not pathologically enlarged. The carotid bifurcations are widely patent. The internal carotid arteries are widely patent. The anterior, middle and posterior cerebral arteries are patent. The basilar artery is widely patent. The vertebral arteries are widely patent. The distal left vertebral artery slightly dominant. There is no convincing aneurysm or suspicious enhancing lesion. There is no mass effect or midline shift involving the brain. The pacheco-white matter differentiation pattern is intact. The orbits, paranasal sinuses mastoid air cells are unremarkable. There are fairly symmetric bilateral parotid nodules due to lymph nodes. There is no convincing neck lymphadenopathy. There is no suspicious osseous lesion. IMPRESSION: 1. No evidence of hemodynamically significant stenosis or arterial occlusion. 2. Heterogeneous enlarged multinodular left greater than right thyroid with associated left thyroid lobe intrathoracic extension and rightward deviation of the trachea. 3. No acute intracranial finding. Note is made that MRI is more sensitive for acute infarction. 4. Please refer to the separate report for the CT angiogram of the chest on the same date for additional findings. PQRS Compliance Statement - Stenosis calculations for CT, MR and conventional angiography are based upon measurement of the distal ICA diameter in accordance with the NASCET methodology. Stenosis calculations for carotid ultrasound studies are derived from validated velocity criteria which are known to correlate with the NASCET methodology. Electronically signed by: Jacinta Gill MD (01/08/2021 12:35 PM) EXAM: CHEST 1 VIEW History: Numbness COMPARISON: 12/16/2020 TECHNIQUE: Single portable radiograph of the chest FINDINGS: The cardiac silhouette is unremarkable. Minimal bibasilar lung atelectasis. The costophrenic sulci are clear and well demarcated. IMPRESSION: Minimal bibasilar lung atelectasis. Electronically signed by: David Alvarado MD (01/08/2021 8:16 AM) Course & Med Decision Making: Course & Med Decision Making Patient outside the window for TPA, her only neurological objective symptom was left hand and left foot sensory changes. There is no other sign of acute stroke. She complains of a enlarged thyroid mass that was pushing on her trachea before today's radiology finding. She complained of neck pain, shoulder pain and and in the middle of her encounter in the ER chest pain that radiated to her back. A CT angiogram of the chest was added onto her CTA head and neck. Results are as above. Patient remained with numbness in the hand and foot. Because of this thyroid mass nodules and objective findings on exam, will admit the patient to the hospital for an MRI. I discussed the case with Dr. Henderson who agreed with MRI. Patient will be admitted to the hospital to Dr. Curtis My Orders - MITCHELL THOMAS DO Procedure Category Date Status Time Vital Signs Monitoring ER 01/08/21 Transmitted 07:39 Blood Pressure ER 01/08/21 Transmitted Monitoring 07:39 Continuous Pulse Ox ER 01/08/21 Transmitted 07:39 Cbc W Autodiff LAB 01/08/21 Complete 07:39 Basic Metabolic Panel LAB 01/08/21 Complete 07:39 Magnesium LAB 01/08/21 Complete 07:39 Thyroid Stim Hormone LAB 01/08/21 Complete (Tsh) 07:39 Ua, Cult If Indicated LAB 01/08/21 Complete 07:39 Portable Chest 1v RAD 01/08/21 Resulted 07:39 12 Lead Ekg EKG 01/08/21 Complete 07:39 Iv Normal Saline PHA 01/08/21 Complete 1000ml Bag (Iv Sodium 07:[address] 01/08/21 Resulted And Neck 07:39 Morphine Sulfate PHA 01/08/21 Complete (Morphine Sulfate) 07:45 Iohexol 300 Mg/Ml PHA 01/08/21 Complete (Omnipaque 300 Mg/Ml) 08:15 Contrast Given -- PHA 01/08/21 In Process Info Only (Contrast Gi 08:15 Urine Culture DM 01/08/21 In Process 08:40 Fentanyl Pf Vial PHA 01/08/21 Complete (Fentanyl 2ml Vial) 09:45 12 Lead Ekg EKG 01/08/21 Complete 09:44 Troponini LAB 01/08/21 Complete 09:59 Nt-Pro Bnp LAB 01/08/21 Complete 09:59 Test,Urine LAB 01/08/21 Complete 10:06 Iv Normal Saline PHA 01/08/21 Complete 1000ml Bag (Iv Sodium 10:[address] 01/08/21 Resulted 10:08 Iohexol 350 Mg/Ml PHA 01/08/21 Complete (Omnipaque 350 Mg/Ml) 10:45 Ceftriaxone Iv Push PHA 01/08/21 Complete (Rocephin) 10:45 Hydromorphone PHA 01/08/21 Complete (Dilaudid) 13:30 Er Bridge Order ADT 01/08/21 Transmitted 13:48 Code Status CODE 01/08/21 Transmitted 13:48 Vital Signs, Per Unit LOUISE 01/08/21 In Process Protocol 13:48 Regular DIET 01/08/21 Transmitted Dinner Ambulate Ad Fany LOUISE 01/08/21 In Process 13:48 Cbc W Autodiff LAB 01/09/21 Verified 06:00 Basic Metabolic Panel LAB 01/09/21 Verified 06:00 Ondansetron Pf PHA 01/08/21 In Process (Zofran) 14:00 Morphine Sulfate PHA 01/08/21 In Process (Morphine Sulfate) 14:00 Consult Physician By CONS 01/08/21 Transmitted Name 13:48 Departure Departure Impression: Primary Impression: Numbness Additional Impressions: Thyroid mass Chest pain Disposition: ADMITTED INPATIENT Admitting Physician: KHALIF Robbins) Condition: STABLE Referrals: NO PCP (PCP) MITCHELL THOMAS DO Jan 08, 2021 07:45
--- NOTE | 2021-01-08 07:56 | EKG ---
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
[2021-01-08] MEDS ORDERED: IOHEXOL 300 MG/ML 100ML VIAL. IV ONE (08:15)
[2021-01-08] MEDS ORDERED: CONTRAST GIVEN. MC PRN (08:15)
--- NOTE | 2021-01-08 08:18 | RAD ---
EXAM: CHEST 1 VIEW History: Numbness COMPARISON: 12/16/2020 TECHNIQUE: Single portable radiograph of the chest FINDINGS: The cardiac silhouette is unremarkable. Minimal bibasilar lung atelectasis. The costophren ic sulci are clear and well demarcated. IMPRESSION: Minimal bibasilar lung atelectasis. Electronically signed by: David Alvarado MD (01/08/2021 8:16 AM) [id number]
[2021-01-08 08:24] LABS: BILIRUBIN,URINE NEGATIVE (NEG); CLARITY,URINE CLOUDY; COLOR,URINE AMBER; NITRITE,URINE NEGATIVE (NEG); PROTEIN,URINE 30 mg/dL (NEG-TRACE)
[2021-01-08 08:39] LABS: BACTERIA,URINE MANY /HPF (0-FEW)
[2021-01-08] MEDS ORDERED: fentaNYL PF VIAL 100 MCG/2 ML VIAL IVP ONE (09:45)
[2021-01-08 09:47] LABS: BASO # 0.1 x10^3/uL (0.0-0.2); BASO % 1 % (0-3); EOS # 0.1 x10^3/uL (0.0-0.7); EOS % 1 % (0-3); HEMATOCRIT 39.6 % (36.0-47.0); HEMOGLOBIN 13.9 g/dL (12.0-15.5); LYMPH # 2.4 x10^3/uL (1.0-4.8); LYMPH % 39 % (24-48); MEAN CORPUSCULAR HEMOGLOBIN 34 pg (25-35); MEAN CORPUSCULAR HGB CONC 35 g/dL (31-37); MEAN CORPUSCULAR VOLUME 97 fL (79-100); MONO # 0.6 x10^3/uL (0.0-1.1); MONO % 9 % (0-9); NEUT # 3.1 x10^3/uL (1.8-7.7); NEUT % 50 % (31-73); PLATELET COUNT 258 x10^3/uL (140-400); RED CELL DISTRIBUTION WIDTH 14.6 % (11.5-14.5); WHITE BLOOD COUNT 6.2 x10^3/uL (4.0-11.0)
[2021-01-08 09:55] LABS: CALCIUM 9.1 mg/dL (8.5-10.1); CREATININE 0.7 mg/dL (0.6-1.0); GFR 112.1; POTASSIUM 3.8 mmol/L (3.5-5.1)
[2021-01-08 09:56] LABS: MAGNESIUM 2.1 mg/dL (1.8-2.4)
--- NOTE | 2021-01-08 10:08 | EKG ---
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
[2021-01-08] MEDS ORDERED: IV NORMAL SALINE 1000ML BAG 1,000 ML IV ONE (10:15)
[2021-01-08 10:23] LABS: U PREG PATIENT NEGATIVE (NEG)
[2021-01-08] MEDS ORDERED: IOHEXOL 350 MG/ML 100 ML VIAL. IV ONE (10:45)
[2021-01-08] MEDS ORDERED: cefTRIAXone IV Push 1 GM VIAL. IVP ONE (10:45)
--- NOTE | 2021-01-08 12:13 | RAD ---
EXAM: CT angiography of the chest with intravenous contrast. HISTORY: Chest pain. Suspected dissection. TECHNIQUE: Computed tomographic images of the chest were obtained following the administration of int ravenous contrast according to angiography protocol. Multiplanar reformatting was performed and three dimensional maximum intensity projection images were obtained. *One or more of the following individualized dose reduction techniques were utilized for this examina tion: 1. Automated exposure control. 2. Adjustment of the mA and/or kV according to patient size. 3. Use of iterative reconstruction technique. COMPARISON: 11/19/2020 and 11/13/2016. FINDINGS: Evaluation of the ascending aorta is limited due to cardiac motion. There is no convincing aortic dissection. There is no aneurysm. The heart is normal in size. There is a common origin of the right innominate and left common carotid arteries, a normal arch branching variant. There is a heter ogeneous enlarged left thyroid lobe containing multiple nodules and calcifications and extending into the superior mediastinum. There is also a heterogeneous multinodular right thyroid lobe. The left th yroid lobe result in rightward deviation of the trachea. The airway remains patent. There are prominent mediastinal and hilar lymph nodes. These are not pathologically enlarged and may be physiologic or reactive in etiology. There is no pneumothorax or pleural effusion. There is bilate ral posterior dependent and basilar atelectasis. There are few tiny solid and groundglass nodular opa cities within both lungs. For reference purposes, there is a 5 mm groundglass nodular opacity within the anterior left lower lobe (series 8, image 1110). There is a 5 mm nodule within the superior segme nt of the right lower lobe (series 8, image 1008). There are a few additional tiny 2 to 3 mm pleural- based nodules which are stable in appearance. There is no acute or suspicious osseous lesion. There are few osseous hemangiomas and bone islands. T his includes a bone island within the right aspect of the manubrium. Evaluation of the upper abdomen demonstrates a 2.2 cm enhancing lesion within the right hepatic lobe. IMPRESSION: 1. No evidence of thoracic aortic dissection. There is limited evaluation of the ascending aorta due to cardiac motion. 2. Multiple pulmonary nodules measuring up to 5 mm. These are stable compared to the prior study. Fol low up can be performed in one year to confirm stability. 3. Heterogeneously enlarged left greater than right thyroid lobe containing multiple nodules and asso ciated with extension to the superior mediastinum and rightward deviation of the trachea. 4. 2.2 cm enhancing lesion within the liver. This is stable compared to a CT performed 11/13/2016, fav oring a benign etiology such as a hemangioma. This can be assessed with a liver sonogram or liver pro tocol MRI. Electronically signed by: Jacinta Gill MD (01/08/2021 12:11 PM) [id number]
--- NOTE | 2021-01-08 12:37 | RAD ---
EXAM: CT angiogram of the head and neck with intravenous contrast. HISTORY: Left-sided neck pain and left hand and foot numbness. TECHNIQUE: Computed tomographic images of the head and neck were obtained following the administratio n of intravenous contrast. Three-dimensional maximum intensity projection images were obtained. *One or more of the following individualized dose reduction techniques were utilized for this examina tion: 1. Automated exposure control. 2. Adjustment of the mA and/or kV according to patient size. 3. Use of iterative reconstruction technique. COMPARISON: None. FINDINGS: The aortic arch is normal in caliber. There is a common origin of the right innominate and left common carotid arteries, a normal aortic arch branching variant. The left common carotid artery is deviated laterally due to intrathoracic extension of a heterogeneously enlarged multinodular left thyroid lobe. The right thyroid lobe is also heterogeneous and nodular and mildly enlarged. There is rightward deviation of the trachea due to the aforementioned left thyroid lobe. The airway remains pa tent. There are nonspecific mediastinal lymph nodes. These are not pathologically enlarged. The carotid bifurcations are widely patent. The internal carotid arteries are widely patent. The ante rior, middle and posterior cerebral arteries are patent. The basilar artery is widely patent. The yani tebral arteries are widely patent. The distal left vertebral artery slightly dominant. There is no co nvincing aneurysm or suspicious enhancing lesion. There is no mass effect or midline shift involving the brain. The pacheco-white matter differentiation p attern is intact. The orbits, paranasal sinuses mastoid air cells are unremarkable. There are fairly symmetric bilateral parotid nodules due to lymph nodes. There is no convincing neck lymphadenopathy. There is no suspicious osseous lesion. IMPRESSION: 1. No evidence of hemodynamically significant stenosis or arterial occlusion. 2. Heterogeneous enlarged multinodular left greater than right thyroid with associated left thyroid l obe intrathoracic extension and rightward deviation of the trachea. 3. No acute intracranial finding. Note is made that MRI is more sensitive for acute infarction. 4. Please refer to the separate report for the CT angiogram of the chest on the same date for additio nal findings. PQRS Compliance Statement - Stenosis calculations for CT, MR and conventional angiography are based u sherrill measurement of the distal ICA diameter in accordance with the NASCET methodology. Stenosis calcu lations for carotid ultrasound studies are derived from validated velocity criteria which are known t o correlate with the NASCET methodology. Electronically signed by: Jacinta Gill MD (01/08/2021 12:35 PM) [id number]
[2021-01-08] MEDS ORDERED: HYDROmorphone 2 MG/ML VIAL IVP ONE (13:30)
[2021-01-08] MEDS ORDERED: ONDANSETRON PF 4 MG/2 ML VIAL. IVP PRN (14:00)
--- NOTE | 2021-01-08 15:43 | PDOC2 ---
NEUROLOGY CONSULT Date of Service DOS: DATE: 01/08/21 TIME: 15:32 Reason for Consult Reason for Consult: Left-sided numbness, need for MRI Referring Physician Referring Physician: Dr. Etienne History of Present Illness History of Present Illness The patient is a 40-year-old right-handed female who at about 9 AM this morning noticed left hand and foot numbness, chest pain, as well as swelling on the right side of her body. She was at in November for a thyroid mass. I reviewed the records with her permission and have recorded the fine needle aspirate results (benign), as well as CT cervical and thoracic spine results, below. She did receive what sounds like a cervical epidural injection which helped some with her neck pain. There has been no trouble with her face, diplopia, dysphagia, or dysarthria. Past Medical History Psych: Anxiety, Depression Musculoskeletal: Other (Cervical, thoracic spinal spondylosis) ENT: Other (Thyroid mass) Past Surgical History Past Surgical History: Appendectomy, , Tonsillectomy Family History Family History: Cancer Social History Social History Single, unemployed, no alcohol or tobacco Current Medications Current Medications Current Medications Sodium Chloride 1,000 ml @ 1,000 mls/hr Q1H IV Last administered on 01/08/21at 08:50; Start 01/08/21 at 07:45; Stop 01/08/21 at 08:44; Status DC Morphine Sulfate (Morphine Sulfate) 5 mg 1X ONCE IV Last administered on 01/08/21at 08:51; Start 01/08/21 at 07:45; Stop 01/08/21 at 07:46; Status DC Iohexol (Omnipaque 300 Mg/ml) 75 ml 1X ONCE IV ; Start 01/08/21 at 08:15; Stop 01/08/21 at 08:16; Status DC Info (CONTRAST GIVEN -- Rx MONITORING) 1 each PRN DAILY PRN MC SEE COMMENTS; Start 01/08/21 at 08:15; Stop 01/10/21 at 08:14 Fentanyl Citrate (Fentanyl 2ml Vial) 75 mcg 1X ONCE IVP Last administered on 01/08/21at 10:12; Start 01/08/21 at 09:45; Stop 01/08/21 at 09:46; Status DC Sodium Chloride 1,000 ml @ 1,000 mls/hr 1X ONCE IV Last administered on 01/08/21at 10:12; Start 01/08/21 at 10:15; Stop 01/08/21 at 11:14; Status DC Iohexol (Omnipaque 350 Mg/ml) 90 ml 1X ONCE IV Last administered on 01/08/21at 10:45; Start 01/08/21 at 10:45; Stop 01/08/21 at 10:47; Status DC Ceftriaxone Sodium (Rocephin) 1 gm 1X ONCE IVP Last administered on 01/08/21at 11:27; Start 01/08/21 at 10:45; Stop 01/08/21 at 10:47; Status DC Hydromorphone HCl (Dilaudid) 1 mg 1X ONCE IVP Last administered on 01/08/21at 13:47; Start 01/08/21 at 13:30; Stop 01/08/21 at 13:36; Status DC Ondansetron HCl (Zofran) 4 mg PRN Q8HRS PRN IVP NAUSEA/VOMITING; Start 01/08/21 at 14:00; Stop 01/09/21 at 13:59 Morphine Sulfate (Morphine Sulfate) 4 mg PRN Q2HR PRN IVP PAIN; Start 01/08/21 at 14:00; Stop 01/09/21 at 13:59 Active Scripts Active Methimazole 5 Mg Tablet 5 Mg PO TIDWMEALS Hydrocodone-Apap 5-325 (Hydrocodone Bit/Acetaminophen) 1 Tab Tablet 1 Tab PO PRN Q6HRS PRN Hurricaine (Benzocaine) 57 Gm [place] 57 Gm MM PRN Q6HRS PRN 5 Days Peridex (Chlorhexidine Gluconate) 15 Ml Mouthwash 15 Ml PO BID 7 Days Promethazine-Codeine Syrup (Promethazine Hcl/Codeine) 118 Ml Syrup 5 Ml PO Q4- 6HRS Proair Hfa Inhaler (Albuterol Sulfate) 8.5 Gm Hfa.aer.ad 1 Puff INH PRN Q6HRS TX N Tessalon Perle (Benzonatate) 100 Mg Capsule 1 Cap PO TID Allergies Allergies: Coded Allergies: No Known Drug Allergies (Unverified , 11/14/16) ROS Review of System Negative for fever, chills, weight loss, shortness of breath, chest pain, indigestion, hematochezia, melena, and dysuria. Full 14-point review of systems is negative. Physical Exam Physical Examination General: Well-developed, well-nourished black female in no acute distress HEENT: Normocephalic andatraumatic. Temporal arteriespulsatile and nontender. Neck: Supple without bruit, no meningismus Musculoskeletal: Stability:see neurologic. Gait exam:see neurologic. Tone:see neurologi c.Strength:see neurologic. I do not detect right-sided swelling Neurological: Mental Status:intact, orientation, memory, attention span/concentration, language, fund of knowledge normal. Cranial Nerves:Pupils equal and reactive to light, extraocular movements areintact, visual sin are full to confrontation. Facial sensation is normal. There is no facial asymmetry. Vestibulo-ocular reflex is intact. Palate elevates and tongue protrudes in midline. All other cranial related problems are negative except as mentioned before.Reflexes:2+ and symmetric with flexor plantar responses. Motor:5/5 strength with normal tone and bulk. Coordination:Finger-nose finger and yfvq-be-onvj testing are normal. Rapid alternating movements and fine finger movements are intact. Gait:Not tested. Sensory:Normal pinprick, vibration, light touch, proprioception. Vitals VITALS Vital Signs Date Time Temp Pulse Resp B/P (MAP) Pulse Ox O2 Delivery O2 Flow Rate FiO2 01/08/21 13:47 Room Air 01/08/21 13:05 114 137/78 (97) 97 01/08/21 12:43 11 01/08/21 07:26 98.1 98.1 Labs Labs [facility], 12/12/2020, thyroid fine-needle aspiration: Consistent with a benign follicular nodule (nodular goiter) with cystic degeneration Laboratory Tests Test 01/08/21 08:11 01/08/21 09:19 Urine Collection Type Void Urine Color Rose Marie Urine Clarity Cloudy Urine pH 6.0 (<5.0-8.0) Urine Specific [place] 1.020 (1.000-1.030) Urine Protein 30 mg/dL (NEG-TRACE) Urine Glucose (UA) Negative mg/dL (NEG) Urine Ketones (Stick) 15 mg/dL (NEG) Urine Blood Large (NEG) Urine Nitrite Negative (NEG) Urine Bilirubin Negative (NEG) Urine Urobilinogen Dipstick 1.0 mg/dL (0.2 mg/dL) Urine Leukocyte Esterase Small (NEG) Urine RBC 6-10 /HPF (0-2) Urine WBC 11-20 /HPF (0-4) Urine Squamous Epithelial Cells Many /LPF Urine Bacteria Many /HPF (0-FEW) Urine Mucus Marked /LPF Urine Test Negative (NEG) White Blood Count 6.2 x10^3/uL (4.0-11.0) Red Blood Count 4.10 x10^6/uL (3.50-5.40) Hemoglobin 13.9 g/dL (12.0-15.5) Hematocrit 39.6 % (36.0-47.0) Mean Corpuscular Volume 97 fL (79-100) Mean Corpuscular Hemoglobin 34 pg (25-35) Mean Corpuscular Hemoglobin Concent 35 g/dL (31-37) Red Cell Distribution Width 14.6 % (11.5-14.5) Platelet Count 258 x10^3/uL (140-400) Neutrophils (%) (Auto) 50 % (31-73) Lymphocytes (%) (Auto) 39 % (24-48) Monocytes (%) (Auto) 9 % (0-9) Eosinophils (%) (Auto) 1 % (0-3) Basophils (%) (Auto) 1 % (0-3) Neutrophils # (Auto) 3.1 x10^3/uL (1.8-7.7) Lymphocytes # (Auto) 2.4 x10^3/uL (1.0-4.8) Monocytes # (Auto) 0.6 x10^3/uL (0.0-1.1) Eosinophils # (Auto) 0.1 x10^3/uL (0.0-0.7) Basophils # (Auto) 0.1 x10^3/uL (0.0-0.2) Sodium Level 137 mmol/L (136-145) Potassium Level 3.8 mmol/L (3.5-5.1) Chloride Level 101 mmol/L (98-107) Carbon Dioxide Level 28 mmol/L (21-32) Anion Gap 8 (6-14) Blood Urea Nitrogen 9 mg/dL (7-20) Creatinine 0.7 mg/dL (0.6-1.0) Estimated GFR (Cockcroft-Gault) 112.1 Glucose Level 95 mg/dL (70-99) Calcium Level 9.1 mg/dL (8.5-10.1) Magnesium Level 2.1 mg/dL (1.8-2.4) Troponin I Quantitative < 0.017 ng/mL (0.000-0.055) DG-Dtg-G-Type Natriuretic Peptide 9 pg/mL (0-124) Thyroid Stimulating Hormone (TSH) 0.377 uIU/mL (0.358-3.74) Laboratory Tests Test 01/08/21 08:11 01/08/21 09:19 Urine Collection Type Void Urine Color Rose Marie Urine Clarity Cloudy Urine pH 6.0 (<5.0-8.0) Urine Specific [place] 1.020 (1.000-1.030) Urine Protein 30 mg/dL (NEG-TRACE) Urine Glucose (UA) Negative mg/dL (NEG) Urine Ketones (Stick) 15 mg/dL (NEG) Urine Blood Large (NEG) Urine Nitrite Negative (NEG) Urine Bilirubin Negative (NEG) Urine Urobilinogen Dipstick 1.0 mg/dL (0.2 mg/dL) Urine Leukocyte Esterase Small (NEG) Urine RBC 6-10 /HPF (0-2) Urine WBC 11-20 /HPF (0-4) Urine Squamous Epithelial Cells Many /LPF Urine Bacteria Many /HPF (0-FEW) Urine Mucus Marked /LPF Urine Test Negative (NEG) White Blood Count 6.2 x10^3/uL (4.0-11.0) Red Blood Count 4.10 x10^6/uL (3.50-5.40) Hemoglobin 13.9 g/dL (12.0-15.5) Hematocrit 39.6 % (36.0-47.0) Mean Corpuscular Volume 97 fL (79-100) Mean Corpuscular Hemoglobin 34 pg (25-35) Mean Corpuscular Hemoglobin Concent 35 g/dL (31-37) Red Cell Distribution Width 14.6 % (11.5-14.5) Platelet Count 258 x10^3/uL (140-400) Neutrophils (%) (Auto) 50 % (31-73) Lymphocytes (%) (Auto) 39 % (24-48) Monocytes (%) (Auto) 9 % (0-9) Eosinophils (%) (Auto) 1 % (0-3) Basophils (%) (Auto) 1 % (0-3) Neutrophils # (Auto) 3.1 x10^3/uL (1.8-7.7) Lymphocytes # (Auto) 2.4 x10^3/uL (1.0-4.8) Monocytes # (Auto) 0.6 x10^3/uL (0.0-1.1) Eosinophils # (Auto) 0.1 x10^3/uL (0.0-0.7) Basophils # (Auto) 0.1 x10^3/uL (0.0-0.2) Sodium Level 137 mmol/L (136-145) Potassium Level 3.8 mmol/L (3.5-5.1) Chloride Level 101 mmol/L (98-107) Carbon Dioxide Level 28 mmol/L (21-32) Anion Gap 8 (6-14) Blood Urea Nitrogen 9 mg/dL (7-20) Creatinine 0.7 mg/dL (0.6-1.0) Estimated GFR (Cockcroft-Gault) 112.1 Glucose Level 95 mg/dL (70-99) Calcium Level 9.1 mg/dL (8.5-10.1) Magnesium Level 2.1 mg/dL (1.8-2.4) Troponin I Quantitative < 0.017 ng/mL (0.000-0.055) UA-Rmy-E-Type Natriuretic Peptide 9 pg/mL (0-124) Thyroid Stimulating Hormone (TSH) 0.377 uIU/mL (0.358-3.74) Images Images CT angiogram of the head and neck with intravenous contrast. HISTORY: Left-sided neck pain and left hand and foot numbness. TECHNIQUE: Computed tomographic images of the head and neck were obtained following the administration of intravenous contrast. Three-dimensional maximum intensity projection images were obtained. *One or more of the following individualized dose reduction techniques were utilized for this examination: 1. Automated exposure control. 2. Adjustment of the mA and/or kV according to patient size. 3. Use of iterative reconstruction technique. COMPARISON: None. FINDINGS: The aortic arch is normal in caliber. There is a common origin of the right innominate and left common carotid arteries, a normal aortic arch branching variant. The left common carotid artery is deviated laterally due to intrathoracic extension of a heterogeneously enlarged multinodular left thyroid lobe. The right thyroid lobe is also heterogeneous and nodular and mildly enlarged. There is rightward deviation of the trachea due to the aforementioned left thyroid lobe. The airway remains patent. There are nonspecific mediastinal lymph nodes. These are not pathologically enlarged. The carotid bifurcations are widely patent. The internal carotid arteries are widely patent. The anterior, middle and posterior cerebral arteries are patent. The basilar artery is widely patent. The vertebral arteries are widely patent. The distal left vertebral artery slightly dominant. There is no convincing aneurysm or suspicious enhancing lesion. There is no mass effect or midline shift involving the brain. The pacheco-white matter differentiation pattern is intact. The orbits, paranasal sinuses mastoid air cells are unremarkable. There are fairly symmetric bilateral parotid nodules due to lymph nodes. There is no convincing neck lymphadenopathy. There is no suspicious osseous lesion. IMPRESSION: 1. No evidence of hemodynamically significant stenosis or arterial occlusion. 2. Heterogeneous enlarged multinodular left greater than right thyroid with associated left thyroid lobe intrathoracic extension and rightward deviation of the trachea. 3. No acute intracranial finding. Note is made that MRI is more sensitive for acute infarction. 4. Please refer to the separate report for the CT angiogram of the chest on the same date for additional findings. [facility] CT cervical and thoracic spine, 12/09/20: CT C-SPINE AND T-SPINE HISTORY: 40-year-old female, neck pain without trauma, tingling in fingers of left arm. TECHNIQUE: Multiple contiguous axial images were obtained of the cervical spine and thoracic without intravenous contrast. Sagittal and coronal reformations were obtained. Comparison: CT neck December 08, 2020, CTA chest December 08, 2020, and CT C-spine July 13, 2010. FINDINGS: C-spine: There is persistent straightening of the normal cervical lordosis. The craniocervical junction is intact. The vertebral body heights are maintained. No acute cervical fracture or subluxation is identified. No destructive osseous lesion. There is mild multilevel cervical disc degeneration. Mild posterior disc bulge at C6-C7 results in mild central spinal stenosis. No significant neural foraminal stenosis. Redemonstration of heterogeneous, partially calcified left thyroid mass and associated rightward tracheal deviation. The lung apices are clear. T-spine: There is normal thoracic alignment. The vertebral body heights are maintained. No acute thoracic fracture or subluxation is identified. There is mild multilevel thoracic disc degeneration, greater within the midthoracic spine. Mild neural foraminal stenosis on the right at T4-T5 and on the left at T5-T6. No significant central spinal stenosis is identified. No destructive osseous lesion. Tiny sclerotic lesion within the T9 vertebral body, most consistent with a bone island. Mild bibasilar atelectasis. Small right lower lobe nodule (series 301, image 159) is stable since at least 2008 compatible with benign etiology. Excreted contrast is seen within the renal collecting systems. Redemonstration of mild mediastinal lymphadenopathy, better evaluated on recent CTA chest. Partially visualized large left thyroid mass with substernal extension and splaying of the great vessels. Partially visualized coronary artery calcification. IMPRESSION C-spine: 1. Mild cervical spondylosis with mild degenerative central spinal stenosis at C6-C7. No significant neural foraminal narrowing appreciated. 2. Redemonstration of large left thyroid mass with associated rightward tracheal deviation, better evaluated on recent thyroid ultrasound and CT neck from one day earlier. T-spine: 1. Thoracic spondylosis with mild multilevel degenerative neural foraminal stenosis on the right at T4-T5 and on the left at T5-T6. 2. Redemonstration of mild mediastinal lymphadenopathy, better evaluated on recent CTA chest. Assessment/Plan Assessment/Plan Impression: Left hand and foot numbness sparing the face, examination is negative for myelopathy, radiculopathy, neuropathy, or stroke. Hemicord syndrome is unlikely. Her cervical CT is not terrible. She does have cervical and thoracic mild spondylosis. Note normal CT angiogram of the head and neck, a CT of the head was not done. Thyroid mass, benign Recommendations: She actually has an ENT appointment with [facility] tomorrow to discuss removal of the thyroid mass. Thus, it would be best to expedite a stroke work-up with an MRI of the brain today Further stroke work-up and treatment only if it is positive Outside the window to give alteplase even if I felt she were a candidate. Observe overnight and if stable, she can be discharged tomorrow. Thank you for letting me help with the patient's care. ALBIN ALEXANDER MD Jan 08, 2021 15:43
--- NOTE | 2021-01-08 16:56 | RAD ---
MRI BRAIN WO Date: 01/08/2021 3:18 PM Indication: left numbness Comparison: CT 01/08/2021. Technique: Multiplanar multisequence MRI of the brain was performed without intravenous contrast usin g the standard protocol. Findings: No acute infarct. No acute or chronic hemorrhage. The ventricles are normal in size and configuration without hydrocephalus. The scalp and calvarium are normal. The pituitary and sella are normal. No Chiari malformation. The v isualized upper cervical spine is normal. The visualized orbits and globes are normal. The visualized paranasal sinuses are clear. The mastoid air cells are clear. Normal flow voids within the vertebral, basilar, and internal carotid arteries indicating patency. IMPRESSION: No acute infarct, hemorrhage, mass, or hydrocephalus. Electronically signed by: Beltran Block MD (01/08/2021 4:54 PM) HARESH
[2021-01-08] MEDS: MORPHINE SULFATE 4 MG/ML INJ. IVP PRN ×2 (17:03→20:48)
[2021-01-08 19:00] VITALS: BP 122/61
--- NOTE | 2021-01-08 19:54 | HP ---
ADMIT DATE: 01/08/2021 CHIEF COMPLAINT: Left hand and foot numbness. HISTORY OF PRESENT ILLNESS: The patient is a pleasant, middle-aged female who presents to the ER with left hand and foot numbness that started about 9:00 this morning. She also complains of some swelling on the right side of her body and some vague chest pain. She does have a thyroid mass that scheduled to be treated at here in the next week or 2. I discussed the case with ER physician. We are going to admit the patient and consult Dr. Otto regarding the neurologic symptoms. PAST MEDICAL HISTORY: Thyroid mass. She thinks it might be malignant. It is being worked up at . She has an appointment to see her ENT there in the next couple of days. Depression, anxiety, cervical and thoracic spondylosis, appendectomy, , tonsillectomy. ALLERGIES: None. FAMILY HISTORY: Hypertension. SOCIAL HISTORY: She does not drink, smoke or take drugs. MEDICATIONS: Reviewed, please refer to the MRAD. REVIEW OF SYSTEMS: GENERAL: No history of weight change, weakness or fevers. SKIN: No bruising, hair changes or rashes. EYES: No blurred, double or loss of vision. NOSE AND THROAT: No history of nosebleeds, hoarseness or sore throat. HEART: No history of palpitations, chest pain or shortness of breath on exertion. LUNGS: Denies cough, hemoptysis, wheezing or shortness of breath. GASTROINTESTINAL: Denies changes in appetite, nausea, vomiting, diarrhea or constipation. GENITOURINARY: No history of frequency, urgency, hesitancy or nocturia. NEUROLOGIC: She complains of some left-sided numbness and weakness. PSYCHIATRIC: No history of panic, anxiety or depression. ENDOCRINE: No history of heat or cold intolerance, polyuria or polydipsia. EXTREMITIES: Denies muscle weakness, joint pain, pain on walking or stiffness. PHYSICAL EXAMINATION: VITALS: Within normal limits and are stable. GENERAL: No apparent distress. Alert and oriented. HEENT: Normal cephalic atraumatic, external auditory canals are patent. She does have thyroid mass. EYES: Extraocular muscles are intact, pupils are equally round and reactive to light and accommodation. MUSCULOSKELETAL: Well developed, well nourished, good range of motion. ENDOCRINE: No thyromegaly was palpated. LYMPHATICS: No cervical chain or axillary nodes were noted. HEMATOPOIETIC: No bruising. NECK: Supple, no JVD, no thyromegaly was noted. LUNGS: Clear to auscultation in all lung sin without rhonchi or wheezing. HEART: RRR, S1, S2 present. Peripheral pulses intact, no obvious murmurs were noted. ABDOMEN: Soft, nontender. Positive bowel sounds no organomegaly, normal bowel sounds. EXTREMITIES: Without any cyanosis, clubbing, or edema. Pedal pulses intact, Homans sign is negative. NEUROLOGIC: Normal speech, normal tone. A and O x 3, moves all extremities, no obvious focal deficits. She has decreased sensation on the left. PSYCHIATRIC: Normal affect, normal mood. Stable. SKIN: No ulcerations or rashes, good skin turgor, no jaundice. VASCULAR: Good capillary refill, neurovascular bundle appears to be intact. DIAGNOSTIC STUDIES: MRI brain, no acute changes. CT chest, no evidence of thoracic dissection. She does have multiple pulmonary nodules and a heterogeneous enlarged thyroid contained multiple nodules extending into the superior mediastinum and rightward deviation of the trachea. She has a hepatic hematoma 2.2 cm. ASSESSMENT AND PLAN: 1. Neurologic symptoms. 2. Thyroid mass. The patient has been admitted. We are consulting Dr. Otto. Home medications. Deep venous thrombosis prophylaxis. Full code. P.r.n. morphine and p.r.n. Zofran. She does have a small urinary tract infection with small leukocyte esterase and 11 white cells. We are going to start IV Rocephin. Home venous thrombosis prophylaxis. Full code. JUANA/CECY/BROOK DR: JUANA/efra TID: [id number]
[2021-01-08] MEDS ORDERED: ALPRAZolam 0.5 MG TABLET PO PRN (21:45)
[2021-01-08] MEDS ORDERED: NICOTINE POLACRILEX 2MG GUM PACKAGE of 12. BC PRN (21:45)
[2021-01-08] MEDS ORDERED: NICOTINE 21MG PATCH. TD SCH (21:52)
[2021-01-08 23:00] VITALS: BP 105/57
[2021-01-09 02:50] VITALS: BP 91/59
[2021-01-09] MEDS: MORPHINE SULFATE 4 MG/ML INJ. IVP PRN (05:44)
[2021-01-09 07:00] VITALS: BP 110/70
[2021-01-09 07:16] LABS: CALCIUM 8.8 mg/dL (8.5-10.1); CREATININE 0.6 mg/dL (0.6-1.0); POTASSIUM 3.9 mmol/L (3.5-5.1)
[2021-01-09 07:40] LABS: BASO % 1 % (0-3); EOS # 0.2 x10^3/uL (0.0-0.7); EOS % 3 % (0-3); HEMATOCRIT 37.1 % (36.0-47.0); HEMOGLOBIN 12.7 g/dL (12.0-15.5); LYMPH # 3.3 x10^3/uL (1.0-4.8); LYMPH % 55 % (24-48); MEAN CORPUSCULAR HEMOGLOBIN 33 pg (25-35); MEAN CORPUSCULAR HGB CONC 34 g/dL (31-37); MEAN CORPUSCULAR VOLUME 97 fL (79-100); MONO # 0.5 x10^3/uL (0.0-1.1); MONO % 8 % (0-9); NEUT % 34 % (31-73); PLATELET COUNT 264 x10^3/uL (140-400); RED BLOOD COUNT 3.83 x10^6/uL (3.50-5.40); RED CELL DISTRIBUTION WIDTH 14.2 % (11.5-14.5); WHITE BLOOD COUNT 5.9 x10^3/uL (4.0-11.0)
--- NOTE | 2021-01-09 08:00 | NUR ---
PATIENT AMA. PIV AND HEART MONITOR REMOVED. PATIENT REFUSED TO BE ESCORTED OFF UNIT. SECURITY ALERTED.
--- NOTE | 2021-01-09 10:50 | PDOC ---
PROGRESS NOTES Date of Service DATE: 01/09/21 TIME: 10:48 Assessment Problems Medical Problems: (1) Chest pain Status: Acute (2) Numbness Status: Acute (3) Thyroid mass Status: Acute Left hand and foot numbness sparing the face, examination is negative for myelopathy, radiculopathy, neuropathy, or stroke. Hemicord syndrome is unlikely. Her cervical CT is not terrible. She does have cervical and thoracic mild spondylosis. Note normal CT angiogram of the head and neck, MRI brain also negative Thyroid mass, benign Psychiatric disorder Plan Keep ENT appointment with KAROLYN to discuss removal of the thyroid mass. No further stroke work-up needed Discharge Subjective She would not answer any question Objective Vital Signs Date Time Temp Pulse Resp B/P (MAP) Pulse Ox O2 Delivery O2 Flow Rate FiO2 01/09/21 07:00 97.8 83 16 110/70 (83) 100 Room Air 97.8 Intake and Output 01/09/21 07:00 Intake Total 2500 ml Output Total 700 ml Balance 1800 ml Intake Oral 500 ml IV Total 2000 ml Output Urine Total 700 ml # Voids 1 PHYSICAL EXAM Patient rapidly became irate when I came to the room. I told her her MRI was fine but she did not react to that good news in a normal way. She told me not to touch her and then screamed at me to get out of her room. Review of Relevant I have reviewed the following items kurtis (where applicable) has been applied. Labs Laboratory Tests Test 01/08/21 08:11 01/08/21 09:19 01/09/21 05:40 Urine Collection Type Void Urine Color Rose Marie Urine Clarity Cloudy Urine pH 6.0 (<5.0-8.0) Urine Specific [place] 1.020 (1.000-1.030) Urine Protein 30 mg/dL (NEG-TRACE) Urine Glucose (UA) Negative mg/dL (NEG) Urine Ketones (Stick) 15 mg/dL (NEG) Urine Blood Large (NEG) Urine Nitrite Negative (NEG) Urine Bilirubin Negative (NEG) Urine Urobilinogen Dipstick 1.0 mg/dL (0.2 mg/dL) Urine Leukocyte Esterase Small (NEG) Urine RBC 6-10 /HPF (0-2) Urine WBC 11-20 /HPF (0-4) Urine Squamous Epithelial Cells Many /LPF Urine Bacteria Many /HPF (0-FEW) Urine Mucus Marked /LPF Urine Test Negative (NEG) White Blood Count 6.2 x10^3/uL (4.0-11.0) 5.9 x10^3/uL (4.0-11.0) Red Blood Count 4.10 x10^6/uL (3.50-5.40) 3.83 x10^6/uL (3.50-5.40) Hemoglobin 13.9 g/dL (12.0-15.5) 12.7 g/dL (12.0-15.5) Hematocrit 39.6 % (36.0-47.0) 37.1 % (36.0-47.0) Mean Corpuscular Volume 97 fL (79-100) 97 fL (79-100) Mean Corpuscular Hemoglobin 34 pg (25-35) 33 pg (25-35) Mean Corpuscular Hemoglobin Concent 35 g/dL (31-37) 34 g/dL (31-37) Red Cell Distribution Width 14.6 % (11.5-14.5) 14.2 % (11.5-14.5) Platelet Count 258 x10^3/uL (140-400) 264 x10^3/uL (140-400) Neutrophils (%) (Auto) 50 % (31-73) 34 % (31-73) Lymphocytes (%) (Auto) 39 % (24-48) 55 % (24-48) Monocytes (%) (Auto) 9 % (0-9) 8 % (0-9) Eosinophils (%) (Auto) 1 % (0-3) 3 % (0-3) Basophils (%) (Auto) 1 % (0-3) 1 % (0-3) Neutrophils # (Auto) 3.1 x10^3/uL (1.8-7.7) 2.0 x10^3/uL (1.8-7.7) Lymphocytes # (Auto) 2.4 x10^3/uL (1.0-4.8) 3.3 x10^3/uL (1.0-4.8) Monocytes # (Auto) 0.6 x10^3/uL (0.0-1.1) 0.5 x10^3/uL (0.0-1.1) Eosinophils # (Auto) 0.1 x10^3/uL (0.0-0.7) 0.2 x10^3/uL (0.0-0.7) Basophils # (Auto) 0.1 x10^3/uL (0.0-0.2) 0.0 x10^3/uL (0.0-0.2) Sodium Level 137 mmol/L (136-145) 137 mmol/L (136-145) Potassium Level 3.8 mmol/L (3.5-5.1) 3.9 mmol/L (3.5-5.1) Chloride Level 101 mmol/L (98-107) 103 mmol/L (98-107) Carbon Dioxide Level 28 mmol/L (21-32) 29 mmol/L (21-32) Anion Gap 8 (6-14) 5 (6-14) Blood Urea Nitrogen 9 mg/dL (7-20) 9 mg/dL (7-20) Creatinine 0.7 mg/dL (0.6-1.0) 0.6 mg/dL (0.6-1.0) Estimated GFR (Cockcroft-Gault) 112.1 134.0 Glucose Level 95 mg/dL (70-99) 90 mg/dL (70-99) Calcium Level 9.1 mg/dL (8.5-10.1) 8.8 mg/dL (8.5-10.1) Magnesium Level 2.1 mg/dL (1.8-2.4) Troponin I Quantitative < 0.017 ng/mL (0.000-0.055) RA-Gsh-I-Type Natriuretic Peptide 9 pg/mL (0-124) Thyroid Stimulating Hormone (TSH) 0.377 uIU/mL (0.358-3.74) Laboratory Tests Test 01/09/21 05:40 White Blood Count 5.9 x10^3/uL (4.0-11.0) Red Blood Count 3.83 x10^6/uL (3.50-5.40) Hemoglobin 12.7 g/dL (12.0-15.5) Hematocrit 37.1 % (36.0-47.0) Mean Corpuscular Volume 97 fL (79-100) Mean Corpuscular Hemoglobin 33 pg (25-35) Mean Corpuscular Hemoglobin Concent 34 g/dL (31-37) Red Cell Distribution Width 14.2 % (11.5-14.5) Platelet Count 264 x10^3/uL (140-400) Neutrophils (%) (Auto) 34 % (31-73) Lymphocytes (%) (Auto) 55 % (24-48) Monocytes (%) (Auto) 8 % (0-9) Eosinophils (%) (Auto) 3 % (0-3) Basophils (%) (Auto) 1 % (0-3) Neutrophils # (Auto) 2.0 x10^3/uL (1.8-7.7) Lymphocytes # (Auto) 3.3 x10^3/uL (1.0-4.8) Monocytes # (Auto) 0.5 x10^3/uL (0.0-1.1) Eosinophils # (Auto) 0.2 x10^3/uL (0.0-0.7) Basophils # (Auto) 0.0 x10^3/uL (0.0-0.2) Sodium Level 137 mmol/L (136-145) Potassium Level 3.9 mmol/L (3.5-5.1) Chloride Level 103 mmol/L (98-107) Carbon Dioxide Level 29 mmol/L (21-32) Anion Gap 5 (6-14) Blood Urea Nitrogen 9 mg/dL (7-20) Creatinine 0.6 mg/dL (0.6-1.0) Estimated GFR (Cockcroft-Gault) 134.0 Glucose Level 90 mg/dL (70-99) Calcium Level 8.8 mg/dL (8.5-10.1) Microbiology 01/08/21 Urine Culture - Final, Complete Medications Current Medications Sodium Chloride 1,000 ml @ 1,000 mls/hr Q1H IV Last administered on 01/08/21at 08:50; Start 01/08/21 at 07:45; Stop 01/08/21 at 08:44; Status DC Morphine Sulfate (Morphine Sulfate) 5 mg 1X ONCE IV Last administered on 01/08/21at 08:51; Start 01/08/21 at 07:45; Stop 01/08/21 at 07:46; Status DC Iohexol (Omnipaque 300 Mg/ml) 75 ml 1X ONCE IV ; Start 01/08/21 at 08:15; Stop 01/08/21 at 08:16; Status DC Info (CONTRAST GIVEN -- Rx MONITORING) 1 each PRN DAILY PRN MC SEE COMMENTS; Start 01/08/21 at 08:15; Stop 01/09/21 at 10:07; Status DC Fentanyl Citrate (Fentanyl 2ml Vial) 75 mcg 1X ONCE IVP Last administered on 01/08/21at 10:12; Start 01/08/21 at 09:45; Stop 01/08/21 at 09:46; Status DC Sodium Chloride 1,000 ml @ 1,000 mls/hr 1X ONCE IV Last administered on 01/08/21at 10:12; Start 01/08/21 at 10:15; Stop 01/08/21 at 11:14; Status DC Iohexol (Omnipaque 350 Mg/ml) 90 ml 1X ONCE IV Last administered on 01/08/21at 10:45; Start 01/08/21 at 10:45; Stop 01/08/21 at 10:47; Status DC Ceftriaxone Sodium (Rocephin) 1 gm 1X ONCE IVP Last administered on 01/08/21at 11:27; Start 01/08/21 at 10:45; Stop 01/08/21 at 10:47; Status DC Hydromorphone HCl (Dilaudid) 1 mg 1X ONCE IVP Last administered on 01/08/21at 13:47; Start 01/08/21 at 13:30; Stop 01/08/21 at 13:36; Status DC Ondansetron HCl (Zofran) 4 mg PRN Q8HRS PRN IVP NAUSEA/VOMITING; Start 01/08/21 at 14:00; Stop 01/09/21 at 10:07; Status DC Morphine Sulfate (Morphine Sulfate) 4 mg PRN Q2HR PRN IVP PAIN Last administered on 01/09/21at 05:44; Start 01/08/21 at 14:00; Stop 01/09/21 at 10:07; Status DC Ceftriaxone Sodium (Rocephin) 1 gm Q24H IVP ; Start 01/09/21 at 11:00; Stop 01/09/21 at 10:07; Status DC Nicotine (Nicoderm Cq 21mg) 1 patch DAILY TD Last administered on 01/08/21at 22:03; Start 01/08/21 at 21:52; Stop 01/09/21 at 10:07; Status DC Alprazolam (Xanax) 0.5 mg PRN Q8HRS PRN PO ANXIETY / AGITATION Last administered on 01/08/21at 22:03; Start 01/08/21 at 21:45; Stop 01/09/21 at 10:07; Status DC Nicotine Polacrilex (Nicorette Gum) 1 each PRN Q1HR PRN BC SMOKING CESSATION Last administered on 01/08/21at 22:03; Start 01/08/21 at 21:45; Stop 01/09/21 at 10:07; Status DC Active Scripts Active Reported No Known Medications Prior To Admisstion (Info) Each 1 Each Vitals/I & O Vital Sign - Last 24 Hours 01/08/21 01/08/21 01/08/21 01/08/21 11:13 11:43 12:13 12:43 Pulse 110 110 110 Resp 13 18 11 B/P (MAP) 162/93 (116) 156/96 (116) 145/89 (107) 145/84 (104) Pulse Ox 97 99 95 O2 Delivery Room Air Room Air Room Air Room Air 01/08/21 01/08/21 01/08/21 01/08/21 13:05 13:13 13:43 13:47 Pulse 114 108 98 Resp 22 B/P (MAP) 137/78 (97) 143/76 (98) 142/83 (102) Pulse Ox 97 97 95 O2 Delivery Room Air Room Air Room Air Room Air 01/08/21 01/08/21 01/08/21 01/08/21 14:13 14:17 14:43 15:13 Pulse 104 98 98 Resp 16 19 11 23 B/P (MAP) 152/89 (110) 137/88 (104) 129/80 (96) Pulse Ox 93 100 94 96 O2 Delivery Room Air Room Air Room Air Room Air 01/08/21 01/08/21 01/08/21 01/08/21 15:43 16:41 17:03 17:33 Pulse 90 110 Resp 23 16 19 B/P (MAP) 142/64 (90) 140/78 (98) Pulse Ox 96 96 95 O2 Delivery Room Air Room Air Room Air 01/08/21 01/08/21 01/08/21 01/08/21 18:40 19:00 19:10 20:00 Temp 98.3 98.3 Pulse 110 95 114 Resp 18 18 B/P (MAP) 145/86 (105) 122/61 (81) 130/86 (101) Pulse Ox 97 96 96 O2 Delivery Room Air Room Air Room Air Room Air 01/08/21 01/08/21 01/08/21 01/09/21 20:48 21:18 23:00 02:50 Temp 98.0 98.2 98.0 98.2 Pulse 69 83 Resp 19 16 B/P (MAP) 105/57 (73) 91/59 (70) Pulse Ox 96 96 95 100 O2 Delivery Room Air Room Air Room Air 01/09/21 01/09/21 01/09/21 05:44 06:14 07:00 Temp 97.8 97.8 Pulse 83 Resp 16 B/P (MAP) 110/70 (83) Pulse Ox 100 100 100 O2 Delivery Room Air Room Air Room Air Intake and Output 01/08/21 01/08/21 01/09/21 15:00 23:00 07:00 Intake Total 2000 ml 500 ml Output Total 700 ml Balance 2000 ml -200 ml Images MRI BRAIN WO Date: 01/08/2021 3:18 PM Indication: left numbness Comparison: CT 01/08/2021. Technique: Multiplanar multisequence MRI of the brain was performed without intravenous contrast using the standard protocol. Findings: No acute infarct. No acute or chronic hemorrhage. The ventricles are normal in size and configuration without hydrocephalus. The scalp and calvarium are normal. The pituitary and sella are normal. No Chiari malformation. The visualized upper cervical spine is normal. The visualized orbits and globes are normal. The visualized paranasal sinuses are clear. The mastoid air cells are clear. Normal flow voids within the vertebral, basilar, and internal carotid arteries indicating patency. IMPRESSION: No acute infarct, hemorrhage, mass, or hydrocephalus. Justicifation of Admission Dx: Justifications for Admission: Justification of Admission Dx: No ALBIN ALEXANDER MD Jan 09, 2021 10:50
[2021-01-09] MEDS ORDERED: cefTRIAXone IV Push 1 GM VIAL. IVP SCH (11:00)
== END 2021-01-09 08:00 | disposition left against medical advice (07) ==
LOC: ER 07:20 → INTOOBSV 13:14 → ED HOLD 13:14 → 6 SOUTH 19:20
PROVIDERS: ADMIT Student in an Organized Health Care Education/Training Program; ATTEND Student in an Organized Health Care Education/Training Program
DX: R07.89 Other chest pain (principal); E07.9 Disorder of thyroid, unspecified; N39.0 Urinary tract infection, site not specified; J39.8 Other specified diseases of upper respiratory tract; M47.812 Spondylosis without myelopathy or radiculopathy, cervical region; M47.814 Spondylosis without myelopathy or radiculopathy, thoracic region; M48.02 Spinal stenosis, cervical region; F32.9 Major depressive disorder, single episode, unspecified; F41.9 Anxiety disorder, unspecified; Z87.891 Personal history of nicotine dependence; Z79.899 Other long term (current) drug therapy; Z82.49 Family history of ischemic heart disease and other diseases of the circulatory system
CPT/HCPCS: 36415; 70496; 70498; 70551; 71045; 71275; 80048; 81001; 81025; 83735; 83880; 84443; 84484; 85025; 87086; 93005; 96361; 96374; 96375; 96376; 99285; G0378; J0696; J1170; J2270; J3010; J7030; Q9967; G0379

== ENCOUNTER 2021-01-13 16:21 | Emergency (ER) | payer OTHER ==
[~2021-01-13] VITALS: Ht 154.9 cm; Wt 80.0 kg
[~2021-01-13 16:21] MED LIST changes: -CLIN-94 PO; +CLIN300C9 PO
[2021-01-13] MEDS ORDERED: IV NORMAL SALINE 1000ML BAG 1,000 ML IV ONE (17:30)
--- NOTE | 2021-01-13 18:28 | PHYS DOC ---
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 She states that she was wanting of her mouth with salt water. She states she may have took too much turmeric. Patient denies pain, fever, nausea, vomiting, diarrhea, cough, shortness of breath, chest pain, blurred vision, numbness or tingling, focal weakness. Patient denies any pain. Patient was here on January 08 which was 5 days ago and had a full work-up of a CT a head and neck, CTA chest, chest x-ray, MRI of the brain. They found lung nodules and thyroid mass. She states she has been taking thyroid medication. Review of Systems: Review of Systems: Constitutional: Denies fever or chills. [] Eyes: Denies change in visual acuity. [] HENT: Denies nasal congestion or sore throat. [] Respiratory: Denies cough or shortness of breath. [] Cardiovascular: Denies chest pain or edema. [] GI: Denies abdominal pain, nausea, vomiting, bloody stools or diarrhea. [] : Denies dysuria. [] Musculoskeletal: Denies back pain or joint pain. [] Integument: Denies rash. + Bruises on skin. +Tiny small open areas from picking.[] Neurologic: Denies headache, focal weakness or sensory changes. [] Endocrine: Denies polyuria or polydipsia. [] Lymphatic: Denies swollen glands. [] Psychiatric: Denies depression or anxiety. [] Heart Score: C/O Chest Pain: No Risk Factors: Risk Factors: DM, Current or recent (<one month) smoker, HTN, HLP, family h istory of CAD, obesity. Risk Scores: Score 0 - 3: 2.5% MACE over next 6 weeks - Discharge Home Score 4 - 6: 20.3% MACE over next 6 weeks - Admit for Clinical Observation Score 7 - 10: 72.7% MACE over next 6 weeks - Early Invasive Strategies Current Medications: Current Medications Medications (Trade) Dose Ordered Sig/Christian Start Time Stop Time Status Last Admin Dose Admin Sodium Chloride 1,000 ml @ 1,000 mls/hr 1X ONCE 01/13/21 17:30 01/13/21 18:29 Allergies: Allergies: Allergies Coded Allergies Type Severity Reaction Last Updated Verified No Known Drug Allergies 11/14/16 No Physical Exam: PE: Constitutional: Well developed, well nourished, no acute distress, non-toxic appearance. [] HENT: Normocephalic, atraumatic, bilateral external ears normal, oropharynx moist, no oral exudates, nose normal. [] Eyes: PERRLA, EOMI, conjunctiva normal, no discharge. [] Neck: Normal range of motion, no tenderness, supple, no stridor. [] Cardiovascular:Heart rate regular rhythm, no murmur [] Lungs & Thorax: Bilateral breath sounds clear to auscultation [] Abdomen: Bowel sounds normal, soft, no tenderness, no masses, no pulsatile masses. [] Skin: Warm, dry, no erythema, no rash. 2 areas of old bruising from needle sticks on bilateral arms. 1 area of picking on the patient's right foot. [] Back: No tenderness, no CVA tenderness. [] Extremities: No tenderness, no cyanosis, no clubbing, ROM intact, no edema. [] Neurologic: Alert and oriented X 3, normal motor function, normal sensory function, no focal deficits noted. [] Psychologic: Affect normal, judgement normal, mood normal. [] Current Patient Data: Vital Signs: Vital Signs Date Time Temp Pulse Resp B/P (MAP) Pulse Ox O2 Delivery O2 Flow Rate FiO2 01/13/21 17:10 98.6 144 18 147/62 (83) 97 Nasal Cannula 98.6 EKG: EK and read by Dr. Isabel as sinus tachycardia no STEMI. Radiology/Procedures: Radiology/Procedures: [] Impression: [facility] [address] [place] [address] IMAGING REPORT Signed PATIENT: KEZIA COLLINS ACCOUNT: [id number] : 1980 LOCATION: ER AGE: 40 SEX: F EXAM STATUS: REG ER ORD. PHYSICIAN: MORGAN MCMULLEN APRN REASON: tachycardia PROCEDURE: PORTABLE CHEST 1V Single view chest dated 01/13/2021 7:09 PM: COMPARISON: 01/08/2021 Clinical Indication: Tachycardia. Findings: Single upright portable exam of the chest was performed. Heart size and mediastinal contours are within normal limits. Lungs are clear. No consolidation or pleural effusion. No pneumothorax. IMPRESSION: No acute radiographic abnormality. Electronically signed by: Marvel Ventura MD (01/13/2021 7:09 PM) [facility] DICTATED and SIGNED BY: MARVEL VENTURA MD DATE: 01/13/21 [id number] Course & Med Decision Making: Course & Med Decision Making Pertinent Labs and Imaging studies reviewed. (See chart for details) See HPI. Alert and oriented x4. Ambulatory steady gait. Skin pink warm and dry. Lungs are clear to auscultation all lobes. Patient has scattered different noninfected areas of which looks like she has been picking. No drainage or cellulitis from wounds. She is positive for marijuana and amphetamines. Her heart rate is in the 120s. Her urine is positive for trichomonas. Patient has 2 different bruising areas on her bilateral arms that look like previous needle sticks. Blood work is unremarkable. Chest x-ray shows no acute findings. I have gone over patient findings and care plan with Dr Monet who agrees with care plan. [] Warren Disclaimer: Warren Disclaimer: This electronic medical record was generated, in whole or in part, using a voice recognition dictation system. Departure Departure Impression: Primary Impression: Amphetamine abuse Additional Impressions: Marijuana abuse Infection due to trichomonas Disposition: HOME / SELF CARE / HOMELESS Condition: STABLE Referrals: NO PCP (PCP) Patient Instructions: Amphetamine Abuse, Marijuana Abuse-Brief, Trichomoniasis Additional Instructions: Follow-up with primary care provider. Drink plenty of fluids. Take ibuprofen for any of your pain. Stop using amphetamines for drugs. Scripts Doxycycline Hyclate (DOXYCYCLINE HYCLATE) 100 Mg Capsule 1 CAP PO BID, #14 CAP Prov: MORGAN MCMULLEN APRN 01/13/21 MORGAN MCMULLEN APRN Jan 13, 2021 18:28
--- NOTE | 2021-01-13 19:11 | RAD ---
Single view chest dated 01/13/2021 7:09 PM: COMPARISON: 01/08/2021 Clinical Indication: Tachycardia. Findings: Single upright portable exam of the chest was performed. Heart size and mediastinal contours are with in normal limits. Lungs are clear. No consolidation or pleural effusion. No pneumothorax. IMPRESSION: No acute radiographic abnormality. Electronically signed by: Marvel Ventura MD (01/13/2021 7:09 PM) BETH
[2021-01-13 19:46] LABS: BILIRUBIN,URINE NEGATIVE (NEG); CLARITY,URINE CLEAR; COLOR,URINE YELLOW; NITRITE,URINE NEGATIVE (NEG); PH,URINE 6.5 (<5.0-8.0); PROTEIN,URINE NEGATIVE (NEG-TRACE)
[2021-01-13 19:51] LABS: AMORPHOUS SEDIMENT,UR PRESENT /HPF; BACTERIA,URINE FEW /HPF (0-FEW); TRICHOMONAS,URINE PRESENT
[2021-01-13 19:52] LABS: BARBITURATES NEG (NEG); BENZODIAZEPINES NEG (NEG); CANNABINOIDS POS (NEG); COCAINE NEG (NEG); METHADONE NEG (NEG); OPIATES POS (NEG); PHENCYCLIDINE NEG (NEG)
[2021-01-13 19:55] LABS: AMPHETAMINE/METHAMPHETAMINE POS (NEG)
[2021-01-13 20:29] LABS: BASO # 0.1 x10^3/uL (0.0-0.2); BASO % 1 % (0-3); EOS % 0 % (0-3); HEMATOCRIT 41.2 % (36.0-47.0); HEMOGLOBIN 14.2 g/dL (12.0-15.5); LYMPH # 2.9 x10^3/uL (1.0-4.8); LYMPH % 33 % (24-48); MEAN CORPUSCULAR HEMOGLOBIN 33 pg (25-35); MEAN CORPUSCULAR HGB CONC 35 g/dL (31-37); MEAN CORPUSCULAR VOLUME 96 fL (79-100); MONO # 0.5 x10^3/uL (0.0-1.1); MONO % 5 % (0-9); NEUT # 5.3 x10^3/uL (1.8-7.7); NEUT % 60 % (31-73); PLATELET COUNT 348 x10^3/uL (140-400); RED BLOOD COUNT 4.29 x10^6/uL (3.50-5.40); WHITE BLOOD COUNT 8.7 x10^3/uL (4.0-11.0)
[2021-01-13 20:42] LABS: CALCIUM 9.2 mg/dL (8.5-10.1); CREATININE 0.9 mg/dL (0.6-1.0); GFR 83.9; POTASSIUM 3.8 mmol/L (3.5-5.1)
[2021-01-13] MEDS ORDERED: DOXY100C3 PO (20:43)
[2021-01-13] MEDS ORDERED: ONDANSETRON ODT 4 MG TAB.RAPDIS. PO ONE (20:45)
[2021-01-13] MEDS ORDERED: metroNIDAZOLE 500 MG TABLET PO ONE (20:45)
[2021-01-13] MEDS ORDERED: cefTRIAXone IV Push 1 GM VIAL. IVP ONE (20:45)
[2021-01-13 20:48] LABS: ALBUMIN 4.4 g/dL (3.4-5.0); ALBUMIN/GLOBULIN RATIO 1.3 (1.0-1.7); MAGNESIUM 2.4 mg/dL (1.8-2.4); TOTAL BILIRUBIN 0.3 mg/dL (0.2-1.0); TOTAL PROTEIN 7.9 g/dL (6.4-8.2)
[2021-01-13] MEDS ORDERED: LIDOCAINE 1% PF 2 ML VIAL. ONE (21:10)
[2021-01-13 21:18] VITALS: BP 187/100
--- NOTE | 2021-01-13 21:26 | EKG ---
[facility] [address] [place] [address] Test Date: 2021-01-13 Test Time: 17:21:44 Pat Name: KEZIA COLLINS Department: Room: Gender: F Tube Cleaner: : 1980 Requested By: MORGAN MCMULLEN Order Number: [id number] Reading MD: Measurements Intervals [place] Rate: 117 P: 28 PA: 144 QRS: 47 QRSD: 74 T: 53 QT: 296 QTc: 417 Interpretive Statements No previous ECG available for comparison
[2021-01-13] MEDS ORDERED: cefTRIAXone IM 1 GM VIAL IM ONE (21:30)
== END 2021-01-13 21:33 | disposition home or self-care (01) ==
LOC: ER 16:21
DX: A59.8 Trichomoniasis of other sites (principal); F15.10 Other stimulant abuse, uncomplicated; F12.10 Cannabis abuse, uncomplicated; F17.200 Nicotine dependence, unspecified, uncomplicated
CPT/HCPCS: 36415; 71045; 80053; 80307; 81001; 83735; 83880; 84484; 85025; 87086; 87491; 87591; 93005; 96360; 96372; 99285; J0696; J7030

== ENCOUNTER 2021-01-14 11:02 | Emergency (ER) | payer OTHER ==
[2021-01-13 21:18] VITALS: BP 187/100
[~2021-01-14] VITALS: Ht 165.1 cm; Wt 70.0 kg
[~2021-01-14 11:02] MED LIST changes: +DOXY100C3 PO
--- NOTE | 2021-01-14 11:23 | PHYS DOC ---
Past Medical History Additional Past Medical Histor: THYROID MASS, Lesions (MORGAN MCMULLEN COMPLIANCE MANAGER) Past Surgical History: No Surgical History (MORGAN MCMULLEN COMPLIANCE MANAGER) Smoking Status: Never Smoker Alcohol Use: None Drug Use: Marijuana (MORGAN MCMULLEN COMPLIANCE MANAGER) General Adult EDM: Chief Complaint: OTHER COMPLAINTS HPI: HPI: Patient is a 40 year old female who presents with states she woke up with left- sided numbness and think she was having convulsions last night. Patient was just worked out for left-sided numbness 5 days ago and even had a full work-up yesterday after saying that she was soaking her body and peroxide, bleach and hand diamond sawer and stating that her feet and tongue were turning yellow. Patient was found to have trichomonas, and meth abuse. Patient denies chest pain, focal weakness, shortness of breath, fever, cough, unable to swallow, dizziness, headache, vision change. (MORGAN MCMULLEN COMPLIANCE MANAGER) Review of Systems: Review of Systems: Constitutional: Denies fever or chills. [] Eyes: Denies change in visual acuity. [] HENT: Denies nasal congestion or sore throat. [] Respiratory: Denies cough or shortness of breath. [] Cardiovascular: Denies chest pain or edema. [] GI: Denies abdominal pain, nausea, vomiting, bloody stools or diarrhea. [] : Denies dysuria. [] Musculoskeletal: Denies back pain or joint pain. [] Integument: Denies rash. [] Neurologic: Denies headache, focal weakness or sensory changes. + Numbness and tingling to left leg and arm [] Endocrine: Denies polyuria or polydipsia. [] Lymphatic: Denies swollen glands. [] Psychiatric: Denies depression or anxiety. [] ([facility] COMPLIANCE MANAGER) Heart Score: C/O Chest Pain: No Risk Factors: Risk Factors: DM, Current or recent (<one month) smoker, HTN, HLP, family history of CAD, obesity. Risk Scores: Score 0 - 3: 2.5% MACE over next 6 weeks - Discharge Home Score 4 - 6: 20.3% MACE over next 6 weeks - Admit for Clinical Observation Score 7 - 10: 72.7% MACE over next 6 weeks - Early Invasive Strategies (MORGAN MCMULLEN APRN) Allergies: Allergies: Allergies Coded Allergies Type Severity Reaction Last Updated Verified No Known Drug Allergies 11/14/16 No (MORGAN MCMULLEN APRN) Physical Exam: PE: Constitutional: Well developed, well nourished, no acute distress, non-toxic appearance. [] HENT: Normocephalic, atraumatic, bilateral external ears normal, oropharynx moist, no oral exudates, nose normal. [] Eyes: PERRLA, EOMI, conjunctiva normal, no discharge. [] Neck: Normal range of motion, no tenderness, supple, no stridor. [] Cardiovascular:Heart rate regular rhythm, no murmur [] Lungs & Thorax: Bilateral breath sounds clear to auscultation [] Abdomen: Bowel sounds normal, soft, no tenderness, no masses, no pulsatile masses. [] Skin: Warm, dry, no erythema, no rash. [] Back: No tenderness, no CVA tenderness. [] Extremities: No tenderness, no cyanosis, no clubbing, ROM intact, no edema. Tight bands wrapped around the left leg, left arm, right arm and are removed [] Neurologic: Alert and oriented X 3, normal motor function, normal sensory function, no focal deficits noted. [] Psychologic: Affect normal, judgement normal, mood normal. [] (MORGAN MCMULLEN APRN) EKG: EKG: [] (MORGAN MCMULLEN APRN) Radiology/Procedures: Radiology/Procedures: [] (MORGAN MCMULLEN APRN) Course & Med Decision Making: Course & Med Decision Making Pertinent Labs and Imaging studies reviewed. (See chart for details) See HPI. Alert and oriented x4. Ambulatory steady gait. Speaks in full clear sentences. Moves all extremities equally with normal strength and equal m ovements. No extremity edema. Patient did have bilateral arm and left lower leg tight bands cutting off some circulation. Her limbs were not purple and she does have great pulses in all extremities. Cap refills less than 2 seconds. After we told the patient to remove the bands as it was cutting off her circulation she stated that she feels much better. Her symptoms resolved. [] (MORGAN MCMULLEN COMPLIANCE MANAGER) Dragon Disclaimer: Dragon Disclaimer: This electronic medical record was generated, in whole or in part, using a voice recognition dictation system. (MORGAN MCMULLEN APRN) Departure Departure Impression: Primary Impression: Encounter for medical screening examination Disposition: HOME / SELF CARE / HOMELESS Condition: STABLE Referrals: NO PCP (PCP) Patient Instructions: Medical Screening Exam Additional Instructions: Drink plenty of water. Take medication as prescribed and with food. Do not s oak in bleach or peroxide or diamond sawer. Attending Signature Attending Signature I have reviewed the PA/PHLEBOTOMIST LAB ASSISTANT's note and plan of care. I was available for consultation as needed during the patient's visit in the emergency department. I agree with the clinical impression, plan, and disposition. (TARYN PITTS DO) MORGAN MCMULLEN APRN Jan 14, 2021 11:23 TARYN PITTS DO Jan 14, 2021 19:03
== END 2021-01-14 11:25 | disposition home or self-care (01) ==
LOC: ER 11:02
DX: R20.0 Anesthesia of skin (principal); R20.2 Paresthesia of skin; Z53.21 Procedure and treatment not carried out due to patient leaving prior to being seen by health care provider
CPT/HCPCS: 99281

== ENCOUNTER 2021-02-06 02:56 | Emergency (ER) | payer OTHER ==
[2021-01-14 11:15] VITALS: BP 145/115
== END 2021-02-06 05:30 | disposition left against medical advice (07) ==
LOC: ER 02:56
DX: H92.09 Otalgia, unspecified ear (principal); Z53.21 Procedure and treatment not carried out due to patient leaving prior to being seen by health care provider

== ENCOUNTER 2021-02-15 11:01 | Emergency (ER) | payer OTHER ==
[~2021-02-15] VITALS: Ht 154.9 cm; Wt 77.2 kg
[~2021-02-15 11:01] MED LIST changes: +CLIN-94 PO; -CLIN300C9 PO
[2021-02-15 11:21] VITALS: BP 116/91
[2021-02-15] MEDS ORDERED: ACET1TAB33 PO (11:36)
--- NOTE | 2021-02-15 11:37 | ED.ADGEN ---
Past Medical History Additional Past Medical Histor: THYROID MASS, Lesions Past Surgical History: No Surgical History Smoking Status: Current Every Day Smoker Alcohol Use: Rarely Drug Use: Marijuana General Adult EDM: Chief Complaint: EARACHE/EAR PAIN HPI: HPI: Patient is a 40-year-old female who arrives ambulatory to the emergency department with multiple medical complaints. Patient has had left ear pain for well over a month. Patient describes her pain as constant and dull. Patient states it originated behind her ear and now is squarely in her ear. Despite this, the patient denies any history of trauma, fever or illness related to her ear. She further denies any drainage or hearing loss. Furthermore the patient reports she has multiple myalgias of her hands, fingers and right forearm. Patient states these are chronic and intermittently swell and has since reduced. Patient also states she awoke with some swelling of her forehead and she was concerned that she may been bitten by an insect because she had itching however that is since subsided. She denies any fevers, shortness of air or chest pain. She is awake, alert and nontoxic-appearing. Review of Systems: Review of Systems: Constitutional: Denies fever or chills. [] Eyes: Denies change in visual acuity. [] HENT: Left ear pain. Denies nasal congestion or sore throat. [] Respiratory: Denies cough or shortness of breath. [] Cardiovascular: Denies chest pain or edema. [] GI: Denies abdominal pain, nausea, vomiting, bloody stools or diarrhea. [] : Denies dysuria. [] Musculoskeletal: Extremity pain, swelling (upper extremities). Denies back pain or joint pain. [] Integument: Denies rash. [] Neurologic: Denies headache, focal weakness or sensory changes. [] Endocrine: Denies polyuria or polydipsia. [] Lymphatic: Denies swollen glands. [] Psychiatric: Denies depression or anxiety. [] Allergies: Allergies: Allergies Coded Allergies Type Severity Reaction Last Updated Verified No Known Drug Allergies 11/14/16 No Physical Exam: PE: Constitutional: Well developed, well nourished, no acute distress, non-toxic appearance. [] HENT: Left ear does have some dried blood on the eardrum. There is no observable trauma otherwise. The drum is intact. Normocephalic, atraumatic, oropharynx moist, no oral exudates, nose normal. [] Eyes: PERRLA, EOMI, conjunctiva normal, no discharge. [] Neck: Normal range of motion, no tenderness, supple, no stridor. [] Cardiovascular:Heart rate regular rhythm, no murmur [] Lungs & Thorax: Bilateral breath sounds clear to auscultation [] Abdomen: Bowel sounds normal, soft, no tenderness, no masses, no pulsatile masses. [] Skin: Warm, dry, no erythema, no rash. [] Back: No tenderness, no CVA tenderness. [] Extremities: Trace swelling of hands bilaterally. No tenderness, no cyanosis, no clubbing, ROM intact, no edema. [] Neurologic: Alert and oriented X 3, normal motor function, normal sensory function, no focal deficits noted. [] Psychologic: Affect normal, judgement normal, mood normal. [] Current Patient Data: Vital Signs: Vital Signs Date Time Temp Pulse Resp B/P (MAP) Pulse Ox O2 Delivery O2 Flow Rate FiO2 02/15/21 11:21 98.1 90 20 116/91 (99) 100 Room Air 98.1 EKG: EKG: [] Heart Score: C/O Chest Pain: No Risk Factors: Risk Factors: DM, Current or recent (<one month) smoker, HTN, HLP, family history of CAD, obesity. Risk Scores: Score 0 - 3: 2.5% MACE over next 6 weeks - Discharge Home Score 4 - 6: 20.3% MACE over next 6 weeks - Admit for Clinical Observation Score 7 - 10: 72.7% MACE over next 6 weeks - Early Invasive Strategies Radiology/Procedures: Radiology/Procedures: [] Course & Med Decision Making: Course & Med Decision Making Pertinent Labs and Imaging studies reviewed. (See chart for details) [] Dragon Disclaimer: Dragon Disclaimer: This electronic medical record was generated, in whole or in part, using a voice recognition dictation system. Departure Departure Impression: Primary Impression: Myalgia and myositis, unspecified Additional Impression: Otalgia of left ear Disposition: HOME / SELF CARE / HOMELESS Condition: STABLE Referrals: NO PCP (PCP) Patient Instructions: Arthralgia, Otalgia Scripts Acetaminophen With Codeine (ACETAMINOPHEN-COD #3 TABLET) 1 Each Tablet 1 TAB PO PRN Q6HRS PRN for PAIN for 3 Days, #12 TAB Prov: SHAWNA WATTERS DO 02/15/21 Problem Qualifiers SHAWNA WATTERS DO Feb 15, 2021 11:37
== END 2021-02-15 11:48 | disposition home or self-care (01) ==
LOC: ER 11:01
DX: M60.9 Myositis, unspecified (principal); M79.18 Myalgia, other site; H92.02 Otalgia, left ear; R22.33 Localized swelling, mass and lump, upper limb, bilateral; F17.200 Nicotine dependence, unspecified, uncomplicated
CPT/HCPCS: 99283

== ENCOUNTER 2021-02-16 07:37 | Emergency (ER) | payer OTHER ==
[~2021-02-16] VITALS: Ht 154.9 cm; Wt 80.6 kg
[~2021-02-16 07:37] MED LIST changes: +ACET1TAB33 PO
--- NOTE | 2021-02-16 08:55 | ED.ADGEN ---
Past Medical History Additional Past Medical Histor: ENLARGED THYROID, OSTEOPOROSIS Past Surgical History: Appendectomy Smoking Status: Current Every Day Smoker Additional Information: 1 PPD Alcohol Use: Rarely Drug Use: Marijuana Social History Narrative: A BLUNT EVERY WEEK OR SO General Adult EDM: Chief Complaint: CHEST PAIN HPI: HPI: Patient is a 40 year old 40-year-old female presents to emergency department multiple planes. Patient was seen for a left earache yesterday. Patient states she woke up this morning and had chest pain on the left that is been going on for 3 days, but did not mention it when she was seen yesterday. Patient is w ezra today. Also complaining of right facial swelling and right ear pain and a "whooshing sound" from her right ear. Patient had been taking amoxicillin she was prescribed 5 days ago by her dentist but quit taking them because she "thought she was allergic to it with the facial swelling". Patient is a poor historian is difficult to ascertain how many days she has had the facial swelling and why she did not mention yesterday. Patient states she took 1 dose of amoxicillin yesterday but quit because she thought she was having allergic reaction and states that the swelling has gotten better since she stopped taking her amoxicillin. She has not had her Covid vaccines patient does not have a primary care provider. Review of Systems: Review of Systems: All other systems within normal limits except for as noted in the HPI Current Medications: Current Medications Medications (Trade) Dose Ordered Sig/Christian Start Time Stop Time Status Last Admin Dose Admin Ketorolac Tromethamine (Toradol Im) 60 mg 1X ONCE 02/16/21 09:45 02/16/21 09:48 DC 02/16/21 09:55 60 MG Allergies: Allergies: Allergies Coded Allergies Type Severity Reaction Last Updated Verified No Known Drug Allergies 11/14/16 No Physical Exam: PE: Constitutional: Well developed, well nourished, no acute distress, non-toxic appearance. [] HENT: Normocephalic, atraumatic, bilateral external ears normal, nose normal. Right TM normal, left TM with small area of redness. No tenderness with manipulation of tragus, no mastoid tenderness or bulging. [] Eyes: PERRLA, conjunctiva normal, no discharge. [] Neck: No rigidity, supple, no stridor. [] No cervical adenopathy, tenderness over right neck Cardiovascular: Regular rate and rhythm, brisk cap refill [] Lungs & Thorax: Non labored symmetric respirations, no tachypnea or respiratory distress [] Abdomen: Soft, nondistended. Skin: Warm, dry, no erythema, no rash. [] Back: Unremarkable Extremities: No deformities, range of motion grossly intact, no lower extremity edema [] Neurologic: Alert and oriented X 3, no focal deficits noted. [] Psychologic: Affect normal, judgement normal, mood normal. [] Current Patient Data: Labs: Laboratory Tests Test 02/16/21 08:45 02/16/21 08:48 02/16/21 09:35 Urine Collection Type Unknown Urine Color Yellow Urine Clarity Clear Urine pH 6.5 (<5.0-8.0) Urine Specific [place] <=1.005 (1.000-1.030) Urine Protein Negative mg/dL (NEG-TRACE) Urine Glucose (UA) Negative mg/dL (NEG) Urine Ketones (Stick) Negative mg/dL (NEG) Urine Blood Negative (NEG) Urine Nitrite Negative (NEG) Urine Bilirubin Negative (NEG) Urine Urobilinogen Dipstick 0.2 mg/dL (0.2 mg/dL) Urine Leukocyte Esterase Negative (NEG) Urine RBC Occ /HPF (0-2) Urine WBC 1-4 /HPF (0-4) Urine Squamous Epithelial Cells Many /LPF Urine Bacteria Few /HPF (0-FEW) Urine Yeast Present /HPF Urine Opiates Screen Pos (NEG) Urine Methadone Screen Neg (NEG) Urine Barbiturates Neg (NEG) Urine Phencyclidine Screen Neg (NEG) Urine Amphetamine/Methamphetamine Neg (NEG) Urine Benzodiazepines Screen Neg (NEG) Urine Cocaine Screen Neg (NEG) Urine Cannabinoids Screen Neg (NEG) Urine Ethyl Alcohol Neg (NEG) POC Urine HCG, Qualitative Hcg negative (Negative) White Blood Count 7.6 x10^3/uL (4.0-11.0) Red Blood Count 3.68 x10^6/uL (3.50-5.40) Hemoglobin 12.1 g/dL (12.0-15.5) Hematocrit 35.7 % (36.0-47.0) L Mean Corpuscular Volume 97 fL (79-100) Mean Corpuscular Hemoglobin 33 pg (25-35) Mean Corpuscular Hemoglobin Concent 34 g/dL (31-37) Red Cell Distribution Width 14.4 % (11.5-14.5) Platelet Count 265 x10^3/uL (140-400) Neutrophils (%) (Auto) 52 % (31-73) Lymphocytes (%) (Auto) 39 % (24-48) Monocytes (%) (Auto) 7 % (0-9) Eosinophils (%) (Auto) 2 % (0-3) Basophils (%) (Auto) 0 % (0-3) Neutrophils # (Auto) 3.9 x10^3/uL (1.8-7.7) Lymphocytes # (Auto) 3.0 x10^3/uL (1.0-4.8) Monocytes # (Auto) 0.5 x10^3/uL (0.0-1.1) Eosinophils # (Auto) 0.1 x10^3/uL (0.0-0.7) Basophils # (Auto) 0.0 x10^3/uL (0.0-0.2) D-Dimer (Danni) 0.41 ug/mlFEU (0.00-0.50) Troponin I Quantitative < 0.017 ng/mL (0.000-0.055) XY-Bfe-B-Type Natriuretic Peptide 57 pg/mL (0-124) Laboratory Tests 02/16/21 09:35 Vital Signs: Vital Signs Date Time Temp Pulse Resp B/P (MAP) Pulse Ox O2 Delivery O2 Flow Rate FiO2 02/16/21 10:00 76 18 136/92 (107) 100 Room Air 02/16/21 08:20 98.9 98.9 EKG: EKG: [] Sinus rhythm, heart rate 85 bpm, normal axis, no ST elevation or depression, no ectopy. Heart Score: C/O Chest Pain: Yes HEART Score for Chest Pain: HEART Score for Chest Pain Response (Comments) Value History Slighlty/Non-Suspicious 0 ECG Normal 0 Age < 45 0 Risk Factors 1 or 2 Risk Factors 1 Troponin < Normal Limit 0 Total 1 Risk Factors: Risk Factors: DM, Current or recent (<one month) smoker, HTN, HLP, family history of CAD, obesity. Risk Scores: Score 0 - 3: 2.5% MACE over next 6 weeks - Discharge Home Score 4 - 6: 20.3% MACE over next 6 weeks - Admit for Clinical Observation Score 7 - 10: 72.7% MACE over next 6 weeks - Early Invasive Strategies Radiology/Procedures: Radiology/Procedures: [] Course & Med Decision Making: Course & Med Decision Making [id number] notified the patient eloped from emergency department Warren Disclaimer: Warren Disclaimer: This electronic medical record was generated, in whole or in part, using a voice recognition dictation system. Departure Departure Impression: Primary Impression: Chest pain Additional Impression: Encounter for medical screening examination Disposition: 07 LEFT AWOL/ELOPED Condition: STABLE Referrals: NO PCP (PCP) Problem Qualifiers WILFREDO GÓMEZ MD Feb 16, 2021 08:55
[2021-02-16 09:01] LABS: BILIRUBIN,URINE NEGATIVE (NEG); CLARITY,URINE CLEAR; COLOR,URINE YELLOW; NITRITE,URINE NEGATIVE (NEG); PH,URINE 6.5 (<5.0-8.0); PROTEIN,URINE NEGATIVE (NEG-TRACE); UROBILINOGEN,URINE 0.2 mg/dL (0.2 mg/dL)
[2021-02-16 09:07] LABS: BARBITURATES NEG (NEG); BENZODIAZEPINES NEG (NEG); CANNABINOIDS NEG (NEG); COCAINE NEG (NEG); METHADONE NEG (NEG); OPIATES POS (NEG); PHENCYCLIDINE NEG (NEG)
[2021-02-16 09:08] LABS: AMPHETAMINE/METHAMPHETAMINE NEG (NEG)
[2021-02-16 09:15] LABS: YEAST,URINE PRESENT /HPF
[2021-02-16 09:16] LABS: BACTERIA,URINE FEW /HPF (0-FEW); RBC,URINE OCC /HPF (0-2)
[2021-02-16] MEDS ORDERED: KETOROLAC 60 MG/2 ML VIAL. IM ONE (09:45)
[2021-02-16 09:47] LABS: BASO % 0 % (0-3); EOS # 0.1 x10^3/uL (0.0-0.7); EOS % 2 % (0-3); HEMATOCRIT 35.7 % (36.0-47.0); HEMOGLOBIN 12.1 g/dL (12.0-15.5); LYMPH % 39 % (24-48); MEAN CORPUSCULAR HEMOGLOBIN 33 pg (25-35); MEAN CORPUSCULAR HGB CONC 34 g/dL (31-37); MEAN CORPUSCULAR VOLUME 97 fL (79-100); MONO # 0.5 x10^3/uL (0.0-1.1); MONO % 7 % (0-9); NEUT # 3.9 x10^3/uL (1.8-7.7); NEUT % 52 % (31-73); PLATELET COUNT 265 x10^3/uL (140-400); RED BLOOD COUNT 3.68 x10^6/uL (3.50-5.40); RED CELL DISTRIBUTION WIDTH 14.4 % (11.5-14.5); WHITE BLOOD COUNT 7.6 x10^3/uL (4.0-11.0)
[2021-02-16 10:00] VITALS: BP 136/92
--- NOTE | 2021-02-16 11:36 | EKG ---
[facility] [address] [place] [address] Test Date: 2021-02-16 Test Time: 07:46:24 Pat Name: KEZIA COLLINS Department: Room: Gender: F Environmental Health Physician: : [id number] Requested By: WILFREDO GÓMEZ Order Number: [id number] Reading MD: Yehuda Myers Measurements Intervals [place] Rate: 85 P: 40 IA: 168 QRS: 31 QRSD: 72 T: 24 QT: 348 QTc: 414 Interpretive Statements SINUS RHYTHM Electronically Signed On 02-22-2021 13:07:57 CDT by Yehuda Myers
== END 2021-02-16 10:10 | disposition left against medical advice (07) ==
LOC: ER 07:37
DX: R07.89 Other chest pain (principal); F17.200 Nicotine dependence, unspecified, uncomplicated; H92.01 Otalgia, right ear; R22.0 Localized swelling, mass and lump, head
CPT/HCPCS: 36415; 80307; 81001; 81025; 83880; 84484; 85025; 85379; 93005; 96372; 99284; J1885

== ENCOUNTER 2021-03-25 17:07 | Emergency (ER) | payer OTHER ==
[~2021-03-25] VITALS: Ht 154.9 cm; Wt 81.7 kg
[~2021-03-25 17:07] MED LIST changes: +METH5TAB30 PO; -METH5TAB6 PO
[2021-03-25] MEDS ORDERED: LIDOCAINE 2% VISCOUS 15 ML SOLUTION. SWSW ONE (18:00)
[2021-03-25] MEDS ORDERED: METOPROLOL SUCC 24HR ER 25 MG TAB.ER.24H. PO ONE (18:00)
[2021-03-25] MEDS ORDERED: metroNIDAZOLE 500 MG TABLET PO ONE (18:00)
[2021-03-25] MEDS ORDERED: cefTRIAXone IM 500 MG VIAL. IM ONE (18:00)
--- NOTE | 2021-03-25 18:16 | PHYS DOC ---
Past Medical History Additional Past Medical Histor: ENLARGED THYROID,OSTEOPOROSIS,OSTEOARTHRITIS (DAVID CUTLER [employer]) Past Surgical History: Appendectomy (DAVID CUTLER [employer]) Smoking Status: Current Every Day Smoker Additional Information: 1 PPD Alcohol Use: Rarely Drug Use: Marijuana (DAVID CUTLER [employer]) General Adult EDM: Chief Complaint: MULTIPLE COMPLAINTS HPI: HPI: Patient is a 40 year old female who presents to the ED today with multiple complaints. Patient is complaining of chronic low back pain and hip pain. Patient states it has been going on for months. She states in October she was given an injection to her back by PCP which relieved the pain for a while then the pain returned. Patient states she was told she has arthritis to her hips, back. She states symptoms are worse at work. She states she works as a [employer] and this makes her pain worse. She is also complaining of pain to bilateral exterior ears. She states she has a rash that has been there for months. She states she has been seen at multiple emergency rooms including , [facility] and they told her ears are normal. She is also complaining of hypertension but states she does not take medicines. She is also complaining of being exposed to trichomonas and would like to be treated. Patient was also complaining her hands are cold but when she touched my hands they were colder than hers so she stopped the complaint (DAVID CUTLER [employer]) Review of Systems: Review of Systems: Constitutional: Denies fever or chills. [] Eyes: Denies change in visual acuity. [] HENT: Reports bilateral ear pain with rash. Reports loss on the time. Denies nasal congestion Respiratory: Denies cough or shortness of breath. [] Cardiovascular: Reports high blood pressure. Denies chest pain or edema. [] GI: Denies abdominal pain, nausea, vomiting, bloody stools or diarrhea. [] : Denies dysuria. [] Musculoskeletal: Reports chronic low back pain and bilateral hip pain] Integument: Denies rash. [] Neurologic: Denies headache, focal weakness or sensory changes. [] Psychiatric: Denies depression or anxiety. [] (DAVID CUTLER [employer]) Heart Score: C/O Chest Pain: N/A Risk Factors: Risk Factors: DM, Current or recent (<one month) smoker, HTN, HLP, family history of CAD, obesity. Risk Scores: Score 0 - 3: 2.5% MACE over next 6 weeks - Discharge Home Score 4 - 6: 20.3% MACE over next 6 weeks - Admit for Clinical Observation Score 7 - 10: 72.7% MACE over next 6 weeks - Early Invasive Strategies (NAEPRATIKDAVID Cao [employer]) Current Medications: Current Medications Medications (Trade) Dose Ordered Sig/Christian Start Time Stop Time Status Last Admin Dose Admin Ceftriaxone Sodium (Rocephin Im) 500 mg 1X ONCE 03/25/21 18:00 03/25/21 18:03 DC Lidocaine HCl (Viscous Lidocaine) 15 ml 1X ONCE 03/25/21 18:00 03/25/21 18:03 DC Metoprolol Succinate (Toprol Xl) 25 mg 1X ONCE 03/25/21 18:00 03/25/21 18:03 DC Metronidazole (Flagyl) 2,000 mg 1X ONCE 03/25/21 18:00 03/25/21 18:03 DC (HEDAVID M [employer]) Allergies: Allergies: Allergies Coded Allergies Type Severity Reaction Last Updated Verified No Known Drug Allergies 11/14/16 No (DAVID CUTLER Kiley [employer]) Physical Exam: PE: Constitutional: Well developed, well nourished, no acute distress, non-toxic appearance. [] HENT: Normocephalic, atraumatic, bilateral external ears normal, oropharynx moist, no oral exudates, nose normal. Bilateral inner and exterior ears were examined, no lesions are noted. Eyes: PERRLA, EOMI, conjunctiva normal, no discharge. [] Neck: Normal range of motion, no tenderness, supple, no stridor. [] Cardiovascular:Heart rate regular rhythm, no murmur [] Lungs & Thorax: Bilateral breath sounds clear to auscultation [] Abdomen: Bowel sounds normal, soft, no tenderness, no masses, no pulsatile masses. [] Skin: Warm, dry, no erythema, no rash. [] Back: No tenderness, no CVA tenderness. [] Extremities: No tenderness, no cyanosis, no clubbing, ROM intact, no edema. [] Neurologic: Alert and oriented X 3, normal motor function, normal sensory function, no focal deficits noted. [] Psychologic: Flat affect, tearful, depressed mood, no suicidal homicidal ideations (DAVID CUTLER [employer]) Current Patient Data: Vital Signs: Vital Signs Date Time Temp Pulse Resp B/P (MAP) Pulse Ox O2 Delivery O2 Flow Rate FiO2 03/25/21 17:10 98.3 108 18 175/104 (127) 100 Room Air 98.3 (DAVID CUTLER [employer]) EKG: EKG: [] (DAVID CUTLER [employer]) Radiology/Procedures: Radiology/Procedures: [] (DAVID CUTLER [employer]) Course & Med Decision Making: Course & Med Decision Making Pertinent Labs and Imaging studies reviewed. (See chart for details) This is a 40-year-old female patient presenting to the ED with multiple complaints. Patient is well-known to this ED. All of her complaints are chronic, see HPI. I discharged her home to follow-up with her own PCP. (DAVID CUTLER CARLOS) Dragon Disclaimer: Dragon Disclaimer: This electronic medical record was generated, in whole or in part, using a voice recognition dictation system. (DAVID CUTLER [employer]) Departure Departure Impression: Primary Impression: Chronic low back pain Qualified Codes: M54.42 - Lumbago with sciatica, left side; M54.41 - Lumbago with sciatica, right side; G89.29 - Other chronic pain Additional Impression: Concern about STD in male without diagnosis Disposition: 01 HOME / SELF CARE / HOMELESS Condition: STABLE Referrals: NO PCP (PCP) Follow-up with your doctor as soon as you can Patient Instructions: Back Pain, Adult Additional Instructions: Please take the prescribed medications as ordered and follow-up with your primary care doctor as soon as you can Scripts Lidocaine (Lidocaine) 1 Each Adh..patch 1 EACH TP DAILY, #7 PATCH Prov: DAVID CUTLER CARLOS 03/25/21 Diclofenac Potassium (DICLOFENAC POTASSIUM) 50 Mg Tablet 1 TAB PO BID, #20 TAB Prov: DAVID CUTLER CARLOS 03/25/21 Doxycycline Hyclate (DOXYCYCLINE HYCLATE) 100 Mg Tablet 1 TAB PO BID, #14 TAB Prov: DAVID CUTLER CARLOS 03/25/21 Diazepam (VALIUM) 10 Mg Tablet 10 MG PO TID, #12 TAB Prov: DAVID CUTLER CARLOS 03/25/21 Attending Signature Attending Signature I have reviewed the PA/SALES OPERATIONS LEAD's note and plan of care. I was available for consultation as needed during the patient's visit in the emergency department. I agree with the clinical impression, plan, and disposition. (TARYN PITTS DO) DAVID CUTLER APRN Mar 25, 2021 18:16 TARYN PITTS DO Mar 26, 2021 06:08
[2021-03-25] MEDS ORDERED: DICL50TA2 PO (18:28)
[2021-03-25] MEDS ORDERED: DOXY100T PO (18:28)
[2021-03-25] MEDS ORDERED: VALIUM10 MG PO (18:28)
[2021-03-25] MEDS ORDERED: LIDO1ADH63 TP (18:35)
[2021-03-25 19:00] VITALS: BP 152/101
== END 2021-03-25 19:00 | disposition home or self-care (01) ==
LOC: ER 17:07
DX: G89.29 Other chronic pain (principal); Z20.2 Contact with and (suspected) exposure to infections with a predominantly sexual mode of transmission; M54.41 Lumbago with sciatica, right side; M54.42 Lumbago with sciatica, left side; F17.200 Nicotine dependence, unspecified, uncomplicated
CPT/HCPCS: 96372; 99284; J0696

== ENCOUNTER 2021-04-22 17:28 | Emergency (ER) | payer OTHER ==
[~2021-04-22] VITALS: Ht 154.9 cm; Wt 180.0 kg
[~2021-04-22 17:28] MED LIST changes: +DICL50TA2 PO; +DOXY100T PO; +LIDO1ADH63 TP; +VALIUM10 MG PO
[2021-04-22] MEDS ORDERED: DEXAMETHASONE 4 MG TABLET PO ONE (19:15)
[2021-04-22] MEDS ORDERED: IBUPROFEN 200 MG TABLET. PO ONE (19:15)
[2021-04-22] MEDS ORDERED: cefTRIAXone IM 500 MG VIAL. IM ONE (19:15)
[2021-04-22 19:20] VITALS: BP 158/92
[2021-04-22] MEDS ORDERED: AMOX500C PO (19:20)
--- NOTE | 2021-04-22 19:21 | PHYS DOC ---
Past Medical History Additional Past Medical Histor: ENLARGED THYROID,OSTEOPOROSIS,OSTEOARTHRITIS Past Surgical History: Appendectomy Smoking Status: Current Every Day Smoker Alcohol Use: Rarely Drug Use: Marijuana General Adult EDM: Chief Complaint: EARACHE/EAR PAIN HPI: HPI: Patient is a 40 year old female who presents with 3 days of right ear pain with drainage, facial pain with nasal congestion, vaginal tingling, sore throat, cou gh. Patient states she would like to be checked for sexually transmitted diseases. She stated that last month she was diagnosed with trichomonas and she stopped at the same diet again. Patient has a history of trichomonas, appendectomy, boils, enlarged thyroid, osteoporosis, osteoarthritis. Rates her pain a 9 out of 10. Denies chest pain, shortness of breath, dizziness, syncope, focal weakness, abdominal pain, nausea, vomiting, diarrhea. Review of Systems: Review of Systems: Constitutional: Denies fever or chills. [] Eyes: Denies change in visual acuity. [] HENT: +nasal congestion or +sore throat. [] Respiratory: + cough or denies shortness of breath. [] Cardiovascular: Denies chest pain or edema. [] GI: Denies abdominal pain, nausea, vomiting, bloody stools or diarrhea. [] : Denies dysuria. +vaginal tingling[] Musculoskeletal: Denies back pain or joint pain. [] Integument: Denies rash. [] Neurologic: + headache, +face pain, denies focal weakness or sensory changes. [] Endocrine: Denies polyuria or polydipsia. [] Lymphatic: Denies swollen glands. [] Psychiatric: Denies depression or anxiety. [] Heart Score: C/O Chest Pain: No Allergies: Allergies: Allergies Coded Allergies Type Severity Reaction Last Updated Verified No Known Drug Allergies 11/14/16 No Physical Exam: PE: Constitutional: Well developed, well nourished, no acute distress, non-toxic appearance. [] HENT: Normocephalic, atraumatic, bilateral external ears normal, oropharynx moist, no oral exudates, nose normal. Postnasal drip. Sinus tenderness with palpation. Right ear drainage with redness. No mastoid tenderness. [] Eyes: PERRLA, EOMI, conjunctiva normal, no discharge. [] Neck: Normal range of motion, no tenderness, supple, no stridor. [] Cardiovascular:Heart rate regular rhythm, no murmur [] Lungs & Thorax: Bilateral breath sounds clear to auscultation [] Abdomen: Bowel sounds normal, soft, no tenderness, no masses, no pulsatile masses. [] Skin: Warm, dry, no erythema, no rash. [] Back: No tenderness, no CVA tenderness. [] Extremities: No tenderness, no cyanosis, no clubbing, ROM intact, no edema. [] Neurologic: Alert and oriented X 3, normal motor function, normal sensory function, no focal deficits noted. [] Psychologic: Affect normal, judgement normal, mood normal. [] EKG: EKG: [] Radiology/Procedures: Radiology/Procedures: [] Course & Med Decision Making: Course & Med Decision Making Pertinent Labs and Imaging studies reviewed. (See chart for details) COVID-19 CRITERIA: The patient was evaluated during the global COVID-19 pandemic, and that diagnosis was suspected/considered upon their initial presentation. Their evaluation, treatment and testing was consistent with current guidelines for patients who present with complaints or symptoms that may be related to COVID-19. See HPI. Alert and oriented x4. Ambulatory steady gait. Speaks in full clear sentences. Denies any kind of vaginal sores but states that she has had some vaginal discharge. Denies urinary symptoms. Abdomen soft and nontender. No CVA tenderness. Lungs are clear to all station all lobes. Throat is pink without exudates with 1+ left tonsil swelling and postnasal drip present. Sinus tenderness with palpation over maxillary and frontal sinuses. Skin pink warm and dry. Afebrile. [] Dragon Disclaimer: Dragon Disclaimer: This electronic medical record was generated, in whole or in part, using a voice recognition dictation system. Departure Departure Impression: Primary Impression: Concern about STD in male without diagnosis Additional Impressions: Otitis media Qualified Codes: H66.001 - Acute suppurative otitis media without spontaneous rupture of ear drum, right ear Sinusitis Qualified Codes: J01.10 - Acute frontal sinusitis, unspecified Person under investigation for COVID-19 Disposition: HOME / SELF CARE / HOMELESS Condition: STABLE Referrals: NO PCP (PCP) Patient Instructions: Otitis Media, Adult, Sexually Transmitted Disease, Sinus Headache, [id number], Sinusitis Additional Instructions: Follow-up with primary care provider if needed. Take medication as prescribed and with food. Drink plenty of fluids to stay hydrated. Take ibuprofen or Tylenol for your pain. You begin having severe shortness of breath or cannot keep down any kind of fluids return emergency room. You have been tested for or diagnosed with COVID-19. It is an infection caused by a new type of coronavirus. COVID-19 will cause cold-like or mild flu symptoms in most. It can cause more severe symptoms like problems breathing in some. There is no treatment for COVID-19. The body will clear the infection over time. Self-care will help to ease discomfort. Steps to Take: Self-Care Rest as needed. Healthy habits may help you feel better. Steps include: Choose healthy foods including fruits and vegetables. Drink water throughout the day. Get plenty of sleep each night. If you smoke, try to quit. It may ease breathing. Avoid alcohol. Keep Others Healthy The virus can spread to others. Droplets are released every time you sneeze or cough. The droplets can get into the mouth, nose, or eyes of people near you and lead to infection. To lower the chances of spreading COVID-19 to others: Stay at home until your doctor has said it is safe to leave. If you tested positive this will mean staying isolated until both of the following are true: At least 7 days have passed since the start of illness. You are free of fever for at least 72 hours without the use of medicine. During this time: - Avoid public areas, events, or transportation. Do not return to work or school until your doctor has said it is safe to do so. - Call ahead if you need to go to a medical center. Let them know you may have COVID-19. It will help them guide you where to go. They may also ask you to wear a facemask when you come to the office. - If you call for emergency medical services, let them know you may have COVID- 19. While at home: - Try to avoid close contact with others. Stay about 6 feet away. - If possible, spend most of your time in a separate room from others. - Use a face mask if you will be in close contact with others such as sharing a room or vehicle. - Have someone wipe down common surfaces in the home. Use household chief internal auditor every day on areas like doorknobs, counters, or sinks. - Cough or sneeze into a tissue. Throw the tissue away right after use. If a tissue is not available, cough or sneeze into your elbow. - Wash your hands often. Wash them after sneezing or coughing. Use soap and water and wash for at least 20 seconds. Alcohol based hand acid cleaner can be used if soap and water is not available. - Do not prepare food for others. Avoid sharing personal items like forks, spoons, or toothbrushes. - Avoid close contact with pets while you are sick. There is no evidence of the virus passing to pets. This is a safety step until more is known about this virus. Isolation can be frustrating. Social interaction can help. Keep in touch with friends and family through phone and tech options. You can still interact with others in your home, just keep a safe distance of about 6 feet. Follow-up: Your doctors office will check in with you to see if there are any changes in your health. You may be asked to keep track of symptoms to share with them. They will also let you know when you are clear to be in public again. Problems to Look Out For: Contact your doctor if your recovery is not going as you expect. Get emergency care if you have problems such as: - Trouble breathing - Nonstop chest pain or pressure - Changes in awareness, confusion, or problems waking - Lips or face have bluish color - Worsening of symptoms If you think you have an emergency, call for emergency medical services right away. As taken from [facility] Amoxicillin (AMOXICILLIN) 500 Mg Capsule 1 CAP PO BID, #20 CAP Prov: MORGAN MCMULLEN APRN 04/22/21 MORGAN MCMULLEN APRN Apr 22, 2021 19:21
[2021-04-22 19:56] LABS: BILIRUBIN,URINE NEGATIVE (NEG); CLARITY,URINE CLOUDY; COLOR,URINE YELLOW; NITRITE,URINE NEGATIVE (NEG); PROTEIN,URINE NEGATIVE (NEG-TRACE)
[2021-04-22 20:03] LABS: AMORPHOUS SEDIMENT,UR PRESENT /HPF; BACTERIA,URINE 0 /HPF (0-FEW); RBC,URINE 0 /HPF (0-2)
--- NOTE | 2021-04-23 16:34 | NUR ---
IP: Informed pt of negative covd test. Pt verbalized understanding.
[2021-04-26 08:19] LABS: GC PROBE Negative (Negative)
== END 2021-04-22 20:29 | disposition home or self-care (01) ==
LOC: ER 17:28
DX: H66.001 Acute suppurative otitis media without spontaneous rupture of ear drum, right ear (principal); J01.10 Acute frontal sinusitis, unspecified; Z20.828 Contact with and (suspected) exposure to other viral communicable diseases; Z20.2 Contact with and (suspected) exposure to infections with a predominantly sexual mode of transmission; F17.200 Nicotine dependence, unspecified, uncomplicated
CPT/HCPCS: 81001; 81025; 87426; 87491; 87591; 96372; 99283; J0696; Q0111; U0003; U0005

== ENCOUNTER 2021-04-29 12:24 | Emergency (ER) | payer OTHER ==
[~2021-04-29] VITALS: Ht 157.5 cm; Wt 82.9 kg
[~2021-04-29 12:24] MED LIST changes: +AMOX500C PO
[2021-04-29 12:35] VITALS: BP 158/92
--- NOTE | 2021-04-29 14:17 | PHYS DOC ---
Past Medical History Additional Past Medical Histor: ENLARGED THYROID,OSTEOPOROSIS,OSTEOARTHRITIS Past Surgical History: Appendectomy Smoking Status: Current Every Day Smoker Additional Information: 1 PPD Alcohol Use: None Drug Use: Marijuana General Adult EDM: Chief Complaint: MULTIPLE COMPLAINTS HPI: HPI: Patient is a 40 year old female who presents with multiple complaints. These complaints include concern for a "whooshing" sound in her ear, infection on her hairline, left eye watery discharge and irritation, dark spots to the skin on her face, a painful "bump" on her left buttock, stool abnormality and results of the labs that were drawn on her last visit to the emergency department. Patient is a difficult historian, as she has multiple unrelated complaints for which she does not have timelines. Additionally, she reports she has sought evaluation for several of her complaints in the past. She reports she was recently treated with antibiotics for multiple diagnoses, but she is unsure what they were. Patient reports the sound in her ear is intermittent, but she is unable to lateralize. She denies any ear pain. She states she has a "bump" that has white discharge to the auricle of her right ear. She states it has been there for greater than 1 year. Her concern for infection on her hairline is central. She denies any discharge, erythema, urticaria. Patient reports her left eye has been watery for a few days and the skin between her eye and the bridge of her nose feels irritated as well. She denies any purulent discharge, vision changes or visual field deficits. The darkening spots on her face have been evaluated multiple times, but she has persistent concern about what causes it. The lesion on her left buttock has bothered her for a few months, and causes pain when she applies pressure when sitting or laying in bed. Patient reports a 3-day history of constipation. However, when she passed a bowel movement today she states there was a "white glob." She describes the look in consistency similar to lotion. She denies fever, chills, chest pain, palpitations, shortness of breath, cough, abdominal pain, NVD, bloody stool. Review of Systems: Review of Systems: 12 systems reviewed. ROS negative except as mentioned in HPI. Heart Score: C/O Chest Pain: No Allergies: Allergies: Allergies Coded Allergies Type Severity Reaction Last Updated Verified No Known Drug Allergies 11/14/16 No Physical Exam: PE: Constitutional: Well developed, well nourished, no acute distress, non-toxic appearance. HENT: Normocephalic, atraumatic. Bilateral external ears normal, bilateral ear canals nonerythematous without purulent discharge, bilateral tympanic membranes without rupture, fluid level, bulging, erythema. Oropharynx moist, no oral exudates, nose normal. Eyes: PERRLA, EOMI, conjunctiva normal, no discharge. Cardiovascular: Heart rate regular rhythm, no murmur. Lungs & Thorax: Bilateral breath sounds clear to auscultation. Skin: Warm, dry, no erythema, no rash. Well-circumscribed, mobile, firm nodule noted to the right buttock deep to the skin; no erythema, lesion, rash, tenderness. Current Patient Data: Vital Signs: Vital Signs Date Time Temp Pulse Resp B/P (MAP) Pulse Ox O2 Delivery O2 Flow Rate FiO2 04/29/21 12:35 98.7 94 16 158/92 (114) 99 Room Air 98.7 Course & Med Decision Making: Course & Med Decision Making Pertinent Labs and Imaging studies reviewed. (See chart for details) On arrival to the department, patient was unsatisfied with registration desk staff. The postal clerk informed her that she would not medical staff, and that she did not need to take medical history. This irritated the patient significantly. While in the department, she mentioned to multiple staff members that she did not want to see the provider that treated her here in the department on her last visit "under advice of legal consultant." She also requested information about contacting medical records for her documentation to be released to legal consultant. Additionally, when registration staff came into the patient's room to obtain consent for treatment and verify registration information, patient was reluctant to sign paperwork. I informed her that the consent to treat was necessary for emergency department treatment. She reluctantly agreed to sign paperwork, however was extremely unhappy with the fact that the postal clerk informed me of her initial refusal to sign. Patient presents with multiple complaints, none of which require emergent or surgical care. Plan of care will be to provide patient with specialist referrals including dermatology, ophthalmology and gastroenterology. After history and exam, I left the patient's room to complete documentation and attend to other patients. After some time, patient asked department staff "well, what are we waiting on?" She then told nursing staff that she was going to leave the department, as she was unsatisfied with the amount of time she has been in the department. I went into the patient's room to inform her that I was working on her discharge documentation and asked that she stay in the department for a few minutes to allow for completion. She became increasingly agitated as the conversation went on and left the department AGAINST MEDICAL ADVICE. I informed her that should she leave, she risked worsening symptoms, permanent disability or . She motioned with her hand to me, but refused to sign AMA paperwork. Warren Disclaimer: Warren Disclaimer: This electronic medical record was generated, in whole or in part, using a voice recognition dictation system. Departure Departure Impression: Primary Impression: Left against medical advice Disposition: 07 LEFT AGAINST MEDICAL ADVICE Condition: GUARDED Referrals: NO PCP (PCP) PARIS ALEXIS Apr 29, 2021 14:17
== END 2021-04-29 14:15 | disposition left against medical advice (07) ==
LOC: ER 12:24
DX: H57.89 Other specified disorders of eye and adnexa (principal); F17.200 Nicotine dependence, unspecified, uncomplicated
CPT/HCPCS: 99281

== ENCOUNTER 2021-08-07 14:36 | Emergency (ER) | payer OTHER ==
[~2021-08-07] VITALS: Ht 154.9 cm; Wt 86.3 kg
[2021-08-07 14:45] VITALS: BP 159/98
== END 2021-08-07 16:24 | disposition left against medical advice (07) ==
LOC: ER 14:36
DX: R07.89 Other chest pain (principal); Z53.21 Procedure and treatment not carried out due to patient leaving prior to being seen by health care provider

== ENCOUNTER 2021-09-25 11:01 | Emergency (ER) | payer SELFPAY ==
[~2021-09-25] VITALS: Ht 154.9 cm; Wt 81.0 kg
[~2021-09-25 11:01] MED LIST changes: -ACET1TAB33 PO; +ACET1TAB56 PO
[2021-09-25 12:14] VITALS: BP 116/76
[2021-09-25] MEDS ORDERED: DEXAMETHASONE 4 MG TABLET PO ONE (13:15)
[2021-09-25] MEDS ORDERED: HYDROcodone/APAP 5/325MG 1 TAB TABLET PO ONE (13:15)
[2021-09-25] MEDS ORDERED: ORPHENADRINE CITRATE 60 MG/2 ML VIAL. IM ONE (13:15)
[2021-09-25] MEDS ORDERED: ORPH100T PO (13:23)
[2021-09-25] MEDS ORDERED: HYDR-2761 PO (13:23)
[2021-09-25] MEDS ORDERED: PRED20TA PO (13:23)
--- NOTE | 2021-09-25 13:24 | PHYS DOC ---
Past Medical History Additional Past Medical Histor: ENLARGED THYROID,OSTEOPOROSIS,OSTEOARTHRITIS; gout Past Surgical History: No Surgical History Smoking Status: Current Every Day Smoker Alcohol Use: Occasionally Drug Use: Marijuana General Adult EDM: Chief Complaint: PAIN CONTROL HPI: HPI: Patient is a 41 year old [f__sex] who presents with [] Review of Systems: Review of Systems: Constitutional: Denies fever or chills. [] Eyes: Denies change in visual acuity. [] HENT: Denies nasal congestion or sore throat. [] Respiratory: Denies cough or shortness of breath. [] Cardiovascular: Denies chest pain or edema. [] GI: Denies abdominal pain, nausea, vomiting, bloody stools or diarrhea. [] : Denies dysuria. [] Musculoskeletal: Denies back pain or joint pain. [] Integument: Denies rash. [] Neurologic: Denies headache, focal weakness or sensory changes. [] Endocrine: Denies polyuria or polydipsia. [] Lymphatic: Denies swollen glands. [] Psychiatric: Denies depression or anxiety. [] Heart Score: Risk Factors: Risk Factors: DM, Current or recent (<one month) smoker, HTN, HLP, family his tory of CAD, obesity. Risk Scores: Score 0 - 3: 2.5% MACE over next 6 weeks - Discharge Home Score 4 - 6: 20.3% MACE over next 6 weeks - Admit for Clinical Observation Score 7 - 10: 72.7% MACE over next 6 weeks - Early Invasive Strategies Current Medications: Current Medications Medications (Trade) Dose Ordered Sig/Christian Start Time Stop Time Status Last Admin Dose Admin Acetaminophen/ Hydrocodone Bitart (Lortab 5/325) 1 tab 1X ONCE 09/25/21 13:15 09/25/21 13:16 UNV Dexamethasone (Decadron) 10 mg 1X ONCE 09/25/21 13:15 09/25/21 13:16 UNV Orphenadrine Citrate (Norflex) 60 mg 1X ONCE 09/25/21 13:15 09/25/21 13:16 UNV Allergies: Allergies: Allergies Coded Allergies Type Severity Reaction Last Updated Verified No Known Drug Allergies 08/07/21 No Physical Exam: PE: Constitutional: Well developed, well nourished, no acute distress, non-toxic appearance. [] HENT: Normocephalic, atraumatic, bilateral external ears normal, oropharynx moist, no oral exudates, nose normal. [] Eyes: PERRLA, EOMI, conjunctiva normal, no discharge. [] Neck: Normal range of motion, no tenderness, supple, no stridor. [] Cardiovascular:Heart rate regular rhythm, no murmur [] Lungs & Thorax: Bilateral breath sounds clear to auscultation [] Abdomen: Bowel sounds normal, soft, no tenderness, no masses, no pulsatile masses. [] Skin: Warm, dry, no erythema, no rash. [] Back: No tenderness, no CVA tenderness. [] Extremities: No tenderness, no cyanosis, no clubbing, ROM intact, no edema. [] Neurologic: Alert and oriented X 3, normal motor function, normal sensory function, no focal deficits noted. [] Psychologic: Affect normal, judgement normal, mood normal. [] Current Patient Data: Vital Signs: Vital Signs Date Time Temp Pulse Resp B/P (MAP) Pulse Ox O2 Delivery O2 Flow Rate FiO2 09/25/21 12:14 97.8 82 16 116/76 (89) 99 Room Air 97.8 EKG: EKG: [] Radiology/Procedures: Radiology/Procedures: [] Course & Med Decision Making: Course & Med Decision Making Pertinent Labs and Imaging studies reviewed. (See chart for details) [] Dragon Disclaimer: Dragon Disclaimer: This electronic medical record was generated, in whole or in part, using a voice recognition dictation system. Departure Departure Impression: Primary Impression: Chronic back pain Qualified Codes: M54.6 - Pain in thoracic spine; G89.29 - Other chronic pain Additional Impressions: Right knee pain Qualified Codes: M25.561 - Pain in right knee Gout Qualified Codes: M10.9 - Gout, unspecified Disposition: HOME / SELF CARE / HOMELESS Condition: STABLE Referrals: NO PCP (PCP) NIHARIKA STEWART MD Patient Instructions: Arthritis, Nonspecific, [id number], Back Pain, Adult, [id number], Chronic Back Pain, Chronic Pain Management-Brief, Gout, [id number] Additional Instructions: May continue to use [id number] naproxen or ibuprofen as needed. Scripts Prednisone (PREDNISONE) 20 Mg Tablet 2 TAB PO DAILY for 4 Days, #8 TAB Start this medication tomorrow 09/26/2021. Prov: TARYN PITTS DO 09/25/21 Hydrocodone Bit/Acetaminophen (HYDROCODONE-APAP 5-325 ) 1 Tab Tablet 0.5-1 TAB PO PRN Q6HRS PRN for PAIN, #10 TAB 0 Refills Prov: TARYN PITTS DO 09/25/21 Orphenadrine Citrate (ORPHENADRINE CITRATE) 100 Mg Tablet.er 100 MG PO BID PRN for MUSCLE PAIN, #14 TAB Prov: TARYN PITTS DO 09/25/21 TARYN PITTS DO September 25, 2021 13:24
== END 2021-09-25 13:40 | disposition home or self-care (01) ==
LOC: ER 11:01
DX: M10.9 Gout, unspecified (principal); M25.561 Pain in right knee; M54.6 Pain in thoracic spine; G89.29 Other chronic pain; F17.200 Nicotine dependence, unspecified, uncomplicated
CPT/HCPCS: 96372; 99283; J2360